=== PATIENT | female | born 1945 | race Caucasian/White ===

== ENCOUNTER → 2017-11-15 | Outpatient (CLI) | payer MEDICARE, SELFPAY | PROVIDERS: Family Provider Internal Medicine Adolescent Medicine; Visit Provider Internal Medicine | DX: R06.00 Dyspnea, unspecified (principal); I25.10 Atherosclerotic heart disease of native coronary artery without angina pectoris | CPT/HCPCS: 94060; 94640; 94726; 94729 ==

== ENCOUNTER → 2018-03-18 10:40 | Outpatient (POV) | payer MEDICARE, SELFPAY | PROVIDERS: Visit Provider Internal Medicine | DX: Z00.00 Encounter for general adult medical examination without abnormal findings (principal) ==

== ENCOUNTER → 2018-03-28 11:43 | Outpatient (CLI) | payer MEDICARE, SELFPAY | PROVIDERS: Visit Provider Internal Medicine Cardiovascular Disease | DX: R06.00 Dyspnea, unspecified (principal) | CPT/HCPCS: 36415; 83880 ==

== ENCOUNTER → 2018-04-28 09:32 | Outpatient (CLI) | payer MEDICARE, SELFPAY ==
[2018-04-28 13:01] VITALS: BP 135/82; BP 138/90; PULSE 81; PULSE 90; RESP 18; RESP 24; O2SAT 94; O2SAT 95
[2018-04-28 13:07] VITALS: PULSE 81; PULSE 84
== END ==
PROVIDERS: Family Provider Internal Medicine Adolescent Medicine; PCP Internal Medicine Adolescent Medicine; Visit Provider Internal Medicine
DX: R06.02 Shortness of breath (principal)
CPT/HCPCS: 94060; 94618; 94640; 94726; 94729

== ENCOUNTER → 2018-05-13 10:09 | Outpatient (POV) | payer MEDICARE, SELFPAY | PROVIDERS: Family Provider Internal Medicine Adolescent Medicine; PCP Internal Medicine Adolescent Medicine; Visit Provider Internal Medicine | DX: Z00.00 Encounter for general adult medical examination without abnormal findings (principal) ==

== ENCOUNTER → 2018-09-24 10:19 | Outpatient (CLI) | payer MEDICARE, SELFPAY ==
[2018-09-24 13:28] LABS: Alanine Aminotransferase 22 U/L (12-78); Albumin Level 3.8 gm/dL (3.4-5.0); Alkaline Phosphatase 115 U/L (46-116); Anion Gap 17.8 mEq/L (5-15); Aspartate Amino Transferase 19 U/L (15-37); Bilirubin,Direct 0.1 mg/dL (0.0-0.2); Bilirubin,Indirect 0.6 mg/dL (0.0-0.9); Bilirubin,Total 0.7 mg/dL (0.2-1.0); Blood Urea Nitrogen 25 mg/dL (7-18); Calcium 9.7 mg/dL (8.5-10.1); Carbon Dioxide 24 mmol/L (21.0-32.0); Chloride 103 mmol/L (98-107); Cholesterol 205 mg/dL (140-200); Creatinine,Serum 1.57 mg/dL (0.55-1.02); Estimated Glomerular Filt Rate 32 ml/min (>60); GFR (African American) 39 ML/MIN (>60); Glucose 144 mg/dL (74-106); HDL Cholesterol 51 mg/dL (29-89); LDL Cholesterol 86 mg/dL (0-130); Potassium 4.8 mmoL/L (3.5-5.1); Sodium 140 mmol/L (136-145); Total Protein,Serum 7.3 gm/dL (6.4-8.2); Triglycerides 341 mg/dL (30-200); VLDL Cholesterol 68 mg/dL (0-40)
== END ==
PROVIDERS: Visit Provider Physician Assistant
DX: G47.33 Obstructive sleep apnea (adult) (pediatric) (principal); I10 Essential (primary) hypertension; I11.9 Hypertensive heart disease without heart failure; I20.9 Angina pectoris, unspecified; I25.118 Atherosclerotic heart disease of native coronary artery with other forms of angina pectoris; R06.09 Other forms of dyspnea; R53.83 Other fatigue
CPT/HCPCS: 36415; 80048; 80061; 80076; 83880

== ENCOUNTER → 2018-09-30 07:49 | Outpatient (CLI) | payer MEDICARE, SELFPAY ==
--- NOTE | 2018-09-30 07:51 | CA_ITS ---
PROCEDURE: 2-D M-mode and color Doppler study INDICATIONS FOR THE TEST: Chest pain + COPD Heart Murmur Tobacco Smoking Palpitations Fatigue+ Syncope Edema+ Hypertension+Diabetes Mellitus Rheumatic Fever SOB+SHIRLEY+Obesity Hyperlipidemia Family History HD Additional History cad PATIENT INFORMATION HEIGHT: 61 WEIGHT:160 GENDER: Female B/P:119/85 2-D/M-MODE INTERPRETATION: 2-D MEASUREMENTS OBSERVED VALUES IN CMS Right Ventricular Dimension (RVDd) 1.3 Interventricular Septum (Thickness)(IVsd) 0.7 Left Ventricular Internal Dimensions(LVIDd) 6.3 Left Ventricular Posterior Wall (Thickness)(LVPWd) 0.8 Aortic Root 2.0 Aortic Cusp Separation 1.3 Left Atrial Dimensions (LAD) 3.8 2D 1. Left atrium is moderately enlarged, left ventricle is moderately dilated, severely reduced left ventricular systolic function, visually estimated ejection fraction approximately 20%, left ventricle is globally hypokinetic. 2. The right atrium and right ventricle are normal size and contractility. 3. The aortic valve is minimally thickened and fibrosed. 4. The mitral and tricuspid valve leaflets are minimally thickened. 5. The pulmonic valve is poorly visualized. 6. No significant pericardial effusion noted. DOPPLER INTERROGATION: Doppler interrogation of the aortic, mitral and tricuspid valvular presence of mild mitral and tricuspid regurgitation, tricuspid regurgitation jet velocity is inadequate for calculation of the right ventricular systolic pressure, Doppler evidence of low cardiac output state seen. Tissue Doppler is inconclusive CONCLUSION: 1. Moderately enlarged left atrium, moderately dilated left ventricle, severely reduced left ventricular systolic function, visually estimated ejection fraction of 20%, left ventricle is globally hypokinetic, Doppler evidence of low cardiac output state seen. 2. Mild mitral and tricuspid regurgitation 3. No significant pericardial effusion noted.
== END ==
PROVIDERS: PCP Internal Medicine Adolescent Medicine; Visit Provider Internal Medicine
DX: G47.33 Obstructive sleep apnea (adult) (pediatric) (principal); I10 Essential (primary) hypertension; I11.9 Hypertensive heart disease without heart failure; I20.9 Angina pectoris, unspecified; I25.118 Atherosclerotic heart disease of native coronary artery with other forms of angina pectoris; R06.09 Other forms of dyspnea; R53.83 Other fatigue
CPT/HCPCS: 93306

== ENCOUNTER → 2018-10-10 09:07 | Outpatient (CLI) | payer MEDICARE, SELFPAY ==
[2018-10-10 11:13] LABS: Anion Gap 16.1 mEq/L (5-15); Blood Urea Nitrogen 28 mg/dL (7-18); Calcium 9.4 mg/dL (8.5-10.1); Carbon Dioxide 29 mmol/L (21.0-32.0); Chloride 101 mmol/L (98-107); Creatinine,Serum 1.26 mg/dL (0.55-1.02); Estimated Glomerular Filt Rate 42 ml/min (>60); GFR (African American) 50 ML/MIN (>60); Glucose 118 mg/dL (74-106); Sodium 142 mmol/L (136-145)
[2018-10-10 11:16] LABS: Potassium 4.1 mmoL/L (3.5-5.1)
== END ==
PROVIDERS: Internal Medicine Cardiovascular Disease; PCP Internal Medicine Adolescent Medicine; Visit Provider Internal Medicine
DX: I20.9 Angina pectoris, unspecified; R06.09 Other forms of dyspnea; I11.9 Hypertensive heart disease without heart failure; R60.9 Edema, unspecified; G47.33 Obstructive sleep apnea (adult) (pediatric); R53.83 Other fatigue
CPT/HCPCS: 36415; 80048

== ENCOUNTER → 2018-10-20 09:16 | Outpatient (CLI) | payer MEDICARE, SELFPAY ==
[2018-10-20 14:34] LABS: Anion Gap 14.9 mEq/L (5-15); Blood Urea Nitrogen 19 mg/dL (7-18); Carbon Dioxide 26 mmol/L (21.0-32.0); Chloride 105 mmol/L (98-107); Creatinine,Serum 1.19 mg/dL (0.55-1.02); Estimated Glomerular Filt Rate 44 ml/min (>60); GFR (African American) 54 ML/MIN (>60); Glucose 124 mg/dL (74-106); Potassium 3.9 mmoL/L (3.5-5.1); Sodium 142 mmol/L (136-145)
== END ==
PROVIDERS: PCP Internal Medicine Adolescent Medicine; Visit Provider Internal Medicine Cardiovascular Disease
DX: I25.10 Atherosclerotic heart disease of native coronary artery without angina pectoris; I11.9 Hypertensive heart disease without heart failure; R06.00 Dyspnea, unspecified; R53.83 Other fatigue; R60.9 Edema, unspecified; G47.33 Obstructive sleep apnea (adult) (pediatric)
CPT/HCPCS: 36415; 80048

== ENCOUNTER → 2018-11-13 09:49 | Outpatient (CLI) | payer MEDICARE, SELFPAY ==
[2018-11-13 13:27] LABS: Basophils # 0.1 K/mm3 (0-0.2); Basophils % 0.7 % (0.1-2.0); Eosinophils # 0.2 K/mm3 (0.0-0.4); Eosinophils % 2.4 % (0.1-12.0); Hematocrit 36.5 % (37.0-47.0); Hemoglobin 11.5 g/dL (12.2-16.2); Lymphocytes # 2.3 K/mm3 (0.7-4.5); Lymphocytes % 33.7 % (10-50); Mean Corpuscular HGB Conc 31.6 g/dL (31.8-35.4); Mean Corpuscular Hemoglobin 26.7 pg (27.0-31.2); Mean Corpuscular Volume 84.4 fl (81-99); Mean Platelet Volume 8.6 fl (7.4-10.4); Monocytes # 0.3 K/mm3 (0.1-1.0); Monocytes % 4.4 % (1.7-9.3); Neutrophils % 58.8 % (37.0-80.0); Platelet Count 224 K/mm3 (142-424); Red Blood Count 4.32 M/mm3 (4.20-5.40); Red Cell Distribution Width 14.9 % (11.5-17.5); White Blood Count 6.7 K/mm3 (4.8-10.8)
[2018-11-13 14:14] LABS: Anion Gap 15.3 mEq/L (5-15); Blood Urea Nitrogen 18 mg/dL (7-18); Carbon Dioxide 25 mmol/L (21.0-32.0); Chloride 104 mmol/L (98-107); Creatinine,Serum 1.22 mg/dL (0.55-1.02); Estimated Glomerular Filt Rate 43 ml/min (>60); Free Thyroxine Index 2.8 ug/dL (5.93-13.13); GFR (African American) 52 ML/MIN (>60); Glucose 120 mg/dL (74-106); Potassium 4.3 mmoL/L (3.5-5.1); Sodium 140 mmol/L (136-145); T4 (Thyroxine) 8.3 ug/dl (4.7-13.3); Thyroid Stimulating Hormone 2.93 uIU/ml (0.358-3.740); Triiodothryronine (T3) Uptake 34 % (31-39)
== END ==
PROVIDERS: PCP Internal Medicine Adolescent Medicine; Visit Provider Internal Medicine Cardiovascular Disease
DX: I25.118 Atherosclerotic heart disease of native coronary artery with other forms of angina pectoris; I42.0 Dilated cardiomyopathy; R06.09 Other forms of dyspnea
CPT/HCPCS: 36415; 80048; 84436; 84443; 84479; 85025

== ENCOUNTER → 2018-12-15 20:06 | Outpatient (CLI) | payer MEDICARE, SELFPAY | PROVIDERS: PCP Internal Medicine Adolescent Medicine; Visit Provider Internal Medicine Cardiovascular Disease | DX: G47.33 Obstructive sleep apnea (adult) (pediatric) (principal) | CPT/HCPCS: 95810 ==

== ENCOUNTER 2018-12-25 14:01 | Inpatient (IN) ==
[2018-12-25 14:34] LABS: White Blood Count 8.7 K/mm3 (4.8-10.8)
[2018-12-25 14:35] LABS: Basophils % 0.2 % (0.1-2.0); Eosinophils # 0.1 K/mm3 (0.0-0.4); Eosinophils % 1.1 % (0.1-12.0); Hematocrit 42.6 % (37.0-47.0); Hemoglobin 13.4 g/dL (12.2-16.2); Lymphocytes # 1.5 K/mm3 (0.7-4.5); Lymphocytes % 17.5 % (10-50); Mean Corpuscular HGB Conc 31.4 g/dL (31.8-35.4); Mean Corpuscular Hemoglobin 26.7 pg (27.0-31.2); Mean Corpuscular Volume 85.1 fl (81-99); Mean Platelet Volume 8.3 fl (7.4-10.4); Monocytes # 0.5 K/mm3 (0.1-1.0); Monocytes % 5.5 % (1.7-9.3); Neutrophils # 6.6 K/mm3 (1.8-7.8); Neutrophils % 75.7 % (37.0-80.0); Platelet Count 282 K/mm3 (142-424); Red Blood Count 5.01 M/mm3 (4.20-5.40); Red Cell Distribution Width 14.8 % (11.5-17.5)
[2018-12-25 14:54] LABS: Albumin Level 3.8 gm/dL (3.4-5.0); Anion Gap 16.5 mEq/L (5-15); Bilirubin,Total 1.4 mg/dL (0.2-1.0); Calcium 9.4 mg/dL (8.5-10.1); Digoxin 2.92 ng/mL (1.15-2.56); Globulin 3.8 gm/dl (1.3-3.2); Potassium 3.5 mmoL/L (3.5-5.1); Total Protein,Serum 7.6 gm/dL (6.4-8.2)
--- NOTE | 2018-12-25 14:57 | Emergency Department Note ---
ED Disposition Clinical Impression: Gastroenteritis, Dehydration, Nausea Nausea with vomiting Qualifiers: Vomiting type: unspecified Vomiting Intractability: unspecified Qualified Code(s): R11.2 - Nausea with vomiting, unspecified Disposition: Admitted as Observation Condition on Discharge: Fair Instructions: DI for Diarrhea and Traveler's Diarrhea -- Adult, DI for Diarrhea and Traveler's Diarrhea -- Child, DI for Nausea -- Adult, DI for Nausea -- Child Referrals: David Lewis MD [Primary Care Provider] - - Critical Care Critical Care Time: No Attestation: On 12/25/18, the high probability of a clinically significant, sudden or life threatening deterioration of the following system(s) required my full and direct attention, intervention and personal management. The time I documented below is in addition to time spent performing reported procedures but includes the following listed in this critical care notation. Medical Decision Making - Medical Records Medical records reviewed: Yes: I reviewed the patient's medical records. - Augustine Inquiry Pt receiving controlled substance: No Augustine was queried for this patient: No Vital Signs: 12/25/18 14:02 12/25/18 15:20 Temperature 98.5 F Temperature Source Oral Pulse Rate [Right Radial] 89 69 Respiratory Rate 20 18 Blood Pressure [Right Arm] 105/58 L 112/51 L Blood Pressure Mean [Right Arm] 73 71 Blood Pressure Source [Right Arm] Automatic Cuff Blood Pressure Position [Right Arm] Sitting 02 Sat by Pulse Oximetry 99 96 Oxygen Delivery Method Room Air Room Air - Lab Data Lab results reviewed: Yes: I reviewed the patient's lab results. Lab Results 12/25/18 14:25: WBC 8.7, RBC 5.01, Hgb 13.4, Hct 42.6, MCV 85.1, MCH 26.7 L, MCHC 31.4 L, RDW 14.8, Plt Count 282, MPV 8.3, Neut % (Auto) 75.7, Lymph % (Auto) 17.5, [place] % (Auto) 5.5, Eos % (Auto) 1.1, Baso % (Auto) 0.2, Neut # (Auto) 6.6, Lymph # (Auto) 1.5, [place] # (Auto) 0.5, Eos # (Auto) 0.1, Baso # (Auto) 0.0 12/25/18 14:25: Sodium 142, Potassium 3.5, Chloride 102, Carbon Dioxide 27, Anion Gap 16.5 H, BUN 17, Creatinine 1.84 H, Estimated Creat Clear 29, Estimated GFR 27 L, Est GFR ( Amer) 33 L, Glucose 164 H, Calcium 9.4, Total Bilirubin 1.4 H, AST 32, ALT 29, Alkaline Phosphatase 110, Troponin I 0.04, Total Protein 7.6, Albumin 3.8, Globulin 3.8 H, Albumin/Globulin Ratio 1.0 L, Digoxin 2.92 H* Result diagrams: 12/25/18 14:25 12/25/18 14:25 Orders (Tests/Meds): ED MEDICATIONS Generic Name Dose Route Start Last Admin Trade Name Freq PRN Reason Stop Dose Admin Lactated Ringer's 1,000 mls @ 999 mls/hr 12/25/18 14:30 12/25/18 14:27 Lactated Ringer's 1000 Ml Bag IV 12/25/18 15:30 999 mls/hr .[id number] [place] Administration Discontinued Medications Generic Name Dose Route Start Last Admin Trade Name Freq PRN Reason Stop Dose Admin Ondansetron HCl 4 mg 12/25/18 14:23 12/25/18 14:27 Zofran 4mg/2ml Vial IV 12/25/18 14:24 4 mg ONCE ONE Administration Medical Decision Narrative: Dehydration gastroenteritis possible hypokalemia, possible digitalis reaction, patient will be hydrated but because of her age and recent catheterization most probably will be admitted for 24 hours Patient's laboratories reviewed borderline digitoxicity consistent with dehydration patient will be admitted for hydration and observation next 24 hours General Adult HPI - General Chief complaint: Nausea/Vomiting/Diarrhea Stated complaint: nausea/vomiting/diarrhea Time Seen by Provider: 12/25/18 14:20 Mode of Arrival: Family Vehicle Source of Information: Patient, Relative Limitations: No Limitations Description of Symptoms (Recalled from ER Triage Doc. by RN): pt c/o nausea,vomiting,diarrhea. states diarrhea started on the 11/27/18 after she started her digoxin and the nausea and vomiting started on 12/19/18 after her heart cath. pt sent from 's office. 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 she was recently started on dig patient denies fever or chills is here with her family - Related Data Home Medications Medication Instructions Recorded Confirmed aspirin 81 mg tablet,delayed 81 mg PO QDAY 12/03/17 12/25/18 release fluticasone 50 mcg/actuation nasal 1 spray INTRANASAL DAILY 09/24/18 12/25/18 spray,suspension levothyroxine 50 mcg capsule 50 mcg PO QDAY cap 11/06/18 12/25/18 Albuterol Sulfate [Proventil-HFA 1 - 2 puffs IH Q6HP PRN 12/01/18 12/25/18 90mcg/puff Inh] Atorvastatin Calcium [Lipitor 40mg 40 mg PO QDAY 12/01/18 12/25/18 Tablet] Carvedilol [Carvedilol 12.5mg Tab] 12.5 mg PO BID 12/01/18 12/25/18 Digoxin 0.125 mg PO DAILY 12/01/18 12/25/18 Fluoxetine HCl [Prozac] 20 mg PO QDAY 12/01/18 12/25/18 Furosemide [Furosemide 20mg Tab] 40 mg PO QDAY 12/01/18 12/25/18 Losartan Potassium 100 mg PO DAILY 12/01/18 12/25/18 Omeprazole [Omeprazole 20mg 20 mg PO BID 12/01/18 12/25/18 Capsule] Ropinirole HCl [Requip] 1 mg PO QDAY 12/01/18 12/25/18 Allergies Allergy/AdvReac Type Severity Reaction Status Date / Time Penicillins [PENICILLINS] Allergy Unknown I-HIVES Verified 12/25/18 14:22 [facility] History - Hepatitis A Screen Drug use history?: No High risk sexual behaviors?: No History of sexually transmitted infection?: No Currently employed?: No Childcare worker?: No Do you have indoor plumbing?: Yes Do you have electricity?: Yes Attestation statement:: This patient has been screened for Hepatitis A risk factors. I have reviewed the patient's past medical history: Yes Medical History: Reports:: Atherosclerotic Heart Disease, Coronary Artery Disease, Hypertension Denies:: Cancer, Diabetes Mellitus Type 1, Diabetes Mellitus Type 2, MRSA Comment: NADIA Other Surgeries: Yes: No Previous Surgery, Cardiac Catheterization, Coronary Stent Amputation: No Fractures: No - Social History Smoking Status: Former smoker Alcohol Intake: never Alcohol Intake Frequency:: other Substance Use Type: denies use Occupational Status: retired - Psychiatric History Expresses thoughts of harming self/others: None Suicide Plan Description: No Plan Family Hx:: No significant family history ROS Obtained: Yes All systems reviewed & no additional complaints - Constitutional Constitutional: Reports as per HPI Physical Exam - General General appearance: alert, in no apparent distress (Not in any distress now but does have nausea oral mucosa dry) - Head Head exam: atraumatic, normocephalic, normal inspection - Eye Eye exam: Present: normal appearance, PERRL, EOMI - ENT ENT exam: Present: normal exam, normal oropharynx, mucous membranes dry, TM's normal bilaterally, normal external ear exam - Neck Neck exam: Present: normal inspection, full ROM, trachea midline. Absent: meningismus, lymphadenopathy - Chest Chest inspection: Present: normal inspection, symmetric chest wall rise. Absent: tenderness - Respiratory Respiratory exam: Present: normal lung sounds bilaterally. Absent: respiratory distress - Cardiovascular Cardiovascular exam: Present: regular rate, normal rhythm. Absent: JVD - Abdominal Exam Abdominal exam: Present: soft, normal bowel sounds. Absent: distention, tenderness, guarding - Extremities Exam Extremities exam: Present: normal inspection, full ROM, normal capillary refill. Absent: calf tenderness - Back Exam Back exam: Present: normal inspection. Absent: tenderness - Neurological Exam Neurological exam: Present: alert, oriented X3 - Psychiatric Psychiatric exam: Present: normal affect, normal mood - Skin Skin exam: Present: warm, dry, intact, normal color - Lymphatic Lymphatic Findings: no adenopathy
--- NOTE | 2018-12-25 21:55 | History & Physical Report ---
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 She underwent LHC last week with stenting of her LAD and was also started on daily digoxin. Since that time she describes progressive nausea, vomiting, multiple diarrhea stools, weakness, abnormal vision and also fever over 100. ED evaluation revealed elevated digoxin level, creatinine above baseline constituting ARIES and she was admitted for cardiac monitoring and IV hydration. [facility] History I have reviewed the patient's past medical history: Yes Medical History: Reports:: Atherosclerotic Heart Disease, Cardiomyopathy, Congestive Heart Failure, Chronic Obstructive Pulmonary Disease (COPD), Coronary Artery Disease, Hyperlipidemia, Hypertension, Renal Insufficiency, Urinary Tract Infection Denies:: Cancer, Diabetes Mellitus Type 1, Diabetes Mellitus Type 2, MRSA Have you ever received a pneumonia vaccine?: Yes Have you received a flu vaccine this season?: Yes Other Medical History: Reports: Arthritis, Thyroid Disease Laterality Cases: Left: Other (foot) Other Surgeries: Yes: Appendectomy, Cardiac Catheterization, Cholecystectomy, Coronary Stent, , Other (back surgery) Amputation: No Fractures: No - *Social History Educational Level: Attended College Smoking Status: Never smoker Alcohol Intake: never Alcohol Intake Frequency:: other Substance Use Type: denies use Occupational Status: retired Housing: house Household Members: spouse Travel in the last 8 weeks: None - Psychiatric History Expresses thoughts of harming self/others: None Suicide Plan Description: No Plan Pschychiatric History:: Reports:: Anxiety (on fluoxetine) *Family Hx:: No significant family history Review of Systems - Review of Systems Review of systems:: pertinent systems reviewed and negative unless documented below - Constitutional Reports anorexia, Reports fatigue, Reports weakness - Eyes Reports blurry vision - ENT Reports dry mouth, Denies abnormal hearing - *Cardiovascular Reports shortness of breath with activity, Reports lightheadedness, Denies chest pain, Denies fast heart rate, Denies fainting - *Respiratory Denies cough - *Gastrointestinal Reports change in bowel habits, Reports loose stools, Reports nausea, Reports vomiting, Denies abdominal pain - *Musculoskeletal Reports back pain - *Neurologic Reports weakness Meds Home Medications Medication Instructions Recorded Confirmed Type aspirin 81 mg tablet,delayed 81 mg PO QDAY 12/03/17 12/25/18 History release fluticasone 50 mcg/actuation nasal 1 spray INTRANASAL DAILY 09/24/18 12/25/18 History spray,suspension levothyroxine 50 mcg capsule 50 mcg PO QDAY cap 11/06/18 12/25/18 History Albuterol Sulfate [Proventil-HFA 1 - 2 puffs IH Q6HP PRN 12/01/18 12/25/18 History 90mcg/puff Inh] Atorvastatin Calcium [Lipitor 40mg 40 mg PO QDAY 12/01/18 12/25/18 History Tablet] Carvedilol [Carvedilol 12.5mg Tab] 12.5 mg PO BID 12/01/18 12/25/18 History Digoxin 0.125 mg PO DAILY 12/01/18 12/25/18 History Fluoxetine HCl [Prozac] 20 mg PO QDAY 12/01/18 12/25/18 History Furosemide [Furosemide 20mg Tab] 40 mg PO QDAY 12/01/18 12/25/18 History Losartan Potassium 100 mg PO DAILY 12/01/18 12/25/18 History Omeprazole [Omeprazole 20mg 20 mg PO BID 12/01/18 12/25/18 History Capsule] Ropinirole HCl [Requip] 1 mg PO QDAY 12/01/18 12/25/18 History Allergies Allergy/AdvReac Type Severity Reaction Status Date / Time Penicillins [PENICILLINS] Allergy Unknown I-HIVES Verified 12/25/18 14:22 Exam Vital signs and Labs for Last 24 Hours: Temp Pulse Resp BP Pulse Ox 98.8 F 85 17 112/63 95 12/25/18 19:48 12/25/18 19:48 12/25/18 19:48 12/25/18 19:48 12/25/18 19:48 Laboratory Results - last 24 hr 12/25/18 14:25: WBC 8.7, RBC 5.01, Hgb 13.4, Hct 42.6, MCV 85.1, MCH 26.7 L, MCHC 31.4 L, RDW 14.8, Plt Count 282, MPV 8.3, Neut % (Auto) 75.7, Lymph % (Auto) 17.5, [place] % (Auto) 5.5, Eos % (Auto) 1.1, Baso % (Auto) 0.2, Neut # (Auto) 6.6, Lymph # (Auto) 1.5, [place] # (Auto) 0.5, Eos # (Auto) 0.1, Baso # (Auto) 0.0 12/25/18 14:25: Sodium 142, Potassium 3.5, Chloride 102, Carbon Dioxide 27, Anion Gap 16.5 H, BUN 17, Creatinine 1.84 H, Estimated Creat Clear 29, Estimated GFR 27 L, Est GFR ( Amer) 33 L, Glucose 164 H, Calcium 9.4, Total Bilirubin 1.4 H, AST 32, ALT 29, Alkaline Phosphatase 110, Troponin I 0.04, Total Protein 7.6, Albumin 3.8, Globulin 3.8 H, Albumin/Globulin Ratio 1.0 L, Digoxin 2.92 H* I & O for Last 24 hours: Intake & Output 12/23/18 12/24/18 12/25/18 12/26/18 11:59 11:59 11:59 11:59 Intake Total 1660 / 1660 Balance 1660 / 1660 Weight 151 lb 7 oz - Constitutional no acute distress, cooperative - *Routine HEENT Exam Head: Present: normocephalic Eye: Present: conjunctivae pink ENT: Present: mucous membranes moist - *Routine Neck Exam Present: supple. Absent: lymphadenopathy - *Routine Respiratory Exam Present: CTA bilaterally - *Routine Cardiovascular Exam Present: RRR, murmur - *Routine Abdominal Exam Present: soft, tenderness. Absent: distended, rebound (hyperactive BS throughout) - *Routine Extremities Exam Present: pulses intact. Absent: clubbing, edema - *Routine Skin Exam Present: intact, warm. Absent: rash - *Routine Neurological Exam Present: oriented X3 Assessment and Plan (1) ARIES (acute kidney injury) Current visit: Yes Status: Acute Category: Medical Code(s): N17.9 - Acute kidney failure, unspecified (2) Digoxin toxicity Current visit: Yes Status: Acute Qualifiers: Injury intent: accidental or unintentional Category: Medical Code(s): T46.0X1A - Poisoning by cardiac-stimulant glycosides and drugs of similar action, accidental (unintentional), initial encounter (3) Cardiomyopathy Current visit: Yes Status: Acute Category: Medical Code(s): I42.9 - Cardiomyopathy, unspecified (4) Dehydration Current visit: Yes Status: Acute Category: Medical Code(s): E86.0 - Dehydration (5) Nausea with vomiting Current visit: Yes Status: Acute Qualifiers: Vomiting type: unspecified Vomiting Intractability: unspecified Qualified Code(s): R11.2 - Nausea with vomiting, unspecified Category: Medical Code(s): R11.2 - Nausea with vomiting, unspecified (6) Diarrhea Current visit: No Status: Acute Qualifiers: Diarrhea type: unspecified type Qualified Code(s): R19.7 - Diarrhea, unspecified Category: Medical Code(s): R19.7 - Diarrhea, unspecified - Assessment and plan all Dx Assessment and Plan for all problems:: Hold digoxin and rehydrate. Will trend dig level and creatinine, monitor telemetry and follow with cardiology. Clear liquid diet as tolerated Stool PCR ordered to assess her reported history of fever but has been afebrile since admission today
[2018-12-26 07:05] LABS: Basophils % 0.3 % (0.1-2.0); Eosinophils # 0.1 K/mm3 (0.0-0.4); Eosinophils % 1.6 % (0.1-12.0); Hematocrit 33.3 % (37.0-47.0); Lymphocytes # 1.7 K/mm3 (0.7-4.5); Lymphocytes % 25.8 % (10-50); Mean Corpuscular HGB Conc 31.9 g/dL (31.8-35.4); Mean Corpuscular Hemoglobin 26.9 pg (27.0-31.2); Mean Corpuscular Volume 84.4 fl (81-99); Mean Platelet Volume 8.3 fl (7.4-10.4); Monocytes # 0.5 K/mm3 (0.1-1.0); Monocytes % 8.1 % (1.7-9.3); Neutrophils # 4.2 K/mm3 (1.8-7.8); Neutrophils % 64.2 % (37.0-80.0); Platelet Count 187 K/mm3 (142-424); Red Blood Count 3.94 M/mm3 (4.20-5.40); Red Cell Distribution Width 14.8 % (11.5-17.5); White Blood Count 6.5 K/mm3 (4.8-10.8)
--- NOTE | 2018-12-26 07:20 | Pharmacy Consult Notes ---
[facility] Pharmacy VTE Monitoring - Patient Demographics Admission date: 12/25/18 Report Date: 12/26/18 Time: 07:19 Allergies/Adverse Reactions: Patient Allergies Penicillins [PENICILLINS] Allergy (Unknown, Verified 12/25/18 14:22) I-HIVES Height: 1.55 m Weight: 70.392 kg Patient Problems: Current Active Problems Nausea (Acute) Gastroenteritis (Acute) Dehydration (Acute) ARIES (acute kidney injury) (Acute) Digoxin toxicity (Acute) Cardiomyopathy (Acute) Nausea with vomiting (Acute) - VTE Risk Labs: VTE Related Lab Results Hgb 13.4 g/dL (12.2-16.2) 12/25/18 14:25 Hct 33.3 % (37.0-47.0) L 12/26/18 06:42 Plt Count 187 K/mm3 (142-424) D 12/26/18 06:42 BUN 17 mg/dL (7-18) 12/25/18 14:25 Creatinine 1.84 mg/dL (0.55-1.02) H 12/25/18 14:25 Estimated Creat Clear 29 mL/min (50-200) 12/25/18 14:25 Was VTE Risk Assessment Performed: Yes VTE Score: 6 VTE Risk Level: Moderate Risk Clinical Trial Participant: No - Prophylaxis VTE Prophylaxis Ordered?: Yes Types of VTE Prophylaxis: TEDS Knee High
[2018-12-26 07:27] LABS: Hemoglobin 10.7 g/dL (12.2-16.2)
[2018-12-26 07:37] LABS: Anion Gap 13.2 mEq/L (5-15); Digoxin 2.67 ng/mL (1.15-2.56); Potassium 3.2 mmoL/L (3.5-5.1)
[2018-12-26 07:43] LABS: Calcium 8.2 mg/dL (8.5-10.1)
--- NOTE | 2018-12-26 08:03 | Progress Note ---
Internal Medicine - PN: Subj *Date: 12/26/18 *Time: 08:00 Interval history: Patient somewhat better, however continues to have some abdominal cramping and feels very weak. Exam Vital signs and Labs for Last 24 Hours: Temp Pulse Resp BP Pulse Ox 98.6 F 83 18 123/60 95 12/26/18 04:00 12/26/18 04:00 12/26/18 04:00 12/26/18 04:00 12/26/18 04:00 Laboratory Results - last 24 hr 12/25/18 14:25: WBC 8.7, RBC 5.01, Hgb 13.4, Hct 42.6, MCV 85.1, MCH 26.7 L, MCHC 31.4 L, RDW 14.8, Plt Count 282, MPV 8.3, Neut % (Auto) 75.7, Lymph % (Auto) 17.5, [place] % (Auto) 5.5, Eos % (Auto) 1.1, Baso % (Auto) 0.2, Neut # (Auto) 6.6, Lymph # (Auto) 1.5, [place] # (Auto) 0.5, Eos # (Auto) 0.1, Baso # (Auto) 0.0 12/25/18 14:25: Sodium 142, Potassium 3.5, Chloride 102, Carbon Dioxide 27, Anion Gap 16.5 H, BUN 17, Creatinine 1.84 H, Estimated Creat Clear 29, Estimated GFR 27 L, Est GFR ( Amer) 33 L, Glucose 164 H, Calcium 9.4, Total Bilirubin 1.4 H, AST 32, ALT 29, Alkaline Phosphatase 110, Troponin I 0.04, Total Protein 7.6, Albumin 3.8, Globulin 3.8 H, Albumin/Globulin Ratio 1.0 L, Digoxin 2.92 H* 12/26/18 05:52: POC Glucose 127 H 12/26/18 06:42: WBC 6.5 D, RBC 3.94 L, Hgb 10.7 L D, Hct 33.3 L, MCV 84.4, MCH 26.9 L, MCHC 31.9, RDW 14.8, Plt Count 187 D, MPV 8.3, Neut % (Auto) 64.2, Lymph % (Auto) 25.8, [place] % (Auto) 8.1, Eos % (Auto) 1.6, Baso % (Auto) 0.3, Neut # (Auto) 4.2, Lymph # (Auto) 1.7, [place] # (Auto) 0.5, Eos # (Auto) 0.1, Baso # (Auto) 0.0 12/26/18 06:42: Sodium 142, Potassium 3.2 L, Chloride 106, Carbon Dioxide 26, Anion Gap 13.2, BUN 16, Creatinine 1.87 H, Estimated Creat Clear 30, Estimated GFR 26 L, Est GFR ( Amer) 32 L, Glucose 117 H D, Calcium 8.2 L D, Digoxin 2.67 H* I & O for Last 24 hours: Intake & Output 12/23/18 12/24/18 12/25/18 12/26/18 11:59 11:59 11:59 11:59 Intake Total 2882 / 2882 Balance 2882 / 2882 Weight 155 lb 3 oz Narrative: No jaundice or scleral icterus. Patient is pleasant, awake and alert. Oropharynx clear. No JVD. Lungs and the angles are clear. Heart rate regular. Abdomen is soft but diffusely tender with no rebound or guarding. No distal edema or clubbing. Neurologically intact Assessment and Plan (1) ARIES (acute kidney injury) Current visit: Yes Status: Acute Category: Medical Code(s): N17.9 - Acute kidney failure, unspecified Creatinine is unchanged overnight essentially. Continue low-dose intravenous fluids. Hold digoxin. Follow-up labs tomorrow. Acute kidney injury secondary to a combination of dehydration and digitoxin toxicity. (2) Digoxin toxicity Current visit: Yes Status: Acute Qualifiers: Injury intent: accidental or unintentional Category: Medical Code(s): T46.0X1A - Poisoning by cardiac-stimulant glycosides and drugs of similar action, accidental (unintentional), initial encounter Continue to hold digitalis. Follow-up labs tomorrow. (3) Cardiomyopathy Current visit: Yes Status: Acute Category: Medical Code(s): I42.9 - Cardiomyopathy, unspecified (4) Dehydration Current visit: Yes Status: Acute Category: Medical Code(s): E86.0 - Dehydration (5) Nausea with vomiting Current visit: Yes Status: Acute Qualifiers: Vomiting type: unspecified Vomiting Intractability: unspecified Qualified Code(s): R11.2 - Nausea with vomiting, unspecified Category: Medical Code(s): R11.2 - Nausea with vomiting, unspecified Multifactorial etiology. Phenergan for symptom medic relief. Continue IV fluids (6) Diarrhea Current visit: No Status: Acute Qualifiers: Diarrhea type: unspecified type Qualified Code(s): R19.7 - Diarrhea, unspecified Category: Medical Code(s): R19.7 - Diarrhea, unspecified (7) Chronic systolic heart failure Current visit: Yes Status: Acute Category: Medical Code(s): I50.22 - Chronic systolic (congestive) heart failure (8) Ischemic cardiomyopathy Current visit: Yes Status: Acute Category: Medical Code(s): I25.5 - Ischemic cardiomyopathy Cautious IV fluids given propensity for fluid overload.
[2018-12-27 07:32] LABS: Basophils % 0.2 % (0.1-2.0); Eosinophils # 0.1 K/mm3 (0.0-0.4); Hematocrit 32.4 % (37.0-47.0); Hemoglobin 10.4 g/dL (12.2-16.2); Lymphocytes # 1.6 K/mm3 (0.7-4.5); Lymphocytes % 24.5 % (10-50); Mean Corpuscular HGB Conc 32.1 g/dL (31.8-35.4); Mean Corpuscular Hemoglobin 26.9 pg (27.0-31.2); Mean Corpuscular Volume 83.6 fl (81-99); Monocytes # 0.4 K/mm3 (0.1-1.0); Monocytes % 6.8 % (1.7-9.3); Neutrophils # 4.3 K/mm3 (1.8-7.8); Neutrophils % 66.5 % (37.0-80.0); Platelet Count 207 K/mm3 (142-424); Red Blood Count 3.88 M/mm3 (4.20-5.40); Red Cell Distribution Width 15.1 % (11.5-17.5); White Blood Count 6.4 K/mm3 (4.8-10.8)
[2018-12-27 07:42] LABS: Anion Gap 15.1 mEq/L (5-15); Calcium 8.3 mg/dL (8.5-10.1); Potassium 3.1 mmoL/L (3.5-5.1)
--- NOTE | 2018-12-27 09:01 | Progress Note ---
Internal Medicine - PN: Subj *Date: 12/27/18 *Time: 09:00 Interval history: Patient is sleeping comfortably. When awakened she is alert. Pleasant. States that she feels somewhat better and that her stomach feels better. Tolerating oral antibiotics well. Exam Vital signs and Labs for Last 24 Hours: Temp Pulse Resp BP Pulse Ox 99.0 F 81 18 128/72 97 12/27/18 08:00 12/27/18 08:00 12/27/18 08:00 12/27/18 08:00 12/27/18 08:00 Laboratory Results - last 24 hr 12/25/18 13:00: Stl Aeromonas (PCR) Not detected, Stl C. cayetanensis PCR Not detected, Stool Rotavirus (PCR) Not detected, Stl Adenov F 40/41 PCR Not detected, Stool Astrovirus (PCR) Not detected, Stool Campylobacter PCR Not detected, Stl C.difficile Tox PCR Detected A, Stool Cryptosporidium PCR Not detected, Stl E.coli Shiga Tox PCR Not detected, Stool E coli O157 PCR Not detected, Stl Enterotoxigenic E PCR Not detected, Stool EPEC (PCR) Not detected, Stool EAEC (PCR) Not detected, Stl E. histolytica PCR Not detected, Stool Giardia Lamblia PCR Not detected, Stool Salmonella PCR Not detected, Stool Sapovirus (PCR) Not detected, Stl P. shigelloides PCR Not detected, Stl Shigella/EIEC PCR Not detected, St Y.enterocolitica PCR Not detected, Stool Vibrio (PCR) Not detected, Stl Vibrio cholerae PCR Not detected, Stl Norovirus GI/GII PCR Not detected 12/26/18 10:38: POC Glucose 123 H 12/27/18 06:55: WBC 6.4, RBC 3.88 L, Hgb 10.4 L, Hct 32.4 L, MCV 83.6, MCH 26.9 L, MCHC 32.1, RDW 15.1, Plt Count 207, MPV 8.0, Neut % (Auto) 66.5, Lymph % (Auto) 24.5, [place] % (Auto) 6.8, Eos % (Auto) 2.0, Baso % (Auto) 0.2, Neut # (Auto) 4.3, Lymph # (Auto) 1.6, [place] # (Auto) 0.4, Eos # (Auto) 0.1, Baso # (Auto) 0.0 12/27/18 06:55: Sodium 143, Potassium 3.1 L, Chloride 106, Carbon Dioxide 25, Anion Gap 15.1 H, BUN 13, Creatinine 1.93 H, Estimated Creat Clear 29, Estimated GFR 25 L, Est GFR ( Amer) 31 L, Glucose 120 H, Calcium 8.3 L I & O for Last 24 hours: Intake & Output 12/24/18 12/25/18 12/26/18 12/27/18 11:59 11:59 11:59 11:59 Intake Total 3122 / 3122 3602 / 3602 Balance 3122 / 3122 3602 / 3602 Weight 155 lb 3 oz 155 lb 3.005 oz Narrative: Patient is pleasant. No scleral icterus or jaundice. Lung clear in the anterior zamora. Heart rate regular with occasional ectopic beats. Good distal perfusion. Abdomen is soft, nontender. Slight distention but no rebound or guarding. Normal bowel sounds. Neurologically intact. Oropharynx clear. No JVD. Assessment and Plan (1) ARIES (acute kidney injury) Current visit: Yes Status: Acute Category: Medical Code(s): N17.9 - Acute kidney failure, unspecified (2) Digoxin toxicity Current visit: Yes Status: Acute Qualifiers: Injury intent: accidental or unintentional Category: Medical Code(s): T46.0X1A - Poisoning by cardiac-stimulant glycosides and drugs of similar action, accidental (unintentional), initial encounter (3) Cardiomyopathy Current visit: Yes Status: Acute Category: Medical Code(s): I42.9 - C ardiomyopathy, unspecified (4) Dehydration Current visit: Yes Status: Acute Category: Medical Code(s): E86.0 - Dehydration (5) Nausea with vomiting Current visit: Yes Status: Acute Qualifiers: Vomiting type: unspecified Vomiting Intractability: unspecified Qualified Code(s): R11.2 - Nausea with vomiting, unspecified Category: Medical Code(s): R11.2 - Nausea with vomiting, unspecified (6) Diarrhea Current visit: No Status: Acute Qualifiers: Diarrhea type: unspecified type Qualified Code(s): R19.7 - Diarrhea, unspecified Category: Medical Code(s): R19.7 - Diarrhea, unspecified (7) Chronic systolic heart failure Current visit: Yes Status: Acute Category: Medical Code(s): I50.22 - Chronic systolic (congestive) heart failure (8) Ischemic cardiomyopathy Current visit: Yes Status: Acute Category: Medical Code(s): I25.5 - Ischemic cardiomyopathy (9) C. difficile colitis Current visit: Yes Status: Acute Category: Medical Code(s): A04.72 - Enterocolitis due to Clostridium difficile, not specified as recurrent We started 2 different oral antibiotics yesterday. This infection is not hospital acquired. Continue rehydration. Change IV fluids for hypokalemia noted this morning. Check electrolytes tomorrow. If improving would consider discharge home on adjusted medications for issues with digitalis toxicity and dehydration as noted above.
[2018-12-28 06:51] LABS: Basophils % 0.2 % (0.1-2.0); Eosinophils # 0.2 K/mm3 (0.0-0.4); Eosinophils % 2.9 % (0.1-12.0); Hematocrit 31.4 % (37.0-47.0); Hemoglobin 10.1 g/dL (12.2-16.2); Lymphocytes # 1.6 K/mm3 (0.7-4.5); Lymphocytes % 28.7 % (10-50); Mean Corpuscular Hemoglobin 27.2 pg (27.0-31.2); Mean Corpuscular Volume 84.8 fl (81-99); Mean Platelet Volume 8.4 fl (7.4-10.4); Monocytes # 0.4 K/mm3 (0.1-1.0); Monocytes % 7.8 % (1.7-9.3); Neutrophils # 3.4 K/mm3 (1.8-7.8); Neutrophils % 60.4 % (37.0-80.0); Platelet Count 195 K/mm3 (142-424); Red Blood Count 3.71 M/mm3 (4.20-5.40); Red Cell Distribution Width 15.3 % (11.5-17.5); White Blood Count 5.7 K/mm3 (4.8-10.8)
[2018-12-28 07:03] LABS: Albumin Level 2.7 gm/dL (3.4-5.0); Albumin/Globulin Ratio 0.9 (1.1-1.8); Anion Gap 14.6 mEq/L (5-15); Bilirubin,Total 0.4 mg/dL (0.2-1.0); Globulin 2.9 gm/dl (1.3-3.2); Potassium 4.6 mmoL/L (3.5-5.1); Total Protein,Serum 5.6 gm/dL (6.4-8.2)
--- NOTE | 2018-12-28 07:41 | Discharge Summary ---
General - General Admission date:: 12/26/18 Discharge date: 12/28/18 HPI HPI: 73 yr old female with history of CAD and more recently systolic heart failure presented to the ED after discussion with her sole blacker. She underwent LHC last week with stenting of her LAD and was also started on daily digoxin. Since that time she describes progressive nausea, vomiting, multiple diarrhea stools, weakness, abnormal vision and also fever over 100. ED evaluation revealed elevated digoxin level, creatinine above baseline constituting ARIES and she was admitted for cardiac monitoring and IV hydration. Hospital Course Hospital Course: Patient was admitted. Digitoxin was held, fluids were given. She had diarrhea and so standard PCR testing was done which revealed the presence of C. difficile, [id number]. She was begun on p.o. Flagyl and vancomycin. Over the next couple days she improved. Kidney function improved and creatinine this morning is down to 1.7 which is improved over baseline and certainly on the right track. She felt stronger. Was able to get up and do things by herself. She will be discharged home with instructions to hold her digoxin. She will be placed on Flagyl and vancomycin for C. difficile and I will see her in the office in a couple of days to reevaluate medications and ongoing cardiac follow- up. Objective Vital signs: Temp Pulse Resp BP Pulse Ox 97.8 F 93 H 16 134/73 97 12/28/18 04:00 12/28/18 04:00 12/28/18 04:00 12/28/18 04:00 12/28/18 04:00 Narrative: Pleasant, alert, talkative, eating breakfast well. No scleral icterus. No jaundice. Lungs clear. Heart rate regular. Abdomen soft and nontender. No edema or clubbing. Neurologically intact, moving all extremities well. Results Labs on day of discharge: Labs from last 24 hours 12/28/18 12/28/18 12/27/18 06:40 06:40 06:55 WBC 5.7 RBC 3.71 L Hgb 10.1 L Hct 31.4 L MCV 84.8 MCH 27.2 MCHC 32.0 RDW 15.3 Plt Count 195 MPV 8.4 Neut % (Auto) 60.4 Lymph % (Auto) 28.7 [place] % (Auto) 7.8 Eos % (Auto) 2.9 Baso % (Auto) 0.2 Neut # (Auto) 3.4 Lymph # (Auto) 1.6 [place] # (Auto) 0.4 Eos # (Auto) 0.2 Baso # (Auto) 0.0 Sodium 146 H 143 Potassium 4.6 D 3.1 L Chloride 112 H 106 Carbon Dioxide 24 25 Anion Gap 14.6 15.1 H BUN 11 13 Creatinine 1.70 H 1.93 H Estimated Creat Clear 33 29 Estimated GFR 29 L 25 L Est GFR ( Amer) 36 L 31 L Glucose 129 H 120 H Calcium 8.0 L 8.3 L Total Bilirubin 0.4 AST 16 D ALT 18 D Alkaline Phosphatase 83 Total Protein 5.6 L D Albumin 2.7 L Globulin 2.9 Albumin/Globulin Ratio 0.9 L DS: Diagnosis - Discharge Diagnosis (1) ARIES (acute kidney injury) Status: Resolved (2) Digoxin toxicity Status: Resolved (3) Cardiomyopathy Status: Chronic (4) Dehydration Status: Resolved (5) Nausea with vomiting Status: Resolved (6) Diarrhea Status: Resolved (7) Chronic systolic heart failure Status: Chronic (8) Ischemic cardiomyopathy Status: Chronic (9) C. difficile colitis Status: Acute Discharge Plan - Patient Discharge Instructions ACTIVITY: Continue current activity DIET: low fat, low cholesterol Patient Instructions: DI for Dehydration -- Adult, DI for Antibiotic -- associated Colitis -- C difficile, DI for Viral Gastroenteritis -- Adult, DI for Nausea -- Adult, DI for Vomiting -- Adult - Follow up Plan Follow up with: David Lewis MD [Primary Care Provider] - 12/30/18 9:00 am Disposition: Home, [facility] Medications: Home Medications Medication Instructions Recorded Confirmed Type aspirin 81 mg tablet,delayed 81 mg PO HS 12/03/17 12/26/18 History release fluticasone 50 mcg/actuation nasal 1 spray INTRANASAL DAILY 09/24/18 12/25/18 History spray,suspension levothyroxine 50 mcg capsule 50 mcg PO DAILY cap 11/06/18 12/26/18 History Albuterol Sulfate [Proventil-HFA 1 - 2 puffs IH Q6HP PRN 12/01/18 12/25/18 History 90mcg/puff Inh] Atorvastatin Calcium [Lipitor 40mg 40 mg PO DAILY 12/01/18 12/26/18 History Tablet] Carvedilol [Carvedilol 12.5mg Tab] 12.5 mg PO BID 12/01/18 12/25/18 History Digoxin 0.125 mg PO DAILY 12/01/18 12/25/18 History Fluoxetine HCl [Prozac] 20 mg PO DAILY 12/01/18 12/26/18 History Furosemide [Furosemide 20mg Tab] 40 mg PO BID 12/01/18 12/26/18 History Losartan Potassium 100 mg PO DAILY 12/01/18 12/25/18 History Omeprazole [Omeprazole 20mg 20 mg PO BID 12/01/18 12/25/18 History Capsule] Ropinirole HCl [Requip] 1 mg PO HS 12/01/18 12/26/18 History Spironolactone 25 mg PO BID 12/26/18 12/26/18 History Ticagrelor [Brilinta 90mg Tablet] 90 mg PO BID 12/26/18 12/26/18 History Vancomycin HCl 250 mg PO TID #21 capsule 12/28/18 Rx metroNIDAZOLE [Flagyl 250mg 250 mg PO TID #21 tab 12/28/18 Rx Tablet] Prescriptions/Medication Reconciliation: New Vancomycin HCl 250 mg PO TID #21 capsule metroNIDAZOLE [Flagyl 250mg Tablet] 250 mg PO TID #21 tab Continue aspirin 81 mg tablet,delayed release 81 mg PO HS levothyroxine 50 mcg capsule 50 mcg PO DAILY cap fluticasone 50 mcg/actuation nasal spray,suspension 1 spray INTRANASAL DAILY Albuterol Sulfate [Proventil-HFA 90mcg/puff Inh] 1 - 2 puffs IH Q6HP PRN PRN Reason: SOA Ropinirole HCl [Requip] 1 mg PO HS Losartan Potassium 100 mg PO DAILY Fluoxetine HCl [Prozac] 20 mg PO DAILY Carvedilol [Carvedilol 12.5mg Tab] 12.5 mg PO BID Atorvastatin Calcium [Lipitor 40mg Tablet] 40 mg PO DAILY Ticagrelor [Brilinta 90mg Tablet] 90 mg PO BID Omeprazole [Omeprazole 20mg Capsule] 20 mg PO BID Discontinued Digoxin 0.125 mg PO DAILY Furosemide [Furosemide 20mg Tab] 40 mg PO BID Spironolactone 25 mg PO BID
== END 2018-12-28 09:25 | disposition home or self-care (01) | DRG 372 ==
LOC: ER 14:01 → 2ND 14:01
PROVIDERS: ADMIT Internal Medicine Adolescent Medicine; ATTEND Internal Medicine Adolescent Medicine
CPT/HCPCS: 36415; 80048; 80053; 80162; 82962; 84484; 85025; 87507; 96365; 96366; 96375; 96376; 99284; G0378; J2405; J3370

== ENCOUNTER 2019-01-01 16:41 | Inpatient (IN) ==
[2019-01-01 17:18] LABS: Basophils % 0.4 % (0.1-2.0); Eosinophils # 0.2 K/mm3 (0.0-0.4); Eosinophils % 1.8 % (0.1-12.0); Hematocrit 33.7 % (37.0-47.0); Lymphocytes # 1.1 K/mm3 (0.7-4.5); Lymphocytes % 10.3 % (10-50); Mean Corpuscular HGB Conc 32.6 g/dL (31.8-35.4); Mean Corpuscular Hemoglobin 27.4 pg (27.0-31.2); Mean Corpuscular Volume 83.9 fl (81-99); Mean Platelet Volume 8.1 fl (7.4-10.4); Monocytes # 0.4 K/mm3 (0.1-1.0); Monocytes % 4.3 % (1.7-9.3); Neutrophils # 8.5 K/mm3 (1.8-7.8); Neutrophils % 83.2 % (37.0-80.0); Platelet Count 267 K/mm3 (142-424); Red Blood Count 4.01 M/mm3 (4.20-5.40); Red Cell Distribution Width 15.6 % (11.5-17.5); White Blood Count 10.3 K/mm3 (4.8-10.8)
[2019-01-01 17:30] LABS: Albumin Level 3.1 gm/dL (3.4-5.0); Albumin/Globulin Ratio 0.9 (1.1-1.8); Anion Gap 17.7 mEq/L (5-15); Bilirubin,Total 0.6 mg/dL (0.2-1.0); Calcium 8.1 mg/dL (8.5-10.1); Globulin 3.6 gm/dl (1.3-3.2); Potassium 4.7 mmoL/L (3.5-5.1); Total Protein,Serum 6.7 gm/dL (6.4-8.2)
--- NOTE | 2019-01-01 17:36 | Emergency Department Note ---
ED Disposition Clinical Impression: Influenza A, Nausea, Fatigue, Acute renal failure Disposition: Admitted As Inpatient Condition on Discharge: Good Referrals: David Lewis MD [Primary Care Provider] - Time of Disposition: 17:50 - Critical Care Critical Care Time: No Attestation: On 01/01/19, the high probability of a clinically significant, sudden or life threatening deterioration of the following system(s) required my full and direct attention, intervention and personal management. The time I documented below is in addition to time spent performing reported procedures but includes the following listed in this critical care notation. Medical Decision Making - Medical Records Medical records reviewed: Yes: I reviewed the patient's medical records. - [place] Inquiry Pt receiving controlled substance: No [place] was queried for this patient: No Vital Signs: 01/01/19 16:42 01/01/19 17:18 Temperature 98.4 F Temperature Source Oral Pulse Rate [Right Radial] 107 H 96 H Respiratory Rate 22 Blood Pressure [Right Arm] 143/82 H 123/79 Blood Pressure Mean [Right Arm] 102 93 Blood Pressure Source [Right Arm] Automatic Cuff Automatic Cuff Blood Pressure Position [Right Arm] Sitting Sitting 02 Sat by Pulse Oximetry 99 97 Oxygen Delivery Method Nasal Cannula Oxygen Flow Rate (LPM) 2 - Lab Data Lab Results 01/01/19 16:45: WBC 10.3, RBC 4.01 L, Hgb 11.0 L, Hct 33.7 L, MCV 83.9, MCH 27.4, MCHC 32.6, RDW 15.6, Plt Count 267, MPV 8.1, Neut % (Auto) 83.2 H, Lymph % (Auto) 10.3, [place] % (Auto) 4.3, Eos % (Auto) 1.8, Baso % (Auto) 0.4, Neut # (Auto) 8.5 H, Lymph # (Auto) 1.1, [place] # (Auto) 0.4, Eos # (Auto) 0.2, Baso # (Auto) 0.0 Result diagrams: 01/01/19 16:45 Orders (Tests/Meds): ED MEDICATIONS Generic Name Dose Route Start Last Admin Trade Name Freq PRN Reason Stop Dose Admin Sodium Chloride 10 ml 01/01/19 16:53 Saline Flush 10ml Syringe IV 01/31/19 16:52 NEEDED PRN Maintain IV Site ORDERS Category Date Time Status XR chest portable Stat Exams 01/01/19 16:51 Taken Comprehensive Metabolic Panel Stat Lab 01/01/19 16:45 Received Lactic Acid Stat Lab 01/01/19 16:45 Received Rapid Influenza A&B Antigens Stat Lab 01/01/19 16:45 Received Blood Culture Stat Micro 01/01/19 17:18 Ordered Resp/SOB HPI - General Chief Complaint: Shortness of Breath/Dyspnea Stated Complaint: shortness of breath Time Seen by Provider: 01/01/19 16:50 Mode of Arrival: EMS Limitations: No Limitations Description of Symptoms (Recalled from ER Triage Doc. by RN): pt c/o shortness of breath,coughing, and chest pain. pt had stents placed 12/19/18. - History of Present Illness MD Complaint: shortness of breath, cough Onset (ago): day(s) Context: other (flu symptoms) Consistency/Duration: constant Relieving factors: nothing Exacerbating factors: exertion, movement Treatment prior to arrival: oxygen, bronchodilator - Related Data Home oxygen amount: none Home Medications Medication Instructions Recorded Confirmed aspirin 81 mg tablet,delayed 81 mg PO HS 12/03/17 01/01/19 release fluticasone 50 mcg/actuation nasal 1 spray INTRANASAL DAILY 09/24/18 01/01/19 spray,suspension levothyroxine 50 mcg capsule 50 mcg PO DAILY cap 11/06/18 01/01/19 Albuterol Sulfate [Proventil-HFA 1 - 2 puffs IH Q6HP PRN 12/01/18 01/01/19 90mcg/puff Inh] Atorvastatin Calcium [Lipitor 40mg 40 mg PO DAILY 12/01/18 01/01/19 Tablet] Carvedilol [Carvedilol 12.5mg Tab] 12.5 mg PO BID 12/01/18 01/01/19 Fluoxetine HCl [Prozac] 20 mg PO DAILY 12/01/18 01/01/19 Losartan Potassium 100 mg PO DAILY 12/01/18 01/01/19 Ropinirole HCl [Requip] 1 mg PO HS 12/01/18 01/01/19 Ticagrelor [Brilinta 90mg Tablet] 90 mg PO BID 12/26/18 01/01/19 Vancomycin HCl 250 mg PO TID 02/07/19 02/07/19 metroNIDAZOLE [Flagyl 250mg 250 mg PO TID 01/01/19 01/01/19 Tablet] Previous Rx's Medication Instructions Recorded omeprazole 20 mg capsule,delayed 20 mg PO BID #60 cap 12/31/18 release Allergies Allergy/AdvReac Type Severity Reaction Status Date / Time Penicillins [PENICILLINS] Allergy Unknown I-HIVES Verified 01/01/19 17:04 [facility] History - Hepatitis A Screen Drug use history?: No High risk sexual behaviors?: No History of sexually transmitted infection?: No Currently employed?: No Childcare worker?: No Do you have indoor plumbing?: Yes Do you have electricity?: Yes Attestation statement:: This patient has been screened for Hepatitis A risk factors. Medical History: Reports:: Anxiety (on fluoxetine), Atherosclerotic Heart Disease, Cardiomyopathy, Congestive Heart Failure, Chronic Obstructive Pulmonary Disease (COPD), Coronary Artery Disease, Hyperlipidemia, Hypertension, Renal Insufficiency, Urinary Tract Infection Denies:: Cancer, Diabetes Mellitus Type 1, Diabetes Mellitus Type 2, MRSA Other Medical History: Reports: Arthritis, Thyroid Disease Comment: NADIA Laterality Cases: Left: Other Other Surgeries: Yes: No Previous Surgery, Appendectomy, Cardiac Catheterization, Cholecystectomy, Coronary Stent, , Other (back surgery) Amputation: No Fractures: No - Social History Smoking Status: Never smoker Alcohol Intake: never Alcohol Intake Frequency:: other Substance Use Type: denies use Occupational Status: retired Housing: house Household Members: spouse - Psychiatric History Expresses thoughts of harming self/others: None Suicide Plan Description: No Plan Pschychiatric History:: Reports:: Anxiety (on fluoxetine) Family Hx:: No significant family history ROS Obtained: Yes All systems reviewed & no additional complaints - Constitutional Constitutional: Reports system reviewed and no additional complaints, except as docu, Denies chills, Reports lethargy, Reports weakness - Eyes Eyes: Reports system reviewed and no additional complaints, except as docu, Denies change in vision - ENT Ears, Nose, Mouth, and Throat: Reports system reviewed and no additional complaints, except as docu, Denies sore throat, Denies throat swelling - Cardiovascular Cardiovascular: Reports system reviewed and no additional complaints, except as docu, Denies rapid heart rate, Denies slow heart rate - Respiratory Respiratory: Yes system reviewed and no additional complaints, except as docu, No chest congestion, No cough, No non-productive cough, Yes dyspnea, Yes dyspnea on exertion, Yes excessive phlegm production, No coughing up blood, No pain on inspiration, Yes pain with cough, Yes wheezing - Gastrointestinal Gastrointestingal: Reports: system reviewed and no additional complaints, except as docu, nausea, vomiting, other (states she's vomiting phlegm.). Denies: abdominal pain, diarrhea - Musculoskeletal Musculoskeletal: Reports system reviewed and no additional complaints, except as docu, Reports joint pain, Reports joint stiffness, Reports joint swelling, Reports limited range of motion, Denies muscle weakness, Reports stiffness, Reports tingling - Integumentary/Breasts Skin/Breast: Reports system reviewed and no additional complaints, except as docu, Reports rash, Reports skin pain Physical Exam - General General appearance: alert, in no apparent distress - Head Head exam: atraumatic, normocephalic, normal inspection - Eye Eye exam: Present: normal appearance - ENT ENT exam: Present: normal exam - Neck Neck exam: Present: normal inspection, full ROM, trachea midline. Absent: meningismus, lymphadenopathy - Chest Chest inspection: Present: normal inspection, symmetric chest wall rise. Absent: tenderness - Respiratory Respiratory exam: Present: normal lung sounds bilaterally. Absent: respiratory distress - Cardiovascular Cardiovascular exam: Present: regular rate, normal rhythm. Absent: JVD - Abdominal Exam Abdominal exam: Present: soft. Absent: distention, tenderness, guarding, rebound, rigidity - Expanded Lower Extremity Exam Right Foot/toe exam: Present: tenderness, swelling, erythema, tenderness at base of 5th metatarsal, other (consistent with gout). Absent: normal inspection, full ROM - Back Exam Back exam: Present: normal inspection - Neurological Exam Neurological exam: Present: alert, oriented X3, CN II-XII intact
[2019-01-02 06:06] LABS: Basophils % 0.1 % (0.1-2.0); Eosinophils % 0.3 % (0.1-12.0); Hematocrit 29.7 % (37.0-47.0); Lymphocytes # 0.3 K/mm3 (0.7-4.5); Lymphocytes % 6.2 % (10-50); Mean Corpuscular HGB Conc 31.9 g/dL (31.8-35.4); Mean Corpuscular Hemoglobin 27.1 pg (27.0-31.2); Mean Corpuscular Volume 85.1 fl (81-99); Mean Platelet Volume 8.1 fl (7.4-10.4); Monocytes # 0.2 K/mm3 (0.1-1.0); Monocytes % 2.9 % (1.7-9.3); Neutrophils # 4.8 K/mm3 (1.8-7.8); Neutrophils % 90.5 % (37.0-80.0); Platelet Count 208 K/mm3 (142-424); Red Blood Count 3.49 M/mm3 (4.20-5.40); Red Cell Distribution Width 15.7 % (11.5-17.5); White Blood Count 5.3 K/mm3 (4.8-10.8)
[2019-01-02 06:10] LABS: Anion Gap 14.7 mEq/L (5-15); Potassium 4.7 mmoL/L (3.5-5.1)
[2019-01-02 07:19] LABS: Lymphocytes % 5 % (10-50); Monocytes % 3 % (2-9); Neutrophils % 92 % (42-76); Total Cells Counted 100
[2019-01-02 07:20] LABS: RBC Morphology Normal
[2019-01-02 07:42] LABS: Hemoglobin 9.6 g/dL (12.2-16.2)
--- NOTE | 2019-01-02 08:48 | History & Physical Report ---
*Admission Date: 01/01/19 *Chief complaint: SOA, Fatigue *History of present illness: Ms. Arevalo is a pleasant 73-year-old female with an extensive past medical history over the last month. History of coronary artery disease, systolic heart failure, status post stent placement at the end of November, currently being treated for C. difficile colitis, chronic kidney disease and hypertension at baseline. She presented to the emergency room with progressive weakness, fatigue, shortness of breath. On admission was noted to have acute renal failure and flu. Additionally she is continued to have daily diarrhea with watery stools during treatment for her C. difficile colitis. Patient was admitted to medicine for treatment of her flu/respiratory failure, fluid resuscitation. Currently stable on 2 L nasal cannula, does not wear oxygen at baseline. Tolerating oral medication and regular diet. Is dyspneic on interview this morning. Appears very ill and weak. Repeat stool culture obtained. Fever, shortness of breath, nausea, diarrhea. Denies chest pain, syncope, confusion [facility] History I have reviewed the patient's past medical history: Yes Medical History: Reports:: Anxiety (on fluoxetine), Atherosclerotic Heart Disease, Cardiomyopathy, Congestive Heart Failure, Chronic Obstructive Pulmonary Disease (COPD), Coronary Artery Disease, Hyperlipidemia, Hypertension, Renal Insufficiency, Urinary Tract Infection Denies:: Cancer, Diabetes Mellitus Type 1, Diabetes Mellitus Type 2, MRSA Have you ever received a pneumonia vaccine?: Yes Have you received a flu vaccine this season?: Yes Other Medical History: Reports: Arthritis, Thyroid Disease Laterality Cases: Left: Other Other Surgeries: Yes: No Previous Surgery, Appendectomy, Cardiac Catheterization, Cholecystectomy, Coronary Stent, , Other (back surgery) Amputation: No Fractures: No - *Social History Educational Level: Attended High School Smoking Status: Never smoker Alcohol Intake: never Alcohol Intake Frequency:: other Substance Use Type: denies use Occupational Status: retired Housing: house Household Members: spouse Travel in the last 8 weeks: None - Psychiatric History Expresses thoughts of harming self/others: None Suicide Plan Description: No Plan Pschychiatric History:: Reports:: Anxiety (on fluoxetine) Family Hx:: No significant family history Review of Systems - Review of Systems Review of systems:: pertinent systems reviewed and negative unless documented below - *Neurologic Reports tingling, Reports weakness Meds Home Medications Medication Instructions Recorded Confirmed Type aspirin 81 mg tablet,delayed 81 mg PO HS 12/03/17 01/01/19 History release fluticasone 50 mcg/actuation nasal 1 spray INTRANASAL DAILY 09/24/18 01/01/19 History spray,suspension levothyroxine 50 mcg capsule 50 mcg PO DAILY cap 11/06/18 01/01/19 History Albuterol Sulfate [Proventil-HFA 1 - 2 puffs IH Q6HP PRN 12/01/18 01/01/19 History 90mcg/puff Inh] Atorvastatin Calcium [Lipitor 40mg 40 mg PO DAILY 12/01/18 01/01/19 History Tablet] Carvedilol [Carvedilol 12.5mg Tab] 12.5 mg PO BID 12/01/18 01/01/19 History Fluoxetine HCl [Prozac] 20 mg PO DAILY 12/01/18 01/01/19 History Losartan Potassium 100 mg PO DAILY 12/01/18 01/01/19 History Ropinirole HCl [Requip] 1 mg PO HS 12/01/18 01/01/19 History Ticagrelor [Brilinta 90mg Tablet] 90 mg PO BID 12/26/18 01/01/19 History omeprazole 20 mg capsule,delayed 20 mg PO BID #60 cap 12/31/18 01/01/19 Rx release Vancomycin HCl 250 mg PO TID 01/01/19 01/01/19 History metroNIDAZOLE [Flagyl 250mg 250 mg PO TID 01/01/19 01/01/19 History Tablet] Allergies Allergy/AdvReac Type Severity Reaction Status Date / Time Penicillins [PENICILLINS] Allergy Unknown I-HIVES Verified 01/01/19 17:04 promethazine [From Phenergan] AdvReac Intermediate Shakiness Verified 01/01/19 22:39 Exam Vital signs and Labs for Last 24 Hours: Temp Pulse Resp BP Pulse Ox 97.6 F 93 H 22 136/79 99 01/02/19 08:00 01/02/19 08:00 01/02/19 08:00 01/02/19 08:00 01/02/19 08:00 Laboratory Results - last 24 hr 01/01/19 16:45: WBC 10.3, RBC 4.01 L, Hgb 11.0 L, Hct 33.7 L, MCV 83.9, MCH 27.4, MCHC 32.6, RDW 15.6, Plt Count 267, MPV 8.1, Neut % (Auto) 83.2 H, Lymph % (Auto) 10.3, [place] % (Auto) 4.3, Eos % (Auto) 1.8, Baso % (Auto) 0.4, Neut # (Auto) 8.5 H, Lymph # (Auto) 1.1, [place] # (Auto) 0.4, Eos # (Auto) 0.2, Baso # (Auto) 0.0 01/01/19 16:45: Sodium 139, Potassium 4.7, Chloride 103, Carbon Dioxide 23, Anion Gap 17.7 H, BUN 27 H, Creatinine 4.31 H, Estimated Creat Clear 13, Estimated GFR 10 L*, Est GFR ( Amer) 12 L*, Glucose 147 H, Calcium 8.1 L, Total Bilirubin 0.6, AST 14 L, ALT 18, Alkaline Phosphatase 104, Total Protein 6.7, Albumin 3.1 L, Globulin 3.6 H, Albumin/Globulin Ratio 0.9 L 01/01/19 16:45: Lactate 0.9 01/01/19 16:45: Influenza Type A Ag Positive A, Influenza Type B Ag Negative 01/01/19 18:14: Digoxin 1.00 01/02/19 05:51: WBC 5.3 D, RBC 3.49 L, Hgb 9.6 L D, Hct 29.7 L, MCV 85.1, MCH 27.1, MCHC 31.9, RDW 15.7, Plt Count 208, MPV 8.1, Neut % (Auto) 90.5 H, Lymph % (Auto) 6.2 L, [place] % (Auto) 2.9, Eos % (Auto) 0.3, Baso % (Auto) 0.1, Neut # (Auto) 4.8, Lymph # (Auto) 0.3 L, [place] # (Auto) 0.2, Eos # (Auto) 0.0, Baso # (Auto) 0.0, Total Counted 100, Neutrophils % (Manual) 92 H, Lymphocytes % (Manual) 5 L, Monocytes % (Manual) 3, Platelet Estimate Normal, RBC Morphology Normal 01/02/19 05:51: Sodium 139, Potassium 4.7, Chloride 108 H, Carbon Dioxide 21, Anion Gap 14.7, BUN 29 H, Creatinine 4.15 H, Estimated Creat Clear 14, Estimated GFR 11 L*, Est GFR ( Amer) 13 L*, Glucose 168 H, Calcium 7.0 L D I & O for Last 24 hours: Intake & Output 12/30/18 12/31/18 01/01/19 01/02/19 23:59 23:59 23:59 23:59 Intake Total 400 / 400 480 / 480 Balance 400 / 400 480 / 480 Weight 74.191 kg - Constitutional mild distress, obese, chronically ill appearing - *Routine HEENT Exam Head: Present: normocephalic, atraumatic Eye: Present: EOMI, PERRL ENT: Present: mucous membranes moist - *Routine Neck Exam Present: supple, full ROM. Absent: JVD - *Routine Respiratory Exam Present: accessory muscle use, prolonged expiratory phase, wheezes. Absent: rales, crackles - *Routine Cardiovascular Exam Present: RRR, Normal S1. Absent: murmur - *Routine Abdominal Exam Present: soft, normoactive bowel sounds, tenderness (Left lower quadrant) - *Routine Rectal Exam Patient deferred: visual exam - *Routine Exam Patient deferred: external exam - *Routine Extremities Exam Present: edema (Trace). Absent: cyanosis, clubbing - *Routine Skin Exam Present: intact. Absent: cyanosis, erythema - *Routine Neurological Exam Present: alert, oriented X3. Absent: altered mental status Assessment and Plan (1) Acute renal failure Current visit: Yes Status: Acute Category: Medical Code(s): N17.9 - Acute kidney failure, unspecified Baseline creatinine around 1.4-1.8. Significantly elevated on presentation, liver BUN/creatinine ratio suggests intrinsic component. Responding to fluids with mild decrease noted on labs this morning (2) Influenza A Current visit: Yes Status: Acute Category: Medical Code(s): J10.1 - Influenza due to other identified influenza virus with other respiratory manifestations Initiate Tamiflu, renally dosed. Continue for a full 5-day course. (3) Nausea Current visit: Yes Status: Acute Category: Medical Code(s): R11.0 - Nausea (4) C. difficile colitis Current visit: No Status: Acute Category: Medical Code(s): A04.72 - Enterocolitis due to Clostridium difficile, not specified as recurrent Continue vancomycin and Flagyl. Review duration of therapy pending improvement during hospitalization. Repeat stool culture ordered to assess presence on admission (5) CAD (coronary artery disease) Current visit: No Status: Chronic Qualifiers: Coronary Disease-Associated Artery/Lesion type: [place] artery [place] vs. transplanted heart: [place] heart Associated angina: with stable angina Qualified Code(s): I25.118 - Atherosclerotic heart disease of [place] coronary artery with other forms of angina pectoris Category: Medical Code(s): I25.10 - Atherosclerotic heart disease of [place] coronary artery without angina pectoris (6) Chronic systolic heart failure Current visit: No Status: Chronic Category: Medical Code(s): I50.22 - Chronic systolic (congestive) heart failure Continue home medications, hold losartan in the setting of acute renal failure. Monitor blood pressure. (7) Dehydration Current visit: No Status: Acute Category: Medical Code(s): E86.0 - Dehydration IV fluids as ordered. Strict I's and O's (8) Acute hypoxemic respiratory failure Current visit: Yes Status: Acute Category: Medical Code(s): J96.01 - Acute respiratory failure with hypoxia Secondary to the flu. No concern for pneumonia at this time. Holding on antibiotics. Continue breathing treatments and antiviral medications. Supplemental oxygen as needed with goal greater than 92 while awake, greater than 88 while asleep.
--- NOTE | 2019-01-02 10:04 | Pharmacy Consult Notes ---
[facility] Pharmacy VTE Monitoring - Patient Demographics Admission date: 01/01/19 Report Date: 01/02/19 Time: 10:04 Allergies/Adverse Reactions: Patient Allergies Penicillins [PENICILLINS] Allergy (Unknown, Verified 01/01/19 17:04) I-HIVES promethazine [From Phenergan] Adverse Reaction (Intermediate, Verified 01/01/19 22:39) Shakiness Height: 1.55 m Weight: 74.191 kg Patient Problems: Current Active Problems Nausea (Acute) Influenza A (Acute) Acute renal failure (Acute) Fatigue (Acute) - VTE Risk Labs: VTE Related Lab Results Hgb 9.6 g/dL (12.2-16.2) L D 01/02/19 05:51 Hct 29.7 % (37.0-47.0) L 01/02/19 05:51 Plt Count 208 K/mm3 (142-424) 01/02/19 05:51 BUN 29 mg/dL (7-18) H 01/02/19 05:51 Creatinine 4.15 mg/dL (0.55-1.02) H 01/02/19 05:51 Estimated Creat Clear 14 mL/min (50-200) 01/02/19 05:51 Was VTE Risk Assessment Performed: Yes VTE Score: 3 VTE Risk Level: Low Risk - Prophylaxis VTE Prophylaxis Ordered?: Yes Types of VTE Prophylaxis: TEDS Knee High Location of Applied Device: Bilateral Lower Extremeties
[2019-01-02 18:14] LABS: Anion Gap 16.7 mEq/L (5-15); Calcium 7.1 mg/dL (8.5-10.1); Potassium 4.7 mmoL/L (3.5-5.1)
[2019-01-03 05:24] LABS: Basophils % 0.1 % (0.1-2.0); Eosinophils # 0.1 K/mm3 (0.0-0.4); Eosinophils % 0.8 % (0.1-12.0); Hemoglobin 9.6 g/dL (12.2-16.2); Lymphocytes # 0.4 K/mm3 (0.7-4.5); Lymphocytes % 4.7 % (10-50); Mean Corpuscular HGB Conc 32.6 g/dL (31.8-35.4); Mean Corpuscular Hemoglobin 27.5 pg (27.0-31.2); Mean Corpuscular Volume 84.2 fl (81-99); Mean Platelet Volume 8.4 fl (7.4-10.4); Monocytes # 0.3 K/mm3 (0.1-1.0); Neutrophils # 7.6 K/mm3 (1.8-7.8); Neutrophils % 91.4 % (37.0-80.0); Platelet Count 247 K/mm3 (142-424); Red Blood Count 3.49 M/mm3 (4.20-5.40); Red Cell Distribution Width 15.7 % (11.5-17.5); White Blood Count 8.3 K/mm3 (4.8-10.8)
[2019-01-03 05:27] LABS: Hematocrit 29.4 % (37.0-47.0)
[2019-01-03 05:36] LABS: Albumin Level 2.5 gm/dL (3.4-5.0); Albumin/Globulin Ratio 0.8 (1.1-1.8); Anion Gap 17.9 mEq/L (5-15); Bilirubin,Total 0.2 mg/dL (0.2-1.0); Globulin 3.2 gm/dl (1.3-3.2); Potassium 4.9 mmoL/L (3.5-5.1); Total Protein,Serum 5.7 gm/dL (6.4-8.2)
[2019-01-03 05:40] LABS: Calcium 6.9 mg/dL (8.5-10.1)
[2019-01-03 06:32] LABS: Lymphocytes % 5 % (10-50); Neutrophils % 89 % (42-76); RBC Morphology Normal; Rouleaux 1+; Total Cells Counted 100
--- NOTE | 2019-01-03 15:48 | Progress Note ---
Internal Medicine - PN: Subj *Date: 01/03/19 *Time: 08:30 Interval history: Ms. Sol states feeling better after day recess night. Tolerating good p.o. intake, well. Still feels a little wheezy but denies. Afebrile. Denies any nausea, vomiting, chest pain. Said she felt better with her urine output and felt hopeful however no improved kidney function on labs this morning. Exam Vital signs and Labs for Last 24 Hours: Temp Pulse Resp BP Pulse Ox 98.1 F 56 L 24 138/68 95 01/03/19 08:23 01/03/19 08:23 01/03/19 08:23 01/03/19 08:23 01/03/19 08:23 Laboratory Results - last 24 hr 01/02/19 18:00: Sodium 139, Potassium 4.7, Chloride 107, Carbon Dioxide 20 L, Anion Gap 16.7 H, BUN 36 H, Creatinine 4.34 H, Estimated Creat Clear 14, Estimated GFR 10 L*, Est GFR ( Amer) 12 L*, Glucose 206 H D, Calcium 7.1 L 01/03/19 05:00: WBC 8.3 D, RBC 3.49 L, Hgb 9.6 L, Hct 29.4 L, MCV 84.2, MCH 27.5, MCHC 32.6, RDW 15.7, Plt Count 247, MPV 8.4, Neut % (Auto) 91.4 H, Lymph % (Auto) 4.7 L, [place] % (Auto) 3.0, Eos % (Auto) 0.8, Baso % (Auto) 0.1, Neut # (Auto) 7.6, Lymph # (Auto) 0.4 L, [place] # (Auto) 0.3, Eos # (Auto) 0.1, Baso # (Auto) 0.0, Total Counted 100, Neutrophils % (Manual) 89 H, Band Neutrophils % 6.0, Lymphocytes % (Manual) 5 L, Platelet Estimate Normal, RBC Morphology Normal, [place] 1+ 01/03/19 05:00: Sodium 139, Potassium 4.9, Chloride 107, Carbon Dioxide 19 L, Anion Gap 17.9 H, BUN 40 H, Creatinine 4.36 H, Estimated Creat Clear 13, Estimat ed GFR 10 L*, Est GFR ( Amer) 12 L*, Glucose 223 H, Calcium 6.9 L, Total Bilirubin 0.2, AST 13 L, ALT 17, Alkaline Phosphatase 86, Total Protein 5.7 L, Albumin 2.5 L, Globulin 3.2, Albumin/Globulin Ratio 0.8 L 01/03/19 05:00: Phosphorus 4.1 I & O for Last 24 hours: Intake & Output 12/31/18 01/01/19 01/02/19 01/03/19 23:59 23:59 23:59 23:59 Intake Total 400 / 400 1200 / 1200 600 / 600 Output Total 200 / 200 1300 / 1300 Balance 400 / 400 1000 / 1000 -700 / -700 Weight 74.191 kg 74.191 kg Microbiology Reports for the Last 24 Hours: Microbiology 01/02/19 08:30 Sputum - Expectorated Sputum Gram Stain - Final 01/02/19 08:30 Sputum - Expectorated Sputum Sputum Culture - Preliminary Narrative: - Constitutional Minimal distress, obese, chronically ill appearing - *Routine HEENT Exam Head: Present: normocephalic, atraumatic Eye: Present: EOMI, PERRL ENT: Present: mucous membranes moist - *Routine Neck Exam Present: supple, full ROM. JVD to angle of mandible - *Routine Respiratory Exam Present: Interval improvement in respiration, persistent wheezing. Absent: rale s, crackles - *Routine Cardiovascular Exam Present: RRR, Normal S1. Absent: murmur - *Routine Abdominal Exam Present: soft, normoactive bowel sounds, tenderness (Left lower quadrant) - *Routine Rectal Exam Patient deferred: visual exam - *Routine Exam Patient deferred: external exam - *Routine Extremities Exam Present: edema (Trace). Absent: cyanosis, clubbing - *Routine Skin Exam Present: intact. Absent: cyanosis, erythema - *Routine Neurological Exam Present: alert, oriented X3. Absent: altered mental status Assessment and Plan (1) Acute renal failure Current visit: Yes Status: Acute Category: Medical Code(s): N17.9 - Acute kidney failure, unspecified (2) Influenza A Current visit: Yes Status: Acute Category: Medical Code(s): J10.1 - Influenza due to other identified influenza virus with other respiratory manifestations (3) Nausea Current visit: Yes Status: Acute Category: Medical Code(s): R11.0 - Nausea (4) C. difficile colitis Current visit: No Status: Acute Category: Medical Code(s): A04.72 - Enterocolitis due to Clostridium difficile, not specified as recurrent (5) CAD (coronary artery disease) Current visit: No Status: Chronic Qualifiers: Coronary Disease-Associated Artery/Lesion type: [place] artery [place] vs. transplanted heart: [place] heart Associated angina: with stable angina Qual ified Code(s): I25.118 - Atherosclerotic heart disease of [place] coronary artery with other forms of angina pectoris Category: Medical Code(s): I25.10 - Atherosclerotic heart disease of [place] coronary artery without angina pectoris (6) Chronic systolic heart failure Current visit: No Status: Chronic Category: Medical Code(s): I50.22 - Chronic systolic (congestive) heart failure (7) Dehydration Current visit: No Status: Acute Category: Medical Code(s): E86.0 - Dehydration (8) Acute hypoxemic respiratory failure Current visit: Yes Status: Acute Category: Medical Code(s): J96.01 - Acute respiratory failure with hypoxia - Assessment and plan all Dx Assessment and Plan for all problems:: Patient having interval improvement in symptoms. Feeling better. Continue treatment for flu and pneumonia. Change in course with discontinuation of IV fluids. Re-diurese again today given presence of JVD.. Repeat labs this evening and in the morning. Electrolytes otherwise remained stable. Still having unclear etiology at this time for her kidney failure however given stable creatinine, suspecting she may have a component of ATN. Unable to assess more specifically given limitation of lab and lack of ability to do urine studies. Continue to avoid nephrotoxins in the current setting. Gnosis remains guarded. Continues to require inpatient
[2019-01-03 18:44] LABS: Anion Gap 18.5 mEq/L (5-15); Calcium 7.2 mg/dL (8.5-10.1); Potassium 4.5 mmoL/L (3.5-5.1)
[2019-01-04 06:01] LABS: Eosinophils % 0.2 % (0.1-12.0); Hemoglobin 9.8 g/dL (12.2-16.2); Lymphocytes # 0.4 K/mm3 (0.7-4.5); Lymphocytes % 3.9 % (10-50); Mean Corpuscular HGB Conc 32.9 g/dL (31.8-35.4); Mean Corpuscular Hemoglobin 27.7 pg (27.0-31.2); Mean Platelet Volume 7.7 fl (7.4-10.4); Monocytes # 0.2 K/mm3 (0.1-1.0); Monocytes % 2.7 % (1.7-9.3); Neutrophils # 8.6 K/mm3 (1.8-7.8); Neutrophils % 93.2 % (37.0-80.0); Platelet Count 305 K/mm3 (142-424); Red Blood Count 3.53 M/mm3 (4.20-5.40); Red Cell Distribution Width 15.8 % (11.5-17.5); White Blood Count 9.2 K/mm3 (4.8-10.8)
[2019-01-04 06:02] LABS: Hematocrit 29.7 % (37.0-47.0)
[2019-01-04 06:22] LABS: Lymphocytes % 6 % (10-50); Monocytes % 1 % (2-9); Neutrophils % 86 % (42-76); RBC Morphology Normal; Total Cells Counted 100
[2019-01-04 06:24] LABS: Albumin Level 2.6 gm/dL (3.4-5.0); Albumin/Globulin Ratio 0.9 (1.1-1.8); Anion Gap 18.7 mEq/L (5-15); Bilirubin,Total 0.2 mg/dL (0.2-1.0); Calcium 7.2 mg/dL (8.5-10.1); Potassium 4.7 mmoL/L (3.5-5.1); Total Protein,Serum 5.6 gm/dL (6.4-8.2)
--- NOTE | 2019-01-04 11:55 | Progress Note ---
Internal Medicine - PN: Subj *Date: 01/04/19 *Time: 11:20 Interval history: No acute events overnight. She reports this morning that she feels relatively well, less cough and less shortness of breath. She reports good urine output and soft semi-formed bowel movements without gross blood. Denies pain. Appetite has been good. Exam Vital signs and Labs for Last 24 Hours: Temp Pulse Resp BP Pulse Ox 98.0 F 83 20 154/80 H 98 01/04/19 08:00 01/04/19 10:09 01/04/19 08:00 01/04/19 08:00 01/04/19 10:09 Laboratory Results - last 24 hr 01/03/19 18:20: Sodium 139, Potassium 4.5, Chloride 105, Carbon Dioxide 20 L, Anion Gap 18.5 H, BUN 43 H, Creatinine 4.46 H, Estimated Creat Clear 13, Estim ated GFR 10 L*, Est GFR ( Amer) 12 L*, Glucose 220 H, Calcium 7.2 L 01/04/19 05:30: WBC 9.2, RBC 3.53 L, Hgb 9.8 L, Hct 29.7 L, MCV 84.0, MCH 27.7, MCHC 32.9, RDW 15.8, Plt Count 305, MPV 7.7, Neut % (Auto) 93.2 H, Lymph % (Auto) 3.9 L, [place] % (Auto) 2.7, Eos % (Auto) 0.2, Baso % (Auto) 0.0 L, Neut # (Auto) 8.6 H, Lymph # (Auto) 0.4 L, [place] # (Auto) 0.2, Eos # (Auto) 0.0, Baso # (Auto) 0.0, Total Counted 100, Neutrophils % (Manual) 86 H, Band Neutrophils % 7.0, Lymphocytes % (Manual) 6 L, Monocytes % (Manual) 1 L, Platelet Estimate Normal, RBC Morphology Normal 01/04/19 05:30: Sodium 142, Potassium 4.7, Chloride 107, Carbon Dioxide 21, Anion Gap 18.7 H, BUN 47 H, Creatinine 4.20 H, Estimated Creat Clear 14, E stimated GFR 10 L*, Est GFR ( Amer) 13 L*, Glucose 196 H, Calcium 7.2 L, Total Bilirubin 0.2, AST 10 L, ALT 18, Alkaline Phosphatase 91, Total Protein 5.6 L, Albumin 2.6 L, Globulin 3.0, Albumin/Globulin Ratio 0.9 L I & O for Last 24 hours: Intake & Output 01/01/19 01/02/19 01/03/19 01/04/19 11:59 11:59 11:59 11:59 Intake Total 880 / 880 1200 / 1200 360 / 360 Output Total 1200 / 1200 1900 / 1900 Balance 880 / 880 0 / 0 -1540 / -1540 Weight 163 lb 9 oz Microbiology Reports for the Last 24 Hours: Microbiology 01/02/19 08:30 Sputum - Expectorated Sputum Gram Stain - Final 01/02/19 08:30 Sputum - Expectorated Sputum Sputum Culture - Preliminary 01/01/19 17:34 Blood Blood Culture - Preliminary NO GROWTH AFTER 48 HOURS 01/01/19 16:45 Blood Blood Culture - Preliminary NO GROWTH AFTER 48 HOURS Narrative: Pleasant female, alert and oriented x 3 with normal speech. Mucous membranes are moist and neck supple. Heart with RRR, systolic murmur, 2+ peripheral pulses. Lungs with expiratory wheezes bilaterally but no increased work of breathing. Abdomen is soft, NT/ND, BS present and normoactive. No peripheral edema. Moves all extremities. Assessment and Plan (1) Acute renal failure Current visit: Yes Status: Acute Category: Medical Code(s): N17.9 - Acute kidney failure, unspecified (2) Influenza A Current visit: Yes Status: Acute Category: Medical Code(s): J10.1 - Influenza due to other identified influenza virus with other respiratory manifestations (3) Nausea Current visit: Yes Status: Acute Category: Medical Code(s): R11.0 - Nausea (4) C. difficile colitis Current visit: No Status: Acute Category: Medical Code(s): A04.72 - Enterocolitis due to Clostridium difficile, not specified as recurrent (5) CAD (coronary artery disease) Current visit: No Status: Chronic Qualifiers: Coronary Disease-Associated Artery/Lesion type: [place] artery [place] vs. transplanted heart: [place] heart Associated angina: with stable angina Qualified Code(s): I25.118 - Atherosclerotic heart disease of [place] coronary artery with other forms of angina pectoris Category: Medical Code(s): I25.10 - Atherosclerotic heart disease of [place] coronary artery without angina pectoris (6) Chronic systolic heart failure Current visit: No Status: Chronic Category: Medical Code(s): I50.22 - Chronic systolic (congestive) heart failure (7) Dehydration Current visit: No Status: Acute Category: Medical Code(s): E86.0 - Dehydration (8) Acute hypoxemic respiratory failure Current visit: Yes Status: Acute Category: Medical Code(s): J96.01 - Acute respiratory failure with hypoxia - Assessment and plan all Dx Assessment and Plan for all problems:: No changes to current therapy today. Labs are stable to just slightly improved with creatinine trending down from 4.46 on 01/03/19 to 4.20 this morning. Good urine output and stable electrolytes. Repeat AM labs tomorrow and will also consult PT. She has had 2 recent acute care admissions and has related deconditioning. May need placement for rehabilitation and she is agreeable to this at [facility] if indicated and if they have a bed available later this week.
[2019-01-05 06:26] LABS: Basophils % 0.1 % (0.1-2.0); Eosinophils % 0.4 % (0.1-12.0); Hemoglobin 9.7 g/dL (12.2-16.2); Lymphocytes # 0.4 K/mm3 (0.7-4.5); Lymphocytes % 3.8 % (10-50); Mean Corpuscular HGB Conc 32.6 g/dL (31.8-35.4); Mean Corpuscular Volume 82.9 fl (81-99); Mean Platelet Volume 7.9 fl (7.4-10.4); Monocytes # 0.3 K/mm3 (0.1-1.0); Monocytes % 2.7 % (1.7-9.3); Neutrophils # 8.9 K/mm3 (1.8-7.8); Platelet Count 312 K/mm3 (142-424); Red Blood Count 3.61 M/mm3 (4.20-5.40); Red Cell Distribution Width 15.5 % (11.5-17.5); White Blood Count 9.6 K/mm3 (4.8-10.8)
[2019-01-05 06:33] LABS: Anion Gap 19.4 mEq/L (5-15); Potassium 4.4 mmoL/L (3.5-5.1)
[2019-01-05 06:46] LABS: Calcium 6.7 mg/dL (8.5-10.1)
--- NOTE | 2019-01-05 08:09 | Progress Note ---
Internal Medicine - PN: Subj *Date: 01/05/19 *Time: 08:08 Interval history: Patient feels much better. On the side of the bed. Alert, oriented x3. Exam Vital signs and Labs for Last 24 Hours: Temp Pulse Resp BP Pulse Ox 98.3 F 78 24 127/67 94 L 01/05/19 04:00 01/05/19 05:55 01/05/19 04:00 01/05/19 04:00 01/05/19 05:55 Laboratory Results - last 24 hr 01/05/19 05:32: WBC 9.6, RBC 3.61 L, Hgb 9.7 L, Hct 30.0 L, MCV 82.9, MCH 27.0, MCHC 32.6, RDW 15.5, Plt Count 312, MPV 7.9, Neut % (Auto) 93.0 H, Lymph % (Auto) 3.8 L, [place] % (Auto) 2.7, Eos % (Auto) 0.4, Baso % (Auto) 0.1, Neut # (Auto) 8.9 H, Lymph # (Auto) 0.4 L, [place] # (Auto) 0.3, Eos # (Auto) 0.0, Baso # (Auto) 0.0 01/05/19 05:32: Sodium 142, Potassium 4.4, Chloride 106, Carbon Dioxide 21, Anion Gap 19.4 H, BUN 56 H, Creatinine 3.77 H, Estimated Creat Clear 16, Estimated GFR 12 L*, Est GFR ( Amer) 14 L*, Glucose 181 H, Calcium 6.7 L I & O for Last 24 hours: Intake & Output 01/02/19 01/03/19 01/04/19 01/05/19 11:59 11:59 11:59 11:59 Intake Total 880 / 880 1200 / 1200 360 / 360 4103 / 4103 Output Total 1200 / 1200 1900 / 1900 1450 / 1450 Balance 880 / 880 0 / 0 -1540 / -1540 2653 / 2653 Weight 163 lb 9 oz 170 lb 6 oz Microbiology Reports for the Last 24 Hours: Microbiology 01/02/19 08:30 Sputum - Expectorated Sputum - Final Not Reportable 01/02/19 08:30 Sputum - Expectorated Sputum - Final Not Reportable 01/02/19 08:30 Sputum - Expectorated Sputum - Final Not Reportable 01/02/19 08:30 Sputum - Expectorated Sputum - Final Not Reportable 01/02/19 08:30 Sputum - Expectorated Sputum - Final Not Reportable 01/02/19 08:30 Sputum - Expectorated Sputum Gram Stain - Final 01/02/19 08:30 Sputum - Expectorated Sputum Sputum Culture - Final Gram Positive Bacilli Narrative: Lungs have scattered rhonchi but otherwise good air movement. Much brighter than admission. Oropharynx clear. No JVD. No edema. Heart rate regular. Assessment and Plan (1) Acute renal failure Current visit: Yes Status: Acute Category: Medical Code(s): N17.9 - Acute kidney failure, unspecified (2) Influenza A Current visit: Yes Status: Acute Category: Medical Code(s): J10.1 - Influenza due to other identified influenza virus with other respiratory [place] (3) Nausea Current visit: Yes Status: Acute Category: Medical Code(s): R11.0 - Nausea (4) C. difficile colitis Current visit: No Status: Acute Category: Medical Code(s): A04.72 - Enterocolitis due to Clostridium difficile, not specified as recurrent (5) CAD (coronary artery disease) Current visit: No Status: Chronic Qualifiers: Coronary Disease-Associated Artery/Lesion type: [place] artery [place] vs. transplanted heart: [place] heart Associated angina: with stable angina Qualified Code(s): I25.118 - Atherosclerotic heart disease of [place] coronary artery with other forms of angina pectoris Category: Medical Code(s): I25.10 - Atherosclerotic heart disease of [place] coronary artery without angina pectoris (6) Chronic systolic heart failure Current visit: No Status: Chronic Category: Medical Code(s): I50.22 - Chronic systolic (congestive) heart failure (7) Dehydration Current visit: No Status: Acute Category: Medical Code(s): E86.0 - Dehydration (8) Acute hypoxemic respiratory failure Current visit: Yes Status: Acute Category: Medical Code(s): J96.01 - Acute respiratory failure with hypoxia - Assessment and plan all Dx Assessment and Plan for all problems:: Conditions are improving. Creatinine is improved this morning by a full point. Down to 3.2. Lungs have improved as well. Plan to assess functional status with PT/OT evaluation. Possible discharge with home health versus short-term skilled care.
[2019-01-05 08:23] LABS: Lymphocytes % 1 % (10-50); Monocytes % 2 % (2-9); Neutrophils % 96 % (42-76); RBC Morphology Normal; Total Cells Counted 100
--- NOTE | 2019-01-05 09:59 | Progress Note ---
Internal Medicine - PN: Subj *Date: 01/05/19 *Time: 09:59 Exam Vital signs and Labs for Last 24 Hours: Temp Pulse Resp BP Pulse Ox 97.8 F 91 H 20 130/70 96 01/05/19 08:00 01/05/19 09:53 01/05/19 08:00 01/05/19 08:00 01/05/19 08:00 Laboratory Results - last 24 hr 01/05/19 05:32: WBC 9.6, RBC 3.61 L, Hgb 9.7 L, Hct 30.0 L, MCV 82.9, MCH 27.0, MCHC 32.6, RDW 15.5, Plt Count 312, MPV 7.9, Neut % (Auto) 93.0 H, Lymph % (Auto) 3.8 L, [place] % (Auto) 2.7, Eos % (Auto) 0.4, Baso % (Auto) 0.1, Neut # (Auto) 8.9 H, Lymph # (Auto) 0.4 L, [place] # (Auto) 0.3, Eos # (Auto) 0.0, Baso # (Auto) 0.0, Total Counted 100, Neutrophils % (Manual) 96 H, Lymphocytes % (Manual) 1 L, Atypical Lymphs % 1.0, Monocytes % (Manual) 2, Platelet Estimate Normal, RBC Morphology Normal 01/05/19 05:32: Sodium 142, Potassium 4.4, Chloride 106, Carbon Dioxide 21, Anion Gap 19.4 H, BUN 56 H, Creatinine 3.77 H, Estimated Creat Clear 16, Estimated GFR 12 L*, Est GFR ( Amer) 14 L*, Glucose 181 H, Calcium 6.7 L I & O for Last 24 hours: Intake & Output 01/02/19 01/03/19 01/04/19 01/05/19 23:59 23:59 23:59 23:59 Intake Total 1200 / 1200 720 / 720 4223 / 4223 360 / 360 Output Total 200 / 200 1700 / 1700 1350 / 1350 1800 / 1800 Balance 1000 / 1000 -980 / -980 2873 / 2873 -1440 / -1440 Weight 74.191 kg 77.281 kg Microbiology Reports for the Last 24 Hours: Microbiology 01/02/19 08:30 Sputum - Expectorated Sputum - Final Not Reportable 01/02/19 08:30 Sputum - Expectorated Sputum - Final Not Reportable 01/02/19 08:30 Sputum - Expectorated Sputum - Final Not Reportable 01/02/19 08:30 Sputum - Expectorated Sputum - Final Not Reportable 01/02/19 08:30 Sputum - Expectorated Sputum - Final Not Reportable 01/02/19 08:30 Sputum - Expectorated Sputum Gram Stain - Final 01/02/19 08:30 Sputum - Expectorated Sputum Sputum Culture - Final Gram Positive Bacilli Assessment and Plan (1) Acute renal failure Current visit: Yes Status: Acute Category: Medical Code(s): N17.9 - Acute kidney failure, unspecified (2) Influenza A Current visit: Yes Status: Acute Category: Medical Code(s): J10.1 - Influenza due to other identified influenza virus with other respiratory manifestations (3) Nausea Current visit: Yes Status: Acute Category: Medical Code(s): R11.0 - Nausea (4) C. difficile colitis Current visit: No Status: Acute Category: Medical Code(s): A04.72 - Enterocolitis due to Clostridium difficile, not specified as recurrent (5) CAD (coronary artery disease) Current visit: No Status: Chronic Qualifiers: Coronary Disease-Associated Artery/Lesion type: nikolai artery [place] vs. transplanted heart: nikolai heart Associated angina: with stable angina Qualified Code(s): I25.118 - Atherosclerotic heart disease of nikolai coronary artery with other forms of angina pectoris Category: Medical Code(s): I25.10 - Atherosclerotic heart disease of nikolai coronary artery without angina pectoris (6) Chronic systolic heart failure Current visit: No Status: Chronic Category: Medical Code(s): I50.22 - Chronic systolic (congestive) heart failure (7) Dehydration Current visit: No Status: Acute Category: Medical Code(s): E86.0 - Dehydration (8) Acute hypoxemic respiratory failure Current visit: Yes Status: Acute Category: Medical Code(s): J96.01 - Acute respiratory failure with hypoxia The patient's infection will respond to the chosen ABx?: Yes Is the patient receiving the right drug, dose, and route?: Yes Could a more targeted ABx be ordered?: No (CULTURE SENSITIVIES NOT BACK YET.)
--- NOTE | 2019-01-05 10:21 | Discharge Summary ---
General - General Admission date:: 01/01/19 Discharge date: 01/05/19 [facility] HPI: Ms. Arevalo is a pleasant 73-year-old female with an extensive past medical history over the last month. History of coronary artery disease, systolic heart failure, status post stent placement at the end of November, currently being treated for C. difficile colitis, chronic kidney disease and hypertension at baseline. She presented to the emergency room with progressive weakness, fatigue, shortness of breath. On admission was noted to have acute renal failure and flu. Additionally she is continued to have daily diarrhea with watery stools during treatment for her C. difficile colitis. Patient was admitted to medicine for treatment of her flu/respiratory failure, fluid resuscitation. Currently stable on 2 L nasal cannula, does not wear oxygen at baseline. Tolerating oral medication and regular diet. Is dyspneic on interview this morning. Appears very ill and weak. Repeat stool culture obtained. Fever, shortness of breath, nausea, diarrhea. Denies chest pain, syncope, confusion Hospital Course Hospital Course: Patient was admitted to hospital as noted in HPI. Sputum and blood cultures were done. Blood cultures show no growth, sputum is growing a gram-positive organism, identification pending. Patient also had a positive test for influenza A rapid serology, and was started on renal dose Tamiflu. Noted to have significantly elevated creatinine indicative of renal insufficiency and initially was treated with IV fluids but developed fluid overload and also had no improvement in the creatinine. At that point it was felt that she had ATN from multiple causes, infectious versus hemodynamic versus ongoing recovery from her digitoxin toxicity. At that point diuresis was done which resolved her respiratory issues and in fact improved her creatinine this morning down to 3.3. Patient felt much better, passed PT evaluation with flying colors and was able to do all of her self-care activities off oxygen which was a vast improvement. Plan will be to send her home, finishing her Tamiflu-renally dosed-also doing Omnicef 300 daily for the next 5 days to cover bacterial infections while we salvador it sensitivities from the sputum culture. She will have labs done on the morning of 01/07/19 to evaluate ongoing kidney function issues and he we will see her in the office on 01/08/19. Objective Vital signs: Temp Pulse Resp BP Pulse Ox 97.8 F 91 H 20 130/70 96 01/05/19 08:00 01/05/19 09:53 01/05/19 08:00 01/05/19 08:00 01/05/19 08:00 Narrative: Patient is alert, oriented x3. Up in a chair, on room air with good oxygen saturations. Lungs have much better air entry. No crackles. Minimal rhonchi but these clear with a deep breath. Oropharynx is moist. No JVD. Otherwise ENT exam clear Heart rate regular with no tachycardia. Abdomen is soft and nontender. No edema or clubbing in her extremities. She is weak but vastly improved over admission. She is without neurologic deficit in her cranial or peripheral nervous systems. Results Labs on day of discharge: Labs from last 24 hours 01/05/19 01/05/19 05:32 05:32 WBC 9.6 RBC 3.61 L Hgb 9.7 L Hct 30.0 L MCV 82.9 MCH 27.0 MCHC 32.6 RDW 15.5 Plt Count 312 MPV 7.9 Neut % (Auto) 93.0 H Lymph % (Auto) 3.8 L [place] % (Auto) 2.7 Eos % (Auto) 0.4 Baso % (Auto) 0.1 Neut # (Auto) 8.9 H Lymph # (Auto) 0.4 L [place] # (Auto) 0.3 Eos # (Auto) 0.0 Baso # (Auto) 0.0 Total Counted 100 Neutrophils % (Manual) 96 H Lymphocytes % (Manual) 1 L Atypical Lymphs % 1.0 Monocytes % (Manual) 2 Platelet Estimate Normal RBC Morphology Normal Sodium 142 Potassium 4.4 Chloride 106 Carbon Dioxide 21 Anion Gap 19.4 H BUN 56 H Creatinine 3.77 H Estimated Creat Clear 16 Estimated GFR 12 L* Est GFR ( Amer) 14 L* Glucose 181 H Calcium 6.7 L Preliminary micro results at discharge 01/01/19 17:34 Blood Culture - Preliminary Blood NO GROWTH AFTER 48 HOURS 01/01/19 16:45 Blood Culture - Preliminary Blood NO GROWTH AFTER 48 HOURS DS: Diagnosis - Discharge Diagnosis (1) Acute renal failure Status: Acute (2) Influenza A Status: Acute (3) Nausea Status: Resolved (4) C. difficile colitis Status: Resolved (5) CAD (coronary artery disease) Status: Chronic (6) Chronic systolic heart failure Status: Chronic (7) Dehydration Status: Resolved (8) Acute hypoxemic respiratory failure Status: Resolved Discharge Plan - Patient Discharge Instructions ACTIVITY: Continue current activity DIET: continue same diet Patient Instructions: Influenza, Acute Renal Failure - Follow up Plan Follow up with: Jose Patton MD [Staff Physician] - 01/08/19 Disposition: Home, Self-[facility] Medications: Home Medications Medication Instructions Recorded Confirmed Type aspirin 81 mg tablet,delayed 81 mg PO HS 12/03/17 01/01/19 History release fluticasone 50 mcg/actuation nasal 1 spray INTRANASAL DAILY 09/24/18 01/01/19 History spray,suspension levothyroxine 50 mcg capsule 50 mcg PO DAILY cap 11/06/18 01/01/19 History Albuterol Sulfate [Proventil-HFA 1 - 2 puffs IH Q6HP PRN 12/01/18 01/01/19 History 90mcg/puff Inh] Atorvastatin Calcium [Lipitor 40mg 40 mg PO DAILY 12/01/18 01/01/19 History Tablet] Carvedilol [Carvedilol 12.5mg Tab] 12.5 mg PO BID 12/01/18 01/01/19 History Fluoxetine HCl [Prozac] 20 mg PO DAILY 12/01/18 01/01/19 History Losartan Potassium 100 mg PO DAILY 12/01/18 01/01/19 History Ropinirole HCl [Requip] 1 mg PO HS 12/01/18 01/01/19 History Ticagrelor [Brilinta 90mg Tablet] 90 mg PO BID 12/26/18 01/01/19 History omeprazole 20 mg capsule,delayed 20 mg PO BID #60 cap 12/31/18 01/01/19 Rx release Vancomycin HCl 250 mg PO TID 01/01/19 01/01/19 History metroNIDAZOLE [Flagyl 250mg 250 mg PO TID 01/01/19 01/01/19 History Tablet] Cefdinir [Omnicef 300mg Capsule] 300 mg PO DAILY #5 cap 01/05/19 Rx Prescriptions/Medication Reconciliation: New Oseltamivir Phosphate [Tamiflu 6mg/mL oral susp 60mL bottle] 30 mg PO 0900 bottle Cefdinir [Omnicef 300mg Capsule] 300 mg PO DAILY #5 cap Continue aspirin 81 mg tablet,delayed release 81 mg PO HS levothyroxine 50 mcg capsule 50 mcg PO DAILY cap fluticasone 50 mcg/actuation nasal spray,suspension 1 spray INTRANASAL DAILY omeprazole 20 mg capsule,delayed release 20 mg PO BID #60 cap Albuterol Sulfate [Proventil-HFA 90mcg/puff Inh] 1 - 2 puffs IH Q6HP PRN PRN Reason: SOA Fluoxetine HCl [Prozac] 20 mg PO DAILY Carvedilol [Carvedilol 12.5mg Tab] 12.5 mg PO BID Atorvastatin Calcium [Lipitor 40mg Tablet] 40 mg PO DAILY Ticagrelor [Brilinta 90mg Tablet] 90 mg PO BID metroNIDAZOLE [Flagyl 250mg Tablet] 250 mg PO TID Vancomycin HCl 250 mg PO TID Discontinued Ropinirole HCl [Requip] 1 mg PO HS Losartan Potassium 100 mg PO DAILY Other Amb Orders: Basic Metabolic Panel Time Frame: 01/07/19, Facility: [facility], Location: Lab [facility] Complete Blood Count Auto Diff Time Frame: 01/07/19, Facility: [facility], Location: Lab [place] Location
== END 2019-01-05 11:36 | disposition home or self-care (01) | DRG 193 ==
LOC: ER 16:41 → 2ND 16:41 → OBSVTOIN 18:45 → 2ND 18:46
PROVIDERS: ADMIT Family Medicine; ATTEND Internal Medicine Adolescent Medicine
DX: I50.22 Chronic systolic (congestive) heart failure; Z79.899 Other long term (current) drug therapy; J44.9 Chronic obstructive pulmonary disease, unspecified; Z95.5 Presence of coronary angioplasty implant and graft; I25.10 Atherosclerotic heart disease of native coronary artery without angina pectoris; I13.0 Hypertensive heart and chronic kidney disease with heart failure and stage 1 through stage 4 chronic kidney disease, or unspecified chronic kidney disease; Z88.8 Allergy status to other drugs, medicaments and biological substances; I42.9 Cardiomyopathy, unspecified; J96.01 Acute respiratory failure with hypoxia; E86.0 Dehydration; J10.1 Influenza due to other identified influenza virus with other respiratory manifestations; Z88.0 Allergy status to penicillin; N18.9 Chronic kidney disease, unspecified
CPT/HCPCS: 36415; 71010; 71045; 80048; 80053; 80162; 83605; 84100; 85007; 85025; 87040; 87045; 87070; 87077; 87205; 87275; 87276; 93005; 94640; 94761; 96365; 96375; 97162; 99284; J2405

== ENCOUNTER → 2019-01-08 07:46 | Outpatient (CLI) | payer MEDICARE, SELFPAY ==
[2019-01-08 09:23] LABS: Basophils % 0.2 % (0.1-2.0); Eosinophils # 0.1 K/mm3 (0.0-0.4); Eosinophils % 0.5 % (0.1-12.0); Hematocrit 30.6 % (37.0-47.0); Lymphocytes # 0.7 K/mm3 (0.7-4.5); Lymphocytes % 6.8 % (10-50); Mean Corpuscular HGB Conc 32.8 g/dL (31.8-35.4); Mean Corpuscular Hemoglobin 26.9 pg (27.0-31.2); Monocytes # 0.3 K/mm3 (0.1-1.0); Monocytes % 3.4 % (1.7-9.3); Neutrophils # 8.5 K/mm3 (1.8-7.8); Platelet Count 255 K/mm3 (142-424); Red Blood Count 3.73 M/mm3 (4.20-5.40); Red Cell Distribution Width 15.8 % (11.5-17.5); White Blood Count 9.5 K/mm3 (4.8-10.8)
[2019-01-08 09:25] LABS: MANUAL DIFFERENTIAL MANUAL DIFFERENTIAL (MANUAL DIFF)
[2019-01-08 11:10] LABS: Lymphocytes % 7 % (10-50); Monocytes % 3 % (2-9); Neutrophils % 90 % (42-76); Platelet Estimate Normal; RBC Morphology Normal; Total Cells Counted 100
[2019-01-08 11:11] LABS: Anion Gap 15.5 mEq/L (5-15); Blood Urea Nitrogen 35 mg/dL (7-18); Carbon Dioxide 24 mmol/L (21.0-32.0); Chloride 110 mmol/L (98-107); Creatinine,Serum 2.01 mg/dL (0.55-1.02); Estimated Glomerular Filt Rate 24 ml/min (>60); GFR (African American) 29 ML/MIN (>60); Glucose 131 mg/dL (74-106); Potassium 3.5 mmoL/L (3.5-5.1); Sodium 146 mmol/L (136-145)
[2019-01-08 11:18] LABS: Calcium 6.3 mg/dL (8.5-10.1)
== END ==
LOC: LAB.CARL 07:48 → LAB 07:51
PROVIDERS: PCP Internal Medicine Adolescent Medicine; Visit Provider Internal Medicine Adolescent Medicine
DX: N17.9 Acute kidney failure, unspecified (principal); J10.1 Influenza due to other identified influenza virus with other respiratory manifestations
CPT/HCPCS: 36415; 80048; 85007; 85025

== ENCOUNTER 2019-01-11 16:28 | Observation (INO) ==
--- NOTE | 2019-01-11 16:32 | Emergency Department Note ---
ED Disposition Clinical Impression: Periscapular pain, Elevated d-dimer Dyspnea Qualifiers: Dyspnea type: shortness of breath Qualified Code(s): R06.02 - Shortness of b reath Disposition: Admitted as Observation Condition on Discharge: Fair - Critical Care Critical Care Time: No Attestation: On , the high probability of a clinically significant, sudden or life threatening deterioration of the following system(s) required my full and direct attention, intervention and personal management. The time I documented below is in addition to time spent performing reported procedures but includes the following listed in this critical care notation. Medical Decision Making - Augustine Inquiry Pt receiving controlled substance: Yes [place] was queried for this patient: No Reason not queried -: Emergent pt cond-no time Risks and benefits of using a controlled substance: were not discussed with pt by me Vital Signs: 01/11/19 16:29 01/11/19 17:30 01/11/19 18:02 Temperature 98.7 F Temperature Source Oral Pulse Rate [Left Radial] 101 H 102 H 87 Respiratory Rate 28 H 24 24 Blood Pressure [Right Arm] 118/80 123/78 133/86 Blood Pressure Mean [Right Arm] 92 93 101 Blood Pressure Source [Right Arm] Automatic Cuff Automatic Cuff Automatic Cuff Blood Pressure Position [Right Arm] Sitting Sitting Sitting 02 Sat by Pulse Oximetry 97 97 97 Oxygen Delivery Method Room Air Room Air Nasal Cannula Oxygen Flow Rate (LPM) 2 - Lab Data Lab Results 01/11/19 16:42: WBC 14.2 H, RBC 3.84 L, Hgb 10.2 L, Hct 32.0 L, MCV 83.3, MCH 26.6 L, MCHC 31.9, RDW 15.7, Plt Count 244, MPV 9.1, Neut % (Auto) 89.2 H, Lymph % (Auto) 5.6 L, [place] % (Auto) 4.6, Eos % (Auto) 0.5, Baso % (Auto) 0.1, Neut # (Auto) 12.7 H, Lymph # (Auto) 0.8, [place] # (Auto) 0.7, Eos # (Auto) 0.1, Baso # (Auto) 0.0, Total Counted 100, Neutrophils % (Manual) 88 H, Lymphocytes % (Manual) 4 L, Monocytes % (Manual) 8, Platelet Estimate Normal, RBC Morphology Normal 01/11/19 16:42: Sodium 143, Potassium 3.7, Chloride 107, Carbon Dioxide 25, Anion Gap 14.7, BUN 16, Creatinine 1.55 H, Estimated Creat Clear 34, Estimated GFR 33 L, Est GFR ( Amer) 40 L, Glucose 156 H, Calcium 6.9 L, Troponin I 0.03 01/11/19 16:42: Lactate 1.1 01/11/19 16:42: D-Dimer 1660 H* Result diagrams: 01/11/19 16:42 01/11/19 16:42 Orders (Tests/Meds): ED MEDICATIONS Generic Name Dose Route Start Last Admin Trade Name Freq PRN Reason Stop Dose Admin Enoxaparin Sodium 70 mg 01/11/19 21:00 Lovenox 80mg/0.8ml Syringe SQ 02/10/19 20:59 BID [place] Discontinued Medications Generic Name Dose Route Start Last Admin Trade Name Freq PRN Reason Stop Dose Admin Methylprednisolone Sodium Succinate 125 mg 01/11/19 17:18 01/11/19 17:25 Solu-Medrol 125mg/2ml Vial IV 01/11/19 17:19 125 mg ONCE ONE Administration Morphine Sulfate 4 mg 01/11/19 17:18 01/11/19 17:25 Morphine 4mg/Ml Syringe IV 01/11/19 17:19 4 mg ONCE ONE Administration Morphine Sulfate 4 mg 01/11/19 18:26 01/11/19 18:27 Morphine 4mg/Ml Syringe IV 01/11/19 18:27 4 mg ONCE ONE Administration Ondansetron HCl 4 mg 01/11/19 17:18 01/11/19 17:25 Zofran 4mg/2ml Vial IV 01/11/19 17:19 4 mg ONCE ONE Administration ORDERS Category Date Time Status Chest XR -- portable [XR chest portable] Stat Exams 01/11/19 16:40 Taken XR thoracic spine 3V Stat Exams 01/11/19 17:25 Taken Blood Culture Stat Micro 01/11/19 16:42 Received ECG Request by /Juan Luis Stat Y 01/11/19 16:40 Ordered - Radiology Data #1 Image(s): Chest, T-Spine Image Reviewed: Yes I reviewed the patient's radiology image Chest x-ray interpreted by Eric Bass M.D. No infiltrate, pneumothorax, pleural effusion, or wide mediastinum. Thoracic spine x-ray interpreted by Eric Bass MD. Negative for fracture, dislocation, or subluxation. Degenerative changes present. - ECG Data Tracing #1 EKG interpreted by Eric Bass MD: Rhythm: sinus Rate: 97 [place]: normal Ectopy: none Conduction: Left bundle branch block ST Segment Changes: none T Wave Changes: none Q Waves: none Poor R wave progression No evidence of acute ischemia or injury Prior electrocardiagrams reviewed. No change from prior tracings. - Physician Consults Physician Consulted: Ameya Lewis Time: 18:07 Reason -: Admission Comment/Response: Agrees to admit the patient to the hospital. We discussed the patient's clinical information, including history, exam, laboratory and r adiology results and ED course. Per hospital procedure, I will write temporary bridge inpatient orders on the patient. Specific orders requested by the admitting physician: Pain medication, serial cardiac enzymes, Lovenox, gentle hydration, recheck chemistry profile in the morning and Dr. Lewis will decide on CT angiogram versus VQ scan. Medical Decision Narrative: Will defer CT angiogram at this time due to renal function. General Adult HPI - General Chief complaint: Shortness of Breath/Dyspnea Stated complaint: sob Time Seen by Provider: 01/11/19 17:05 - History of Present Illness HPI narrative: Patient arrives by ambulance from home. States that this afternoon she developed severe pain in her left shoulder blade area going down her left arm. Pain increases with movement. No injury. Says she was just reading a book when it started. She also says she is short of breath that began this afternoon. Slight cough, no hemoptysis. No leg pain. Has had some swelling related to recent steroid administration, but no new swelling. No prior history of similar type pain. Recently hospitalized 01/01/19-01/05/19 for influenza, Clostridium difficile, acute renal failure, respiratory failure. Had a left heart cath and cardiac stent on 12/19/18. - Related Data Home Medications Medication Instructions Recorded Confirmed aspirin 81 mg tablet,delayed 81 mg PO HS 12/03/17 01/11/19 release levothyroxine 50 mcg capsule 50 mcg PO DAILY cap 11/06/18 01/11/19 Atorvastatin Calcium [Lipitor 40mg 40 mg PO DAILY 12/01/18 01/11/19 Tablet] Carvedilol [Carvedilol 12.5mg Tab] 12.5 mg PO BID 12/01/18 01/11/19 Fluoxetine HCl [Prozac] 20 mg PO DAILY 12/01/18 01/11/19 Ticagrelor [Brilinta 90mg Tablet] 90 mg PO BID 12/26/18 01/11/19 Previous Rx's Medication Instructions Recorded omeprazole 20 mg capsule,delayed 20 mg PO BID #60 cap 12/31/18 release Allergies Allergy/AdvReac Type Severity Reaction Status Date / Time Penicillins [PENICILLINS] Allergy Unknown I-HIVES Verified 01/01/19 17:04 promethazine [From Phenergan] AdvReac Intermediate Shakiness Verified 01/01/19 22:39 [facility] History - Hepatitis A Screen Attestation statement:: This patient has been screened for Hepatitis A risk factors. I have reviewed the patient's past medical history: Yes Medical History: Reports:: Anxiety (on fluoxetine), Atherosclerotic Heart Disease, Cardiomyopathy, Congestive Heart Failure, Chronic Obstructive Pulmonary Disease (COPD), Coronary Artery Disease, Hyperlipidemia, Hypertension, Renal Insufficiency, Urinary Tract Infection Denies:: Cancer, Diabetes Mellitus Type 1, Diabetes Mellitus Type 2, MRSA Other Medical History: Reports: Arthritis, Thyroid Disease Comment: NADIA Laterality Cases: Left: Other Other Surgeries: Yes: No Previous Surgery, Appendectomy, Cardiac Catheterization, Cholecystectomy, Coronary Stent, , Other (back surgery) Amputation: No Fractures: No - Social History Smoking Status: Never smoker Alcohol Intake: never Alcohol Intake Frequency:: other Substance Use Type: denies use Occupational Status: retired Housing: house Household Members: spouse - Psychiatric History Pschychiatric History:: Reports:: Anxiety (on fluoxetine) Family Hx:: No significant family history ROS Obtained: Yes All systems reviewed & no additional complaints - Constitutional Constitutional: Denies fever(s) - Cardiovascular Cardiovascular: Reports chest pain (No anterior chest pain, just left periscapular pain) - Respiratory Respiratory: Yes cough (Slight), Yes dyspnea, No excessive phlegm production, No coughing up blood - Gastrointestinal Gastrointestingal: Reports: diarrhea (1 diarrhea stool today). Denies: abdominal pain, vomiting - Musculoskeletal Musculoskeletal: Reports back pain Physical Exam - General General appearance: alert, other (Moaning in pain, worsening with movement) - Head Head exam: atraumatic, normocephalic - Eye Eye exam: Present: normal appearance, PERRL - Neck Neck exam: Present: trachea midline - Chest Chest inspection: Present: normal inspection, symmetric chest wall rise - Respiratory Respiratory exam: Present: normal lung sounds bilaterally. Absent: respiratory distress - Cardiovascular Cardiovascular exam: Present: regular rate, normal rhythm, normal heart sounds - Abdominal Exam Abdominal exam: Present: soft. Absent: distention, tenderness - Extremities Exam Extremities exam: Present: normal inspection, full ROM. Absent: tenderness, pedal edema, calf tenderness - Back Exam Back exam: Present: normal inspection, tenderness (Left periscapular), other (No rash). Absent: vertebral tenderness - Neurological Exam Neurological exam: Present: alert, oriented X3 - Psychiatric Psychiatric exam: Present: anxious - Skin Skin exam: Present: warm, dry
[2019-01-11 17:05] LABS: Basophils % 0.1 % (0.1-2.0); Eosinophils # 0.1 K/mm3 (0.0-0.4); Eosinophils % 0.5 % (0.1-12.0); Hemoglobin 10.2 g/dL (12.2-16.2); Lymphocytes # 0.8 K/mm3 (0.7-4.5); Lymphocytes % 5.6 % (10-50); Mean Corpuscular HGB Conc 31.9 g/dL (31.8-35.4); Mean Corpuscular Hemoglobin 26.6 pg (27.0-31.2); Mean Corpuscular Volume 83.3 fl (81-99); Mean Platelet Volume 9.1 fl (7.4-10.4); Monocytes # 0.7 K/mm3 (0.1-1.0); Monocytes % 4.6 % (1.7-9.3); Neutrophils # 12.7 K/mm3 (1.8-7.8); Neutrophils % 89.2 % (37.0-80.0); Platelet Count 244 K/mm3 (142-424); Red Blood Count 3.84 M/mm3 (4.20-5.40); Red Cell Distribution Width 15.7 % (11.5-17.5); White Blood Count 14.2 K/mm3 (4.8-10.8)
[2019-01-11 17:18] LABS: Anion Gap 14.7 mEq/L (5-15); Potassium 3.7 mmoL/L (3.5-5.1)
[2019-01-11 17:20] LABS: Calcium 6.9 mg/dL (8.5-10.1)
[2019-01-11 17:21] LABS: Lymphocytes % 4 % (10-50); Monocytes % 8 % (2-9); Neutrophils % 88 % (42-76); RBC Morphology Normal; Total Cells Counted 100
[2019-01-12 06:50] LABS: Calcium 6.7 mg/dL (8.5-10.1)
--- NOTE | 2019-01-12 07:23 | Pharmacy Consult Notes ---
[facility] Pharmacy VTE Monitoring - Patient Demographics Admission date: 01/11/19 Report Date: 01/12/19 Time: 07:22 Allergies/Adverse Reactions: Patient Allergies Penicillins [PENICILLINS] Allergy (Unknown, Verified 01/01/19 17:04) I-HIVES promethazine [From Phenergan] Adverse Reaction (Intermediate, Verified 01/01/19 22:39) Shakiness Height: 1.55 m Weight: 71.724 kg Patient Problems: Current Active Problems Periscapular pain (Acute) Elevated d-dimer (Acute) Dyspnea (Chronic) - VTE Risk Labs: VTE Related Lab Results Hgb 10.2 g/dL (12.2-16.2) L 01/11/19 16:42 Hct 32.0 % (37.0-47.0) L 01/11/19 16:42 Plt Count 244 K/mm3 (142-424) 01/11/19 16:42 BUN 18 mg/dL (7-18) 01/12/19 06:00 Creatinine 1.52 mg/dL (0.55-1.02) H 01/12/19 06:00 Estimated Creat Clear 37 mL/min (50-200) 01/12/19 06:00 Was VTE Risk Assessment Performed: Yes VTE Score: 8 VTE Risk Level: Moderate Risk - Prophylaxis VTE Prophylaxis Ordered?: Yes Types of VTE Prophylaxis: Pharmacological Pharmacologic Type: Other (BRILINTA) - VTE Diagnosis Confirmed Treatment or plan recommended: Continue Current Treatment
--- NOTE | 2019-01-12 08:13 | History & Physical Report ---
*Admission Date: 01/11/19 *Chief complaint: Chest pain/dyspnea *History of present illness: 73-year-old white female with multiple medical problems since November of this year, including coronary disease with stent placement at the beginning of November, C. difficile colitis, and influenza A requiring a couple hospitalizations in November and the first part of December. She was discharged home after doing better, and I followed her in the office, where she was noted to have improving acute knee injury, and continued hypocalcemia. We were treating her as an outpatient she came to the emergency department yesterday evening with sharp left-sided chest pain. EKG unchanged, troponins were unremarkable, she was hypocalcemic but slightly over outpatient labs, and was found to have markedly elevated d-dimer testing. Given her renal insufficiency issue CT scan and was unable performed. She was placed on Lovenox and admit hospital for further testing. This morning she feels better, and has ongoing improvement in dyspnea and no current pain either in the anterior posterior part of her left scapular area is what she complained of on presentation to the ER. [facility] History I have reviewed the patient's past medical history: Yes Medical History: Reports:: Anxiety (on fluoxetine), Atherosclerotic Heart Disease, Cardiomyopathy, Congestive Heart Failure, Chronic Obstructive Pulmonary Disease (COPD), Coronary Artery Disease, Hyperlipidemia, Hypertension, Renal Insufficiency, Urinary Tract Infection Denies:: Cancer, Diabetes Mellitus Type 1, Diabetes Mellitus Type 2, MRSA *Have you ever received a pneumonia vaccine?: Yes *Have you received a flu vaccine this season?: Yes Other Medical History: Reports: Arthritis, Thyroid Disease Laterality Cases: Left: Other Other Surgeries: Yes: No Previous Surgery, Appendectomy, Cardiac Catheterization, Cholecystectomy, Coronary Stent, , Other (back surgery) Amputation: No Fractures: No - *Social History Smoking Status: Never smoker Alcohol Intake: never Alcohol Intake Frequency:: other Substance Use Type: denies use *Occupational Status:: retired Housing: house Household Members: spouse *Travel in the last 8 weeks: None - Psychiatric History Expresses thoughts of harming self/others: None Suicide Plan Description: No Plan Pschychiatric History:: Reports:: Anxiety (on fluoxetine) Family Hx:: No significant family history Review of Systems - Review of Systems Review of systems:: pertinent systems reviewed and negative unless documented below - Constitutional Reports fatigue, Denies anorexia, Denies increased appetite - Eyes Denies blind spots, Denies blurry vision - ENT Denies abnormal hearing, Denies dizziness, Denies dry mouth - *Cardiovascular Reports chest pain, Reports shortness of breath, Denies shortness of breath with activity, Denies irregular heart rhythm, Denies leg swelling - *Respiratory Denies change in phlegm color, Denies chest congestion, Denies excessive phlegm production - *Gastrointestinal Denies abdominal pain, Denies belching - *Musculoskeletal Denies abnormal walking - Integumentary/Breasts Denies acne, Denies hair loss - *Neurologic Denies abnormal walking Meds Home Medications Medication Instructions Recorded Confirmed Type aspirin 81 mg tablet,delayed 81 mg PO HS 12/03/17 01/11/19 History release levothyroxine 50 mcg capsule 50 mcg PO DAILY cap 11/06/18 01/11/19 History Atorvastatin Calcium [Lipitor 40mg 40 mg PO DAILY 12/01/18 01/11/19 History Tablet] Carvedilol [Carvedilol 12.5mg Tab] 12.5 mg PO BID 12/01/18 01/11/19 History Fluoxetine HCl [Prozac] 20 mg PO DAILY 12/01/18 01/11/19 History Ticagrelor [Brilinta 90mg Tablet] 90 mg PO BID 12/26/18 01/11/19 History omeprazole 20 mg capsule,delayed 20 mg PO BID #60 cap 12/31/18 01/11/19 Rx release Allergies Allergy/AdvReac Type Severity Reaction Status Date / Time Penicillins [PENICILLINS] Allergy Unknown I-HIVES Verified 01/01/19 17:04 promethazine [From Phenergan] AdvReac Intermediate Shakiness Verified 01/01/19 22:39 Exam Vital signs and Labs for Last 24 Hours: Temp Pulse Resp BP Pulse Ox 97.9 F 80 18 134/72 97 01/12/19 07:08 01/12/19 07:08 01/12/19 07:08 01/12/19 07:08 01/12/19 07:08 Laboratory Results - last 24 hr 01/11/19 16:42: WBC 14.2 H, RBC 3.84 L, Hgb 10.2 L, Hct 32.0 L, MCV 83.3, MCH 26.6 L, MCHC 31.9, RDW 15.7, Plt Count 244, MPV 9.1, Neut % (Auto) 89.2 H, Lymph % (Auto) 5.6 L, [place] % (Auto) 4.6, Eos % (Auto) 0.5, Baso % (Auto) 0.1, Neut # (Auto) 12.7 H, Lymph # (Auto) 0.8, [place] # (Auto) 0.7, Eos # (Auto) 0.1, Baso # (Auto) 0.0, Total Counted 100, Neutrophils % (Manual) 88 H, Lymphocytes % (Manual) 4 L, Monocytes % (Manual) 8, Platelet Estimate Normal, RBC Morphology Normal 01/11/19 16:42: Sodium 143, Potassium 3.7, Chloride 107, Carbon Dioxide 25, Anion Gap 14.7, BUN 16, Creatinine 1.55 H, Estimated Creat Clear 34, Estimated GFR 33 L, Est GFR ( Amer) 40 L, Glucose 156 H, Calcium 6.9 L, Troponin I 0.03 01/11/19 16:42: Lactate 1.1 01/11/19 16:42: D-Dimer 1660 H* 01/11/19 21:52: Troponin I 0.03 01/12/19 00:25: Troponin I 0.04 01/12/19 06:00: Sodium 145, Potassium 4.0, Chloride 109 H, Carbon Dioxide 23, Anion Gap 17.0 H, BUN 18, Creatinine 1.52 H, Estimated Creat Clear 37, Estimated GFR 34 L, Est GFR ( Amer) 41 L, Glucose 160 H, Calcium 6.7 L I & O for Last 24 hours: Intake & Output 01/09/19 01/10/19 01/11/19 01/12/19 11:59 11:59 11:59 11:59 Intake Total 240 / 240 Balance 240 / 240 Weight 158 lb 2 oz Narrative: Patient is pleasant to talk, oriented x3. In no respiratory distress Lungs have good air bilaterally in the anterior and posterior zamora. Heart rate regular without murmur. Abdomen soft and nontender. Extremities are without edema, she has no clubbing and her perfusion is good in the lower excuse. No cranial nerve deficits. She can move all of her arms and legs. Shoulder rotation bilaterally is without pain. She has no skin rash. Oropharynx is clear, no JVD. Assessment and Plan (1) Hypocalcemia Current visit: Yes Status: Acute Category: Medical Code(s): E83.51 - Hypocalcemia Will replace intravenous today. (2) Elevated d-dimer Current visit: Yes Status: Acute Category: Medical Code(s): R79.89 - Other specified abnormal findings of blood chemistry VQ scan and Doppler ultrasound of legs. If these are negative it is reasonable that her elevated dimer is from her recent inflammatory processes. (3) Periscapular pain Current visit: Yes Status: Acute Category: Medical Code(s): M89.8X1 - Other specified disorders of bone, shoulder Improving. Await VQ scan. (4) Dyspnea Current visit: Yes Status: Chronic Qualifiers: Dyspnea type: shortness of breath Qualified Code(s): R06.02 - Shortness of breath; R06.00 - Dyspnea, unspecified; R06.01 - Orthopnea Category: Medical Code(s): R06.00 - Dyspnea, unspecified Improving. (5) Acute renal failure Current visit: No Status: Acute Category: Medical Code(s): N17.9 - Acute kidney failure, unspecified Improved since admission previously. Watch labs tomorrow.
--- NOTE | 2019-01-12 09:05 | Non-Invasive Vascular Report ---
"Venous Exam IMPRESSIONS 1. There is no evidence of significant Reflux. 2. No evidence of deep or superficial vein thrombosis involving the right lower extremity and left lower extremity History: Bilateral lower extremity pain. Swelling of both lower extremities. Risk factors: Obese. Medications: Brilinta daily. Complete lower extremity venous duplex evaluation. Doppler flow study including spectral analysis, color and case scale imaging. Location: Bedside. Patient status: Inpatient. Tables: Venous flow and imaging: + +-------+ + |Location |Overall|Flow properties | + +-------+ + |Right common femoral |Patent |Normal phasicity; spontaneous; | | | |normal augmentation; compressible| + +-------+ + |Right saphenofemoral junction|Patent |Compressible | + +-------+ + |Right profunda femoral |Patent |Compressible | + +-------+ + |Right femoral |Patent |Normal phasicity; spontaneous; | | | |normal augmentation; | | | |compressible; no reflux | + +-------+ + |Right greater saphenous |Patent |Normal phasicity; spontaneous; | | | |normal augmentation; compressible| + +-------+ + |Right popliteal |Patent |Normal phasicity; spontaneous; | | | |normal augmentation; compressible| + +-------+ + |Right posterior tibial |Patent |Compressible | + +-------+ + |Right peroneal |Patent |Compressible | + +-------+ + |Right gastrocnemius |Patent |Compressible | + +-------+ + |Right soleal |Patent |Compressible | + +-------+ + |Left common femoral |Patent |Normal phasicity; spontaneous; | | | |normal augmentation; compressible| + +-------+ + |Left saphenofemoral junction |Patent |Compressible | + +-------+ + |Left profunda femoral |Patent |Compressible | + +-------+ + |Left femoral |Patent |Normal phasicity; spontaneous; | | | |normal augmentation; compressible| + +-------+ + |Left greater saphenous |Patent |Normal phasicity; spontaneous; | | | |normal augmentation; compressible| + +-------+ + |Left popliteal |Patent |Normal phasicity; spontaneous; | | | |normal augmentation; compressible| + +-------+ + |Left posterior tibial |Patent |Compressible | + +-------+ + |Left peroneal |Patent |Compressible | + +-------+ + |Left gastrocnemius |Patent |Compressible | + +-------+ + |Left soleal |Patent |Compressible | + +-------+ + (Report amended ) Electronically signed by: Marquise Fountain [id number]"
[2019-01-13 06:48] LABS: Eosinophils % 0.1 % (0.1-12.0); Hematocrit 28.9 % (37.0-47.0); Hemoglobin 9.2 g/dL (12.2-16.2); Lymphocytes # 0.3 K/mm3 (0.7-4.5); Lymphocytes % 3.3 % (10-50); Mean Corpuscular HGB Conc 31.9 g/dL (31.8-35.4); Mean Corpuscular Hemoglobin 27.2 pg (27.0-31.2); Mean Corpuscular Volume 85.1 fl (81-99); Mean Platelet Volume 9.4 fl (7.4-10.4); Monocytes # 0.3 K/mm3 (0.1-1.0); Monocytes % 2.9 % (1.7-9.3); Neutrophils # 9.2 K/mm3 (1.8-7.8); Neutrophils % 93.7 % (37.0-80.0); Platelet Count 210 K/mm3 (142-424); Red Blood Count 3.39 M/mm3 (4.20-5.40); Red Cell Distribution Width 15.9 % (11.5-17.5); White Blood Count 9.8 K/mm3 (4.8-10.8)
[2019-01-13 06:58] LABS: Albumin Level 2.2 gm/dL (3.4-5.0); Albumin/Globulin Ratio 0.6 (1.1-1.8); Anion Gap 16.5 mEq/L (5-15); Bilirubin,Total 0.4 mg/dL (0.2-1.0); Globulin 3.5 gm/dl (1.3-3.2); Potassium 4.5 mmoL/L (3.5-5.1); Total Protein,Serum 5.7 gm/dL (6.4-8.2)
[2019-01-13 07:06] LABS: Calcium 6.9 mg/dL (8.5-10.1)
[2019-01-13 08:48] LABS: Lymphocytes % 2 % (10-50); Monocytes % 1 % (2-9); Neutrophils % 97 % (42-76); Total Cells Counted 100
--- NOTE | 2019-01-13 13:06 | Progress Note ---
Internal Medicine - PN: Subj *Date: 01/13/19 *Time: 08:20 Interval history: No acute events overnight. Patient continues to remain weak. Afebrile, denies nausea or vomiting. Remained pain-free with resolution of pain in left upper chest/back that was presentation. Currently with mental oxygen, will assess for oxygen need by measuring room O2 sats. Reports still slight cough after her recent for flu. Denies confusion or altered normal status Exam Vital signs and Labs for Last 24 Hours: Temp Pulse Resp BP Pulse Ox 97.4 F L 76 17 113/62 97 01/13/19 11:36 01/13/19 11:36 01/13/19 11:36 01/13/19 11:36 01/13/19 11:36 Laboratory Results - last 24 hr 01/13/19 05:58: WBC 9.8 D, RBC 3.39 L, Hgb 9.2 L, Hct 28.9 L, MCV 85.1, MCH 27.2, MCHC 31.9, RDW 15.9, Plt Count 210, MPV 9.4, Neut % (Auto) 93.7 H, Lymph % (Auto) 3.3 L, [place] % (Auto) 2.9, Eos % (Auto) 0.1, Baso % (Auto) 0.0 L, Neut # (Auto) 9.2 H, Lymph # (Auto) 0.3 L, [place] # (Auto) 0.3, Eos # (Auto) 0.0, Baso # (Auto) 0.0, Total Counted 100, Neutrophils % (Manual) 97 H, Lymphocytes % (Manual) 2 L, Monocytes % (Manual) 1 L, Platelet Estimate Normal, Tom Cells 1+ 01/13/19 05:58: Sodium 142, Potassium 4.5, Chloride 107, Carbon Dioxide 23, Anion Gap 16.5 H, BUN 27 H D, Creatinine 1.65 H, Estimated Creat Clear 34, Estimated GFR 30 L, Est GFR ( Amer) 37 L, Glucose 210 H D, Calcium 6.9 L, Total Bilirubin 0.4, AST 10 L, ALT 19, Alkaline Phosphatase 76, Total Protein 5.7 L, Albumin 2.2 L, Globulin 3.5 H, Albumin/Globulin Ratio 0.6 L I & O for Last 24 hours: Intake & Output 01/10/19 01/11/19 01/12/19 01/13/19 23:59 23:59 23:59 23:59 Intake Total 960 / 960 2662 / 266 Output Total 200 / 200 Balance 760 / 760 2662 / 266 Weight 71.356 kg 71.668 kg Narrative: Patient is pleasant to talk, oriented x3. In no respiratory distress, on 2 L oxygen Lungs have good air movement bilaterally in the anterior and posterior zamora, intermittent rhonchi that clear with cough. Heart rate regular without murmur. Abdomen soft and nontender. Extremities are without edema, she has no clubbing and her perfusion is good in the lower extremities. No cranial nerve deficits. She can move all 4 extremities strength 4/5 Shoulder rotation bilaterally is without pain. She has no skin rash. Oropharynx is clear, no JVD. Assessment and Plan (1) Hypocalcemia Current visit: Yes Status: Acute Category: Medical Code(s): E83.51 - Hypocalcemia Continue place, status post 2 g IV. Additional 2 g ordered at this time. Repeat lab work this evening (2) Elevated d-dimer Current visit: Yes Status: Acute Category: Medical Code(s): R79.89 - Other specified abnormal findings of blood chemistry Negative for PE. Suspect due to recent illness and inflammation. Venous Dopplers negative (3) Periscapular pain Current visit: Yes Status: Acute Category: Medical Code(s): M89.8X1 - Other specified disorders of bone, shoulder PRN pain management as ordered (4) Dyspnea Current visit: Yes Status: Chronic Qualifiers: Dyspnea type: shortness of breath Qualified Code(s): R06.02 - Shortness of breath; R06.00 - Dyspnea, unspecified; R06.01 - Orthopnea Category: Medical Code(s): R06.00 - Dyspnea, unspecified (5) Acute renal failure Current visit: No Status: Acute Category: Medical Code(s): N17.9 - Acute kidney failure, unspecified Improving from a week ago. Is back to baseline status. Caution with renal toxins. Monitor with daily. - Assessment and plan all Dx Assessment and Plan for all problems:: Patient has significant debility. Given recurrent admissions over the past month and significant illnesses, suspect overall weakness and debility related to illness. Physical therapy assessment be performed today as patient would likely benefit from short-term hospitalization with rehab. Despite pending PT Recs.
--- NOTE | 2019-01-14 08:28 | Progress Note ---
Internal Medicine - PN: Subj *Date: 01/14/19 *Time: 08:27 Interval history: Patient feels better today. Has been up in a chair yesterday. Continues to be very weak. Physical therapy notes reviewed. Exam Vital signs and Labs for Last 24 Hours: Temp Pulse Resp BP Pulse Ox 97.9 F 87 17 130/63 97 01/14/19 08:00 01/14/19 08:00 01/14/19 08:00 01/14/19 08:00 01/14/19 08:00 Laboratory Results - last 24 hr 01/13/19 05:58: Total Counted 100, Neutrophils % (Manual) 97 H, Lymphocytes % (Manual) 2 L, Monocytes % (Manual) 1 L, Platelet Estimate Normal, Tom Cells 1+ I & O for Last 24 hours: Intake & Output 01/11/19 01/12/19 01/13/19 01/14/19 11:59 11:59 11:59 11:59 Intake Total 240 / 240 3383 / 3383 3104 / 3104 Output Total 200 / 200 800 / 800 Balance 240 / 240 3183 / 3183 2304 / 2304 Weight 158 lb 169 lb 9 oz Microbiology Reports for the Last 24 Hours: Microbiology 01/11/19 16:42 Blood Blood Culture - Preliminary NO GROWTH AFTER 48 HOURS 01/11/19 16:42 Blood Blood Culture - Preliminary NO GROWTH AFTER 48 HOURS Narrative: Patient has scattered rhonchi, good air movement, lungs are clear otherwise. No edema noted in hands. Trace ankle edema. Patient is not wearing compression stockings. Alert, no neurologic deficits appreciated. Oropharynx clear, no JVD. Assessment and Plan (1) Hypocalcemia Current visit: Yes Status: Acute Category: Medical Code(s): E83.51 - Hypocalcemia (2) Elevated d-dimer Current visit: Yes Status: Acute Category: Medical Code(s): R79.89 - Other specified abnormal findings of blood chemistry (3) Periscapular pain Current visit: Yes Status: Acute Category: Medical Code(s): M89.8X1 - Other specified disorders of bone, shoulder (4) Dyspnea Current visit: Yes Status: Chronic Qualifiers: Dyspnea type: shortness of breath Qualified Code(s): R06.02 - Shortness of breath; R06.00 - Dyspnea, unspecified; R06.01 - Orthopnea Category: Medical Code(s): R06.00 - Dyspnea, unspecified (5) Acute renal failure Current visit: No Status: Acute Category: Medical Code(s): N17.9 - Acute kidney failure, unspecified - Assessment and plan all Dx Assessment and Plan for all problems:: Metabolic situation improving. Renal dysfunction has stabilized. Continue physical therapy. Patient will need long-term care for acute rehab for deconditioning issues. Insurance precertification pending.
[2019-01-15 08:22] LABS: Eosinophils % 0.1 % (0.1-12.0); Lymphocytes # 0.3 K/mm3 (0.7-4.5); Mean Corpuscular HGB Conc 31.4 g/dL (31.8-35.4); Mean Corpuscular Hemoglobin 26.9 pg (27.0-31.2); Mean Corpuscular Volume 85.9 fl (81-99); Mean Platelet Volume 10.1 fl (7.4-10.4); Monocytes # 0.3 K/mm3 (0.1-1.0); Monocytes % 3.1 % (1.7-9.3); Neutrophils % 93.8 % (37.0-80.0); Platelet Count 238 K/mm3 (142-424); Red Blood Count 3.72 M/mm3 (4.20-5.40); Red Cell Distribution Width 15.7 % (11.5-17.5); White Blood Count 10.6 K/mm3 (4.8-10.8)
[2019-01-15 08:27] LABS: Anion Gap 13.4 mEq/L (5-15); Calcium 7.2 mg/dL (8.5-10.1); Potassium 4.4 mmoL/L (3.5-5.1)
--- NOTE | 2019-01-15 08:40 | Progress Note ---
Internal Medicine - PN: Subj *Date: 01/15/19 *Time: 07:45 Interval history: Patient is sitting up in chair, states "I feel better. I think I could go home." Was able to ambulate in the [place] with PT yesterday Exam Vital signs and Labs for Last 24 Hours: Temp Pulse Resp BP Pulse Ox 97.9 F 90 18 139/84 99 01/15/19 07:37 01/15/19 07:37 01/15/19 07:37 01/15/19 07:37 01/15/19 07:37 Laboratory Results - last 24 hr 01/15/19 08:13: Sodium 140, Potassium 4.4, Chloride 107, Carbon Dioxide 24, Anion Gap 13.4, BUN 29 H, Creatinine 1.57 H, Estimated Creat Clear 38, Estimated GFR 32 L, Est GFR ( Amer) 39 L, Glucose 222 H, Calcium 7.2 L I & O for Last 24 hours: Intake & Output 01/12/19 01/13/19 01/14/19 01/15/19 11:59 11:59 11:59 11:59 Intake Total 240 / 240 3383 / 3383 3104 / 3104 3148 / 3148 Output Total 200 / 200 800 / 800 700 / 700 Balance 240 / 240 3183 / 3183 2304 / 2304 2448 / 2448 Weight 158 lb 169 lb 9 oz 167 lb 3 oz Narrative: Alert and oriented x 3. Rate and rhythm regular. 1+ BLE edema. Lung sounds with wheezes throughout. Abdomen soft and nontender. Skin, pale, warm and dry Assessment and Plan (1) Hypocalcemia Current visit: Yes Status: Acute Category: Medical Code(s): E83.51 - Hypocalcemia (2) Elevated d-dimer Current visit: Yes Status: Acute Category: Medical Code(s): R79.89 - Other specified abnormal findings of blood chemistry (3) Periscapular pain Current visit: Yes Status: Acute Category: Medical Code(s): M89.8X1 - Other specified disorders of bone, shoulder (4) Dyspnea Current visit: Yes Status: Chronic Qualifiers: Dyspnea type: shortness of breath Qualified Code(s): R06.02 - Shortness of breath; R06.00 - Dyspnea, unspecified; R06.01 - Orthopnea Category: Medical Code(s): R06.00 - Dyspnea, unspecified (5) Acute renal failure Current visit: No Status: Acute Category: Medical Code(s): N17.9 - Acute kidney failure, unspecified - Assessment and plan all Dx Assessment and Plan for all problems:: Labs are improving. Calcium remains low, will give one more dose of calcium gluconate IV. Saline lock IV. Continue neb treatments. Continue to work with PT/OT. Insurance approval for bed at [facility] is pending where she will go for short term rehab.
[2019-01-15 10:22] LABS: Lymphocytes % 4 % (10-50); Monocytes % 3 % (2-9); Neutrophils % 93 % (42-76); Total Cells Counted 100
[2019-01-15 10:24] LABS: Hypochromasia 1+
--- NOTE | 2019-01-15 14:36 | Discharge Summary ---
General - General Admission date:: 01/11/19 Discharge date: 01/15/19 HPI HPI: 73-year-old white female with multiple medical problems since November of this year, including coronary disease with stent placement at the beginning of November, C. difficile colitis, and influenza A requiring a couple hospitalizations in November and the first part of December. She was discharged home after doing better, and I followed her in the office, where she was noted to have improving acute knee injury, and continued hypocalcemia. We were treating her as an outpatient she came to the emergency department yesterday evening with sharp left-sided chest pain. EKG unchanged, troponins were unremarkable, she was hypocalcemic but slightly over outpatient labs, and was found to have markedly elevated d-dimer testing. Given her renal insufficiency issue CT scan and was unable performed. She was placed on Lovenox and admit hospital for further testing. This morning she feels better, and has ongoing improvement in dyspnea and no current pain either in the anterior posterior part of her left scapular area is what she complained of on presentation to the ER. Hospital Course Hospital Course: Patient was admitted, and w/u for VTE disease was done - negative venous dopplers and very low probability VQ scan were noted. Posterior chest pain resolved with treatment of hypocalcemia. ARIES continued to improve with hydration and observation. PT recommended ongoing PT.OT eval in a skilled care setting, and she will be transferred to [facility] today to continue the following plan: PT.OT eval. CBC/BMP at next lab draw. Ongoing meds as listed below. Objective Vital signs: Temp Pulse Resp BP Pulse Ox 97.9 F 90 18 139/84 99 01/15/19 07:37 01/15/19 07:37 01/15/19 07:37 01/15/19 07:37 01/15/19 08:00 no acute distress, obese - *Routine HEENT Exam Head: Present: normocephalic Eye: Present: EOMI. Absent: scleral injection - *Routine Neck Exam Present: supple, full ROM. Absent: JVD - *Routine Respiratory Exam Present: rhonchi Comments: in bases - at baseline - *Routine Cardiovascular Exam Present: RRR, Normal S1, murmur Comments: soft murmur as prior - *Routine Abdominal Exam Present: soft, normoactive bowel sounds - *Routine Extremities Exam Present: cyanosis, edema Comments: one plus in ankles - *Routine Skin Exam Present: intact. Absent: cyanosis, erythema - *Routine Neurological Exam Present: alert, oriented X3 globally weak - symmetric Results Labs on day of discharge: Labs from last 24 hours 01/15/19 01/15/19 08:13 08:13 WBC 10.6 RBC 3.72 L Hgb 10.0 L Hct 32.0 L MCV 85.9 MCH 26.9 L MCHC 31.4 L RDW 15.7 Plt Count 238 MPV 10.1 Neut % (Auto) 93.8 H Lymph % (Auto) 3.0 L [place] % (Auto) 3.1 Eos % (Auto) 0.1 Baso % (Auto) 0.0 L Neut # (Auto) 10.0 H Lymph # (Auto) 0.3 L [place] # (Auto) 0.3 Eos # (Auto) 0.0 Baso # (Auto) 0.0 Total Counted 100 Neutrophils % (Manual) 93 H Lymphocytes % (Manual) 4 L Monocytes % (Manual) 3 Platelet Estimate Normal Hypochromasia 1+ Tom Cells 1+ Sodium 140 Potassium 4.4 Chloride 107 Carbon Dioxide 24 Anion Gap 13.4 BUN 29 H Creatinine 1.57 H Estimated Creat Clear 38 Estimated GFR 32 L Est GFR ( Amer) 39 L Glucose 222 H Calcium 7.2 L Preliminary micro results at discharge 01/11/19 16:42 Blood Culture - Preliminary Blood NO GROWTH AFTER 48 HOURS 01/11/19 16:42 Blood Culture - Preliminary Blood NO GROWTH AFTER 48 HOURS DS: Diagnosis - Discharge Diagnosis (1) Hypocalcemia Status: Resolved (2) Elevated d-dimer Status: Resolved (3) Periscapular pain Status: Resolved (4) Dyspnea Status: Chronic (5) Acute renal failure Status: Chronic Discharge Plan - Patient Discharge Instructions ACTIVITY: Continue current activity, Ambulate as tolerated, Up with assistance DIET: continue same diet Patient Instructions: Kidney Failure, DI for Hypocalcemia, DI for Chest Pain - Follow up Plan Follow up with: Stephanie Oleary APRN [Nurse Practitioner] - 01/20/19 Disposition: Xfer [facility] Home Medications: Home Medications Medication Instructions Recorded Confirmed Type aspirin 81 mg tablet,delayed 81 mg PO HS 12/03/17 01/11/19 History release levothyroxine 50 mcg capsule 50 mcg PO DAILY cap 11/06/18 01/11/19 History Atorvastatin Calcium [Lipitor 40mg 40 mg PO DAILY 12/01/18 01/11/19 History Tablet] Carvedilol [Carvedilol 12.5mg Tab] 12.5 mg PO BID 12/01/18 01/11/19 History Fluoxetine HCl [Prozac] 20 mg PO DAILY 12/01/18 01/11/19 History Ticagrelor [Brilinta 90mg Tablet] 90 mg PO BID 12/26/18 01/11/19 History omeprazole 20 mg capsule,delayed 20 mg PO BID #60 cap 12/31/18 01/11/19 Rx release Prescriptions/Medication Reconciliation: Continue aspirin 81 mg tablet,delayed release 81 mg PO HS levothyroxine 50 mcg capsule 50 mcg PO DAILY cap omeprazole 20 mg capsule,delayed release 20 mg PO BID #60 cap Fluoxetine HCl [Prozac] 20 mg PO DAILY Carvedilol [Carvedilol 12.5mg Tab] 12.5 mg PO BID Atorvastatin Calcium [Lipitor 40mg Tablet] 40 mg PO DAILY Ticagrelor [Brilinta 90mg Tablet] 90 mg PO BID
== END 2019-01-15 15:00 ==
LOC: ER 16:28 → 2ND 16:28
PROVIDERS: ADMIT Emergency Medicine; ATTEND Internal Medicine Adolescent Medicine
DX: N17.9 Acute kidney failure, unspecified; R79.89 Other specified abnormal findings of blood chemistry; I25.10 Atherosclerotic heart disease of native coronary artery without angina pectoris; Z88.0 Allergy status to penicillin; Z95.5 Presence of coronary angioplasty implant and graft; E83.51 Hypocalcemia; M89.8X1 Other specified disorders of bone, shoulder; Z88.8 Allergy status to other drugs, medicaments and biological substances; Z79.899 Other long term (current) drug therapy; R06.02 Shortness of breath
CPT/HCPCS: 36415; 71010; 71020; 71045; 71046; 72072; 78582; 80048; 80053; 83605; 84484; 85007; 85025; 85378; 87040; 93005; 93970; 96372; 96374; 96375; 97110; 97116; 97162; 97530; 99284; A9540; A9567; G0378; J2405

== ENCOUNTER → 2019-02-06 11:22 | Outpatient (CLI) | payer MEDICARE, SELFPAY ==
[2019-02-06 14:06] LABS: Basophils % 0.3 % (0.1-2.0); Eosinophils # 0.1 K/mm3 (0.0-0.4); Eosinophils % 0.4 % (0.1-12.0); Hematocrit 37.8 % (37.0-47.0); Hemoglobin 12.2 g/dL (12.2-16.2); Lymphocytes # 2.6 K/mm3 (0.7-4.5); Lymphocytes % 21.1 % (10-50); Mean Corpuscular HGB Conc 32.1 g/dL (31.8-35.4); Mean Corpuscular Hemoglobin 26.8 pg (27.0-31.2); Mean Corpuscular Volume 83.6 fl (81-99); Mean Platelet Volume 8.6 fl (7.4-10.4); Monocytes # 0.9 K/mm3 (0.1-1.0); Monocytes % 7.1 % (1.7-9.3); Neutrophils # 8.9 K/mm3 (1.8-7.8); Neutrophils % 71.2 % (37.0-80.0); Platelet Count 339 K/mm3 (142-424); Red Blood Count 4.53 M/mm3 (4.20-5.40); Red Cell Distribution Width 15.7 % (11.5-17.5); White Blood Count 12.5 K/mm3 (4.8-10.8)
[2019-02-06 14:17] LABS: Alanine Aminotransferase 21 U/L (12-78); Albumin Level 3.4 gm/dL (3.4-5.0); Albumin/Globulin Ratio 0.9 (1.1-1.8); Alkaline Phosphatase 128 U/L (46-116); Anion Gap 17.8 mEq/L (5-15); Aspartate Amino Transferase 17 U/L (15-37); Bilirubin,Total 1.1 mg/dL (0.2-1.0); Blood Urea Nitrogen 33 mg/dL (7-18); Calcium 9.6 mg/dL (8.5-10.1); Carbon Dioxide 25 mmol/L (21.0-32.0); Chloride 100 mmol/L (98-107); Creatinine,Serum 1.95 mg/dL (0.55-1.02); Estimated Glomerular Filt Rate 25 ml/min (>60); GFR (African American) 30 ML/MIN (>60); Globulin 3.6 gm/dl (1.3-3.2); Glucose 145 mg/dL (74-106); Potassium 3.8 mmoL/L (3.5-5.1); Sodium 139 mmol/L (136-145)
== END ==
PROVIDERS: PCP Nurse Practitioner Family; Visit Provider Nurse Practitioner Family
DX: E53.8 Deficiency of other specified B group vitamins (principal); J44.1 Chronic obstructive pulmonary disease with (acute) exacerbation; I10 Essential (primary) hypertension
CPT/HCPCS: 36415; 80053; 85025

== ENCOUNTER → 2019-03-20 11:08 | Outpatient (CLI) | payer MEDICARE, SELFPAY ==
[2019-03-20 13:38] LABS: Basophils % 0.3 % (0.1-2.0); Eosinophils # 0.1 K/mm3 (0.0-0.4); Hematocrit 34.3 % (37.0-47.0); Hemoglobin 11.2 g/dL (12.2-16.2); Lymphocytes # 1.6 K/mm3 (0.7-4.5); Lymphocytes % 23.5 % (10-50); Mean Corpuscular HGB Conc 32.7 g/dL (31.8-35.4); Mean Corpuscular Hemoglobin 27.8 pg (27.0-31.2); Monocytes # 0.4 K/mm3 (0.1-1.0); Monocytes % 5.3 % (1.7-9.3); Neutrophils # 4.8 K/mm3 (1.8-7.8); Neutrophils % 69.8 % (37.0-80.0); Platelet Count 218 K/mm3 (142-424); Red Blood Count 4.04 M/mm3 (4.20-5.40); Red Cell Distribution Width 17.5 % (11.5-17.5); White Blood Count 6.9 K/mm3 (4.8-10.8)
[2019-03-20 13:39] LABS: Alanine Aminotransferase 28 U/L (12-78); Albumin Level 3.5 gm/dL (3.4-5.0); Albumin/Globulin Ratio 1.1 (1.1-1.8); Alkaline Phosphatase 92 U/L (46-116); Anion Gap 15.1 mEq/L (5-15); Aspartate Amino Transferase 10 U/L (15-37); Bilirubin,Total 0.9 mg/dL (0.2-1.0); Blood Urea Nitrogen 24 mg/dL (7-18); Calcium 9.2 mg/dL (8.5-10.1); Carbon Dioxide 27 mmol/L (21.0-32.0); Chloride 106 mmol/L (98-107); Creatinine,Serum 1.54 mg/dL (0.55-1.02); Estimated Glomerular Filt Rate 33 ml/min (>60); GFR (African American) 40 ML/MIN (>60); Globulin 3.3 gm/dl (1.3-3.2); Glucose 114 mg/dL (74-106); Potassium 4.1 mmoL/L (3.5-5.1); Sodium 144 mmol/L (136-145); Thyroid Stimulating Hormone 1.37 uIU/ml (0.358-3.740); Total Protein,Serum 6.8 gm/dL (6.4-8.2)
[2019-03-20 15:10] LABS: Hemoglobin A1C 6.8 % (0.0-7.0)
[2019-03-21 12:41] LABS: Vitamin B12 405 pg/mL (232-1245)
== END ==
PROVIDERS: PCP Nurse Practitioner Family; Visit Provider Nurse Practitioner Family
DX: E53.8 Deficiency of other specified B group vitamins (principal); R73.09 Other abnormal glucose; E03.9 Hypothyroidism, unspecified; Z00.00 Encounter for general adult medical examination without abnormal findings; E78.5 Hyperlipidemia, unspecified; N18.3 Chronic kidney disease, stage 3 (moderate)
CPT/HCPCS: 36415; 80053; 82607; 83036; 84443; 85025

== ENCOUNTER → 2019-07-20 09:44 | Outpatient (CLI) | payer MEDICARE, SELFPAY ==
[2019-07-20 10:26] LABS: Basophils % 0.3 % (0.1-2.0); Eosinophils # 0.1 K/mm3 (0.0-0.4); Eosinophils % 1.6 % (0.1-12.0); Hematocrit 38.3 % (37.0-47.0); Hemoglobin 12.1 g/dL (12.2-16.2); Lymphocytes # 1.7 K/mm3 (0.7-4.5); Mean Corpuscular HGB Conc 31.6 g/dL (31.8-35.4); Mean Corpuscular Hemoglobin 26.3 pg (27.0-31.2); Mean Corpuscular Volume 83.5 fl (81-99); Mean Platelet Volume 8.2 fl (7.4-10.4); Monocytes # 0.4 K/mm3 (0.1-1.0); Monocytes % 5.7 % (1.7-9.3); Neutrophils # 4.6 K/mm3 (1.8-7.8); Neutrophils % 67.3 % (37.0-80.0); Platelet Count 263 K/mm3 (142-424); Red Blood Count 4.58 M/mm3 (4.20-5.40); Red Cell Distribution Width 15.6 % (11.5-17.5); White Blood Count 6.8 K/mm3 (4.8-10.8)
[2019-07-20 11:26] LABS: Alanine Aminotransferase 20 U/L (12-78); Albumin Level 3.6 gm/dL (3.4-5.0); Alkaline Phosphatase 96 U/L (46-116); Anion Gap 14.2 mEq/L (5-15); Aspartate Amino Transferase 12 U/L (15-37); Bilirubin,Direct 0.2 mg/dL (0.0-0.2); Bilirubin,Indirect 0.9 mg/dL (0.0-0.9); Bilirubin,Total 1.1 mg/dL (0.2-1.0); Blood Urea Nitrogen 19 mg/dL (7-18); Calcium 9.5 mg/dL (8.5-10.1); Carbon Dioxide 27 mmol/L (21.0-32.0); Chloride 104 mmol/L (98-107); Chol/HDL Ratio 3.4 (1-3.5); Cholesterol 169 mg/dL (140-200); Creatinine,Serum 1.38 mg/dL (0.55-1.02); Estimated Glomerular Filt Rate 37 ml/min (>60); GFR (African American) 45 ML/MIN (>60); Glucose 129 mg/dL (74-106); HDL Cholesterol 50 mg/dL (29-89); LDL Cholesterol 74 mg/dL (0-130); Potassium 4.2 mmoL/L (3.5-5.1); Sodium 141 mmol/L (136-145); Total Protein,Serum 6.7 gm/dL (6.4-8.2); Triglycerides 226 mg/dL (30-200); VLDL Cholesterol 45 mg/dL (0-40)
== END ==
PROVIDERS: Visit Provider Nurse Practitioner Family
DX: I25.118 Atherosclerotic heart disease of native coronary artery with other forms of angina pectoris (principal); I11.9 Hypertensive heart disease without heart failure; I42.9 Cardiomyopathy, unspecified; I50.22 Chronic systolic (congestive) heart failure; R06.02 Shortness of breath; R94.31 Abnormal electrocardiogram [ECG] [EKG]; G47.33 Obstructive sleep apnea (adult) (pediatric)
CPT/HCPCS: 36415; 80048; 80061; 80076; 85025

== ENCOUNTER → 2019-07-23 10:00 | Outpatient (CLI) | payer MEDICARE, SELFPAY | PROVIDERS: PCP Nurse Practitioner Family; Visit Provider Nurse Practitioner Family | DX: I25.118 Atherosclerotic heart disease of native coronary artery with other forms of angina pectoris; I42.9 Cardiomyopathy, unspecified; R06.02 Shortness of breath; I11.9 Hypertensive heart disease without heart failure; I50.22 Chronic systolic (congestive) heart failure; R94.31 Abnormal electrocardiogram [ECG] [EKG]; G47.33 Obstructive sleep apnea (adult) (pediatric) | CPT/HCPCS: 93306 ==

== ENCOUNTER → 2019-08-21 09:15 | Outpatient (CLI) | payer MEDICARE, SELFPAY ==
[2019-08-21 14:17] LABS: Anion Gap 15.8 mEq/L (5-15); Blood Urea Nitrogen 16 mg/dL (7-18); Calcium 9.5 mg/dL (8.5-10.1); Carbon Dioxide 24 mmol/L (21.0-32.0); Chloride 106 mmol/L (98-107); Creatinine,Serum 1.28 mg/dL (0.55-1.02); Estimated Glomerular Filt Rate 41 ml/min (>60); GFR (African American) 49 ML/MIN (>60); Glucose 116 mg/dL (74-106); Potassium 3.8 mmoL/L (3.5-5.1); Sodium 142 mmol/L (136-145)
[2019-08-21 14:50] LABS: Basophils % 0.2 % (0.1-2.0); Eosinophils # 0.1 K/mm3 (0.0-0.4); Eosinophils % 1.3 % (0.1-12.0); Hematocrit 34.2 % (37.0-47.0); Hemoglobin 10.4 g/dL (12.2-16.2); Lymphocytes # 1.4 K/mm3 (0.7-4.5); Lymphocytes % 18.9 % (10-50); Mean Corpuscular HGB Conc 30.6 g/dL (31.8-35.4); Mean Corpuscular Hemoglobin 25.2 pg (27.0-31.2); Mean Corpuscular Volume 82.5 fl (81-99); Mean Platelet Volume 9.7 fl (7.4-10.4); Monocytes # 0.5 K/mm3 (0.1-1.0); Neutrophils # 5.5 K/mm3 (1.8-7.8); Neutrophils % 73.6 % (37.0-80.0); Platelet Count 143 K/mm3 (142-424); Red Blood Count 4.14 M/mm3 (4.20-5.40); Red Cell Distribution Width 17.3 % (11.5-17.5); White Blood Count 7.4 K/mm3 (4.8-10.8)
== END ==
PROVIDERS: PCP Internal Medicine Adolescent Medicine; Visit Provider Internal Medicine
DX: Z95.0 Presence of cardiac pacemaker (principal); Z79.01 Long term (current) use of anticoagulants; Z51.81 Encounter for therapeutic drug level monitoring
CPT/HCPCS: 36415; 80048; 85025

== ENCOUNTER → 2019-09-03 09:45 | Outpatient (CLI) | payer MEDICARE, SELFPAY ==
[2019-09-03 11:11] LABS: Anion Gap 16.6 mEq/L (5-15); Blood Urea Nitrogen 20 mg/dL (7-18); Calcium 9.3 mg/dL (8.5-10.1); Carbon Dioxide 25 mmol/L (21.0-32.0); Chloride 105 mmol/L (98-107); Creatinine,Serum 1.41 mg/dL (0.55-1.02); Estimated Glomerular Filt Rate 36 ml/min (>60); GFR (African American) 44 ML/MIN (>60); Glucose 97 mg/dL (74-106); Potassium 4.6 mmoL/L (3.5-5.1); Sodium 142 mmol/L (136-145)
== END ==
PROVIDERS: Visit Provider Physician Assistant
DX: I42.9 Cardiomyopathy, unspecified (principal)
CPT/HCPCS: 36415; 80048

== ENCOUNTER → 2019-10-12 09:31 | Outpatient (CLI) | payer MEDICARE, SELFPAY ==
[2019-10-12 14:13] LABS: Anion Gap 14.1 mEq/L (5-15); Blood Urea Nitrogen 33 mg/dL (7-18); Calcium 9.2 mg/dL (8.5-10.1); Carbon Dioxide 26 mmol/L (21.0-32.0); Chloride 106 mmol/L (98-107); Creatinine,Serum 1.45 mg/dL (0.55-1.02); Estimated Glomerular Filt Rate 35 ml/min (>60); GFR (African American) 43 ML/MIN (>60); Glucose 110 mg/dL (74-106); Potassium 4.1 mmoL/L (3.5-5.1); Sodium 142 mmol/L (136-145)
== END ==
PROVIDERS: Visit Provider Internal Medicine Cardiovascular Disease
DX: E78.2 Mixed hyperlipidemia (principal); G47.33 Obstructive sleep apnea (adult) (pediatric); I11.0 Hypertensive heart disease with heart failure; I25.10 Atherosclerotic heart disease of native coronary artery without angina pectoris; I25.5 Ischemic cardiomyopathy; I50.20 Unspecified systolic (congestive) heart failure; I50.22 Chronic systolic (congestive) heart failure; R94.31 Abnormal electrocardiogram [ECG] [EKG]
CPT/HCPCS: 36415; 80048

== ENCOUNTER → 2020-01-29 12:20 | Outpatient (CLI) | payer MEDICARE, SELFPAY ==
[2020-01-29 15:07] LABS: Alanine Aminotransferase 14 U/L (12-78); Alkaline Phosphatase 103 U/L (38-126); Aspartate Amino Transferase 28 U/L (14-36); Bilirubin,Direct 0.4 mg/dl (0.0-0.4); Bilirubin,Indirect 0.3 mg/dL (0.0-0.9); Bilirubin,Total 0.7 mg/dl (0.2-1.3); Bilirubin,Unconjugated 0.3 mg/dL (0.0-1.1); Chol/HDL Ratio 3.4 (1-3.5); Cholesterol 205 mg/dl (140-200); HDL Cholesterol 60 mg/dl (40-60); Total Protein,Serum 6.7 g/dl (6.3-8.2); Triglycerides 154 mg/dl (30-150); VLDL Cholesterol 31 mg/dL (0-40)
[2020-01-29 15:19] LABS: Direct LDL Cholesterol 104.27 mg/dL (100-129)
== END ==
PROVIDERS: Visit Provider Urology
DX: E78.2 Mixed hyperlipidemia (principal); I11.0 Hypertensive heart disease with heart failure; I25.10 Atherosclerotic heart disease of native coronary artery without angina pectoris
CPT/HCPCS: 36415; 80061; 80076

== ENCOUNTER → 2020-02-23 13:07 | Outpatient (CLI) | payer MEDICARE, SELFPAY ==
--- NOTE | 2020-02-23 13:26 | XR_ITS ---
PROCEDURE: XR CHEST 2V CLINICAL HISTORY: COUGH, COPD COMPARISON: CXR1VP XR chest portable from 01/11/2019 CXR2V XR chest 2V from 01/12/2019 XR CHEST PORTABLE from 08/19/2019 FINDINGS: There is cardiomegaly without CHF. Left subclavian approach pacemaker remains in place with electrodes projecting over right atrium and right ventricle. The lungs are clear without infiltrates, suspicious nodules, or pleural effusions. No acute bony abnormalities. There are old healed fractures of the posterior right 6th 7th 8th and 9th ribs. IMPRESSION: No acute findings. Dictated by: Rickie John 02/23/2020 13:42 Electronically signed by Rickie John in [place] 02/23/2020 13:42
[2020-02-23 13:32] LABS: Basophils % 0.2 % (0.1-2.0); Eosinophils # 0.2 K/mm3 (0.0-0.4); Eosinophils % 1.5 % (0.1-12.0); Hematocrit 33.4 % (37.0-47.0); Hemoglobin 10.8 g/dL (12.2-16.2); Lymphocytes # 1.5 K/mm3 (0.7-4.5); Lymphocytes % 13.9 % (10-50); Mean Corpuscular HGB Conc 32.3 g/dL (31.8-35.4); Mean Corpuscular Hemoglobin 27.1 pg (27.0-31.2); Mean Corpuscular Volume 83.9 fl (81-99); Mean Platelet Volume 8.9 fl (7.4-10.4); Monocytes # 0.6 K/mm3 (0.1-1.0); Monocytes % 5.5 % (1.7-9.3); Neutrophils # 8.8 K/mm3 (1.8-7.8); Neutrophils % 78.9 % (37.0-80.0); Platelet Count 249 K/mm3 (142-424); Red Blood Count 3.98 M/mm3 (4.20-5.40); Red Cell Distribution Width 15.5 % (11.5-17.5); White Blood Count 11.1 K/mm3 (4.8-10.8)
[2020-02-23 14:49] LABS: Chloride 105 mmol/L (98-107)
[2020-02-23 14:50] LABS: Potassium 5.7 mmoL/L (3.5-5.1); Sodium 138 mmol/L (136-145)
[2020-02-23 14:52] LABS: Alanine Aminotransferase 17 U/L (12-78); Albumin Level 3.7 g/dl (3.5-5.0); Albumin/Globulin Ratio 1.4 (1.1-1.8); Alkaline Phosphatase 121 U/L (38-126); Anion Gap 10.7 mEq/L (5-15); Aspartate Amino Transferase 25 U/L (14-36); Bilirubin,Total 0.8 mg/dl (0.2-1.3); Blood Urea Nitrogen 27 mg/dl (7-17); Carbon Dioxide 28 mmol/L (22.0-30.0); Estimated Glomerular Filt Rate 26 ml/min (>60); GFR (African American) 31 ML/MIN (>60); Globulin 2.6 g/dL (1.3-3.2); Total Protein,Serum 6.3 g/dl (6.3-8.2)
[2020-02-23 14:58] LABS: Calcium 9.6 mg/dl (8.4-10.2)
[2020-02-23 15:20] LABS: Glucose 107 mg/dl (74-100)
== END ==
PROVIDERS: PCP Internal Medicine Adolescent Medicine; Visit Provider Internal Medicine Adolescent Medicine
DX: R05 Cough (principal); J44.1 Chronic obstructive pulmonary disease with (acute) exacerbation
CPT/HCPCS: 36415; 71046; 80053; 85025

== ENCOUNTER → 2020-05-25 10:41 | Outpatient (CLI) | payer MEDICARE, SELFPAY ==
--- NOTE | 2020-05-25 11:21 | XR_ITS ---
PROCEDURE: XR FOOT RT MIN 3V CLINICAL INDICATION: RT FOOT PAIN,H/O GOUT, COMPARISON: No exams were available for comparison FINDINGS: No fracture or dislocation. No lytic or blastic change. There is normal mineralization. There are mild osteoarthritic changes the 1st metatarsophalangeal joint and talonavicular joint Other findings:None. IMPRESSION: No acute findings. Dictated by: Ebenezer Schofield MD 05/25/2020 14:20 Electronically signed by Ebenezer Schofield MD in [place] 05/25/2020 14:22
--- NOTE | 2020-05-25 11:21 | XR_ITS ---
PROCEDURE: XR FOOT LT MIN 3V CLINICAL INDICATION: LT FOOT PAIN,H/O OF GOUT COMPARISON: FTR3 FOOT-RT-3 VIEWS from 10/31/2017 [id number] XR foot LT min 3V from 12/01/2018 FINDINGS: There are osteoarthritic changes at the 1st metatarsophalangeal joint with bony hypertrophic changes at that region. There is some soft tissue swelling medially at that area with faint increased density of the soft tissues. Osteoarthritis also noted at the talonavicular and navicular cuneiform and tarsal metatarsal junction dorsally. No definite bony lytic process evident. IMPRESSION: Degenerative changes Dictated by: Ebenezer Schofield MD 05/25/2020 14:08 Electronically signed by Ebenezer Schofield MD in [place] 05/25/2020 14:08
[2020-05-25 13:46] LABS: Basophils # 0.2 K/mm3 (0-0.2); Basophils % 1.7 % (0.1-2.0); Eosinophils # 0.1 K/mm3 (0.0-0.4); Eosinophils % 1.2 % (0.1-12.0); Hematocrit 34.6 % (37.0-47.0); Hemoglobin 10.5 g/dL (12.2-16.2); Lymphocytes # 1.5 K/mm3 (0.7-4.5); Lymphocytes % 15.4 % (10-50); Mean Corpuscular HGB Conc 30.4 g/dL (31.8-35.4); Mean Corpuscular Hemoglobin 28.2 pg (27.0-31.2); Mean Corpuscular Volume 92.6 fl (81-99); Mean Platelet Volume 11.5 fl (7.4-10.4); Monocytes # 0.5 K/mm3 (0.1-1.0); Monocytes % 4.6 % (1.7-9.3); Neutrophils # 7.5 K/mm3 (1.8-7.8); Platelet Count 287 K/mm3 (142-424); Red Blood Count 3.74 M/mm3 (4.20-5.40); Red Cell Distribution Width 19.4 % (11.5-17.5); White Blood Count 9.7 K/mm3 (4.8-10.8)
[2020-05-25 13:59] LABS: Chloride 112 mmol/L (98-107); Potassium 4.8 mmoL/L (3.5-5.1); Sodium 139 mmol/L (136-145)
[2020-05-25 14:01] LABS: Blood Urea Nitrogen 43 mg/dl (7-17); Estimated Glomerular Filt Rate 23 ml/min (>60); GFR (African American) 28 ML/MIN (>60)
[2020-05-25 14:02] LABS: Anion Gap 11.8 mEq/L (5-15); Calcium 9.5 mg/dl (8.4-10.2); Carbon Dioxide 20 mmol/L (22.0-30.0); Glucose 124 mg/dl (74-100); Uric Acid 13.2 mg/dl (2.5-6.2)
[2020-05-25 14:09] LABS: C-Reactive Protein 16.1 mg/L (0-4)
[2020-05-25 14:33] LABS: Thyroid Stimulating Hormone 1.54 uIU/mL (0.465-4.68)
[2020-05-25 15:09] LABS: Erythrocyte Sedimentation Rate > 140 mm/hr (0-30)
[2020-05-27 17:15] LABS: RA Latex Turbid. <10.0 IU/mL (0.0-13.9)
== END ==
LOC: LAB.CARL 10:42 → RAD 11:15
PROVIDERS: PCP Nurse Practitioner Family; Visit Provider Nurse Practitioner Family
DX: M79.672 Pain in left foot (principal); M79.671 Pain in right foot; E03.9 Hypothyroidism, unspecified; Z87.39 Personal history of other diseases of the musculoskeletal system and connective tissue
CPT/HCPCS: 36415; 73630; 80048; 84443; 84550; 85025; 85651; 86140; 86431

== ENCOUNTER → 2020-06-15 11:01 | Outpatient (CLI) | payer MEDICARE, SELFPAY ==
[2020-06-15 14:27] LABS: Anion Gap 11.3 mEq/L (5-15); Blood Urea Nitrogen 31 mg/dl (7-17); Calcium 9.4 mg/dl (8.4-10.2); Carbon Dioxide 28 mmol/L (22.0-30.0); Chloride 105 mmol/L (98-107); Estimated Glomerular Filt Rate 44 ml/min (>60); GFR (African American) 53 ML/MIN (>60); Glucose 106 mg/dl (74-100); Potassium 4.3 mmoL/L (3.5-5.1); Sodium 140 mmol/L (136-145); Uric Acid 8.2 mg/dl (2.5-6.2)
[2020-06-15 14:43] LABS: Erythrocyte Sedimentation Rate 24 mm/hr (0-30)
== END ==
PROVIDERS: Visit Provider Nurse Practitioner Family
DX: M10.371 Gout due to renal impairment, right ankle and foot (principal); N18.3 Chronic kidney disease, stage 3 (moderate); R70.0 Elevated erythrocyte sedimentation rate
CPT/HCPCS: 36415; 80048; 84550; 85651

== ENCOUNTER 2020-07-09 10:56 | Observation (INO) | payer MEDICARE, SELFPAY ==
[2020-07-09] VITALS (14 sets, daily range): BP systolic 90–132; BP diastolic 54–68; PULSE 76–97; RESP 14–20; TEMP 36.7–37.6; O2SAT 93–98; BMI 25.4; BMI 24.6
--- NOTE | 2020-07-09 11:00 | CT_ITS ---
PROCEDURE: CT ABDOMEN PELVIS WO CON CLINICAL INDICATION: nausea/vomiting COMPARISON: No exams were available for comparison TECHNIQUE: Axial images obtained with sagittal and coronal reformats. All CT scans at the facility use one or more dose reduction, viz: automated exposure control, ma/kV adjustment per patient size (including targeted exams where dose is matched to indication, i.e. head), or iterative reconstruction technique. FINDINGS: Lower thorax: The lower lung zamora are clear, there is no pleural fluid. There is moderate cardiomegaly with left ventricular prominence. There are cardiac pacemaker electrodes noted in satisfactory position. ABDOMEN: Liver: No masses or biliary dilatation. Gallbladder: Post cholecystectomy Pancreas: No masses or peripancreatic fluid collections. Spleen: unremarkable Adrenals: The spleen is normal size, there are couple of calcified granulomata. Kidneys/ureters: The kidneys are normal in size, there is anterior posterior axis of the right kidney and normal variation. There are no calculi and there is no obstructive uropathy. ABDOMEN & PELVIS: Stomach bowel: The stomach and duodenal sweep appear normal. The small bowel is normal. The appendix appears to be normal in caliber likely containing small amount of inspissated barium from previous contrast study. There are no pericecal inflammatory changes. There is a moderate amount stool and gas seen throughout the colon. There is mild elongation of the sigmoid colon. Peritoneum: There is a small umbilical hernia containing fat only. Lymph nodes: No enlarged lymph nodes apparent. Vasculature: There is diffuse arthrosclerotic calcification of the abdominal aorta but there is no aneurysm. Bones: There are mild multilevel degenerate changes of the lower thoracic and lower lumbar spine. PELVIS: Reproductive: The patient is post hysterectomy Bladder: Urinary bladder is partially filled with urine and appears normal, there is no free fluid in the pelvis. Appendix: See discussion above regarding the appendix IMPRESSION: Chronic and degenerate changes as described above, I see no acute abdominal or pelvic pathology. Dictated by: Dr. Erick Vega MD 07/09/2020 12:28 Dr. Erick Vega MD in [place] 07/09/2020 12:28
--- NOTE | 2020-07-09 11:03 | HMH.EDGENADL ---
ED Disposition Clinical Impression: Vomiting and diarrhea, Dehydration, Hyperglycemia Gout attack Qualifiers: Gout site: multiple sites Gout etiology: unspecified cause Qualified Code(s): M10.9 - Gout, unspecified Leukocytosis Qualifiers: Leukocytosis type: unspecified Qualified Code(s): D72.829 - Elevated white blood cell count, unspecified Disposition: Admitted as Observation Condition on Discharge: Fair Referrals: PCP,No [Primary Care Provider] - - Critical Care Critical Care Time: No Attestation: On 07/09/20, the high probability of a clinically significant, sudden or life threatening deterioration of the following system(s) required my full and direct attention, intervention and personal management. The time I documented below is in addition to time spent performing reported procedures but includes the following listed in this critical care notation. Medical Decision Making - Augustine Inquiry Pt receiving controlled substance: Yes Augustine was queried for this patient: No Reason not queried -: Emergent pt cond-no time Risks and benefits of using a controlled substance: were not discussed with pt by me Vital Signs: 07/09/20 10:57 07/09/20 11:28 07/09/20 11:30 Temperature 99.6 F Temperature Source Oral Pulse Rate [Left Radial] 97 H 96 H 92 H Respiratory Rate 16 20 20 Blood Pressure [Right Arm] 125/59 L 132/65 132/65 Blood Pressure Mean [Right Arm] 81 87 87 Blood Pressure Source [Right Arm] Automatic Cuff Blood Pressure Position [Right Arm] Sitting Sitting Sitting 02 Sat by Pulse Oximetry 98 97 96 Oxygen Delivery Method Room Air Room Air Room Air 07/09/20 11:40 07/09/20 12:00 07/09/20 12:10 Temperature Temperature Source Pulse Rate [Left Radial] 90 83 90 Respiratory Rate 16 20 Blood Pressure [Right Arm] 115/64 112/63 112/65 Blood Pressure Mean [Right Arm] 81 79 80 Blood Pressure Source [Right Arm] Automatic Cuff Blood Pressure Position [Right Arm] Sitting Sitting Sitting 02 Sat by Pulse Oximetry 97 95 96 Oxygen Delivery Method Room Air Room Air Room Air 07/09/20 12:30 07/09/20 13:00 Temperature Temperature Source Pulse Rate [Left Radial] 88 88 Respiratory Rate 20 20 Blood Pressure [Right Arm] 90/54 L 93/54 L Blood Pressure Mean [Right Arm] 66 67 Blood Pressure Source [Right Arm] Automatic Cuff Automatic Cuff Blood Pressure Position [Right Arm] Supine Supine 02 Sat by Pulse Oximetry 94 L 93 L Oxygen Delivery Method Room Air Room Air - Lab Data Lab Results 07/09/20 10:59: WBC 19.6 H, RBC 3.79 L, Hgb 11.0 L, Hct 33.4 L, MCV 88.2, MCH 29.1, MCHC 32.9, RDW 17.9 H, Plt Count 179, MPV 9.7, Neut % (Auto) 88.5 H, Lymph % (Auto) 6.3 L, Moody % (Auto) 4.8, Eos % (Auto) 0.2, Baso % (Auto) 0.1, Neut # (Auto) 17.4 H, Lymph # (Auto) 1.2, [place] # (Auto) 1.0, Eos # (Auto) 0.0, Baso # (Auto) 0.0, Total Counted 100, Neutrophils % (Manual) 88 H, Lymphocytes % (Manual) 9 L, Monocytes % (Manual) 3, Platelet Estimate Normal, RBC Morphology Normal 07/09/20 10:59: Sodium 136, Potassium 3.9, Chloride 101, Carbon Dioxide 27, Anion Gap 11.9, BUN 35 H, Creatinine 1.80 H, Estimated Creat Clear 25, Estimated GFR 27 L, Est GFR ( Amer) 33 L, Glucose 206 H, Calcium 9.6, Total Bilirubin 1.5 H, AST 24, ALT 20, Alkaline Phosphatase 119, Troponin I 0.02, Total Protein 6.6, Albumin 3.6, Globulin 3.0, Albumin/Globulin Ratio 1.2, Amylase 126 H, Lipase 67, TSH 1.97 07/09/20 11:05: Urine Color Yellow, Urine Appearance Clear, Urine pH 5.5, Ur Specific Marion 1.020, Urine Protein Negative, Urine Glucose (UA) Negative, Urine Ketones Negative, Urine Blood Negative, Urine Nitrate Negative, Urine Bilirubin Negative, Urine Urobilinogen 0.2, Ur Leukocyte Esterase Negative, Urine RBC None, Urine WBC 3-5, Ur Squamous Epith Cells Occasional, Urine Bacteria 1+ 07/09/20 11:40: Chlamy pneumoniae PCR Not detected, Adenovirus (PCR) Not detected, B. pertussis DNA (PCR) Not detected, Coronavirus OC43 (PCR) Not detected, Coronavirus HKU1 (
[2020-07-09 11:21] LABS: Microscopic, Urine URINE MICROSCOPIC (MICROSCOPIC)
[2020-07-09 11:22] LABS: Appearance,Urine CLEAR (Clear); Bilirubin,Urine Negative (Negative); Blood, Urine Negative (Negative); Color,Urine YELLOW (Yellow); Glucose,Urine (UA) Negative (Negative); Ketones,Urine Negative (Negative); Leukocyte Esterase,Urine Negative (Negative); Nitrate,Urine Negative (Negative); PH,Urine 5.5 (5.0-8.5); Protein,Urine Negative (Negative); Urobilinogen,Urine 0.2 EU/dl (0.2)
--- NOTE | 2020-07-09 11:23 | ECG_ITS ---
APPROVED REPORT Exam: Resting ECG HR:91 bpm ECG Measurements Heart Rate 91 AXES WV 148 P 47 QRSd 136 QRS 239 QT 418 T 33 QTc 514 <Conclusion> Electronic ventricular pacemaker Electronically signed by : Familia Dumont, 07/09/2020 20:54:37
[2020-07-09 11:25] LABS: Chloride 101 mmol/L (98-107); Potassium 3.9 mmoL/L (3.5-5.1); Sodium 136 mmol/L (136-145)
[2020-07-09 11:26] LABS: Basophils % 0.1 % (0.1-2.0); Eosinophils % 0.2 % (0.1-12.0); Hematocrit 33.4 % (37.0-47.0); Lymphocytes # 1.2 K/mm3 (0.7-4.5); Lymphocytes % 6.3 % (10-50); Mean Corpuscular HGB Conc 32.9 g/dL (31.8-35.4); Mean Corpuscular Hemoglobin 29.1 pg (27.0-31.2); Mean Corpuscular Volume 88.2 fl (81-99); Mean Platelet Volume 9.7 fl (7.4-10.4); Monocytes % 4.8 % (1.7-9.3); Neutrophils # 17.4 K/mm3 (1.8-7.8); Neutrophils % 88.5 % (37.0-80.0); Platelet Count 179 K/mm3 (142-424); Red Blood Count 3.79 M/mm3 (4.20-5.40); Red Cell Distribution Width 17.9 % (11.5-17.5); White Blood Count 19.6 K/mm3 (4.8-10.8)
[2020-07-09 11:27] LABS: Amylase 126 U/L (30-110); Blood Urea Nitrogen 35 mg/dl (7-17); Creatinine Clearance Estimated 25 mL/min (50-200); Estimated Glomerular Filt Rate 27 ml/min (>60); GFR (African American) 33 ML/MIN (>60)
[2020-07-09 11:28] LABS: Alanine Aminotransferase 20 U/L (12-78); Albumin Level 3.6 g/dl (3.5-5.0); Albumin/Globulin Ratio 1.2 (1.1-1.8); Alkaline Phosphatase 119 U/L (38-126); Anion Gap 11.9 mEq/L (5-15); Aspartate Amino Transferase 24 U/L (14-36); Bilirubin,Total 1.5 mg/dl (0.2-1.3); Calcium 9.6 mg/dl (8.4-10.2); Carbon Dioxide 27 mmol/L (22.0-30.0); Glucose 206 mg/dl (74-100); Lipase 67 U/L (23-300); Total Protein,Serum 6.6 g/dl (6.3-8.2)
[2020-07-09 11:29] LABS: MANUAL DIFFERENTIAL MANUAL DIFFERENTIAL (MANUAL DIFF)
[2020-07-09 11:32] LABS: Bacteria,Urine 1+ /lpf; Squamous Epithelial Cell,Urine Occasional #/hpf (0-5)
[2020-07-09 11:40] LABS: Troponin I 0.02 ng/ml (0.00-0.034)
--- NOTE | 2020-07-09 11:42 | PC.NURSE ---
CT IS GONNA BE WITHOUT DUE TO BLOOD WORK
[2020-07-09 11:46] LABS: Lymphocytes % 9 % (10-50); Monocytes % 3 % (2-9); Neutrophils % 88 % (42-76); Platelet Estimate Normal; RBC Morphology Normal; Total Cells Counted 100
--- NOTE | 2020-07-09 11:48 | PC.NURSE ---
PT GOING TO CT
[2020-07-09 11:49] LABS: Adenovirus,PCR Not Detected (NotDetected); Bordetella Pertussis Not Detected (NotDetected); Chlamydophila Pneumoniae, PCR Not Detected (NotDetected); Coronavirus 19, PCR Not Detected (NotDetected); Coronavirus 229E Not Detected (NotDetected); Coronavirus NL63 Not Detected (NotDetected); Coronavirus OC43 Not Detected (NotDetected); Coronovirus HKU1,PCR Not Detected (NotDetected); Human Metapneumovirus Not Detected (NotDetected); Influenza A, PCR Not Detected (NotDetected); Influenza AH1, 2009 Not Detected (NotDetected); Influenza AH1, PCR Not Detected (NotDetected); Influenza AH3,PCR Not Detected (NotDetected); Influenza B, PCR Not Detected (NotDetected); Mycoplasma Pneumoniae, PCR Not Detected (NotDetected); Parainfluenza 1, PCR Not Detected (NotDetected); Parainfluenza 2, PCR Not Detected (NotDetected); Parainfluenza 3, PCR Not Detected (NotDetected); Parainfluenza 4, PCR Not Detected (NotDetected); Respiratory Syncytial Virus Not Detected (NotDetected); Rhinovirus/Enterovirus Not Detected (NotDetected)
[2020-07-09 11:59] LABS: Thyroid Stimulating Hormone 1.97 uIU/mL (0.465-4.68)
--- NOTE | 2020-07-09 13:08 | PC.NURSE ---
dr norm tony [facility]
--- NOTE | 2020-07-09 13:13 | PC.NURSE ---
DR RAMIREZ SPEAKING TO DR WATSON HE HAS AGREED TO ADMIT PT
--- NOTE | 2020-07-09 14:39 | PC.NURSE ---
PT GONE UPSTAIRS TO MED SURG FLOOR
--- NOTE | 2020-07-09 14:53 | PC.NURSE ---
I spoke with patients daughter Emily about patients home meds, she states she will bring them in when she comes
[2020-07-09 14:59] LABS: Uric Acid 8.7 mg/dl (2.5-6.2)
[2020-07-09 15:04] LABS: C-Reactive Protein 168.1 mg/L (0-4)
[2020-07-09 15:16] LABS: Erythrocyte Sedimentation Rate > 140 mm/hr (0-30)
[2020-07-09 16:28] LABS: POC Glucose,Bedside 204 (70-110)
--- NOTE | 2020-07-09 18:52 | PC.NURSE ---
PATIENT A&O X4, LUNGS CLEAR, PULSES EQUAL. PATIENT CALLED OUT TO USE RESTROOM, THIS RN ENCOURAGED PATIENT TO USE A BEDPAN, PATIENT STATED THAT SHE DID NOT THINK SHE WILL BE ABLE TO VOID IN IT. THIS RN ALONG WITH PATIENT'S DAUGHTER HELPED PATIENT TO USE BEDSIDE COMMODE, PATIENT IS IN EXTREME PAIN IN RIGHT KNEE, EDEMA AND BRUISING NOTED. PATIENT WAS A 2X ASSIST. THIS RN ENCOURAGED PATIENT TO USE BEDPAN FOR TONITE. PATIENT AGREED. NO OTHER CONCERNS AT THIS TIME.
[2020-07-09 21:25] LABS: POC Glucose,Bedside 252 (70-110)
--- NOTE | 2020-07-10 02:28 | PC.NURSE ---
A&OX4. PT HAS TOLERATED ROOM AIR WELL THROUGHOUT SHIFT. RESPIRATIONS REGULAR AND UNLABORED. NO COUGH NOTED. HEART RATE REGULAR. +2 PULSES NOTED THROUGHOUT. DIMINIISHED LUNG SOUNDS NOTED IN BLL. NO EDEMA NOTED EXCEPT IN R KNEE. BRUISING NOTED TO BILATERAL ARMS. HAND GIFT SHOP ASSISTANT EQUAL. ACTIVE BOWEL SOUNDS HEARD IN ALL 4 QUADRANTS. SOFT AND NONTENDER ABDOMEN. NO BM THUS FAR. PT MOVES INDEPENDENTLY IN BED. NO COMPLAINTS OF N/V/D THUS FAR. PT HAS REMAINED IN CONTACT ENTERIC PRECAUTIONS THROUGHOUT SHIFT IN CASE OF CDIFF. WILL TRY TO OBTAIN STOOL SAMPLE IF PT GOES THIS SHIFT. PT HAS RESTED WELL THROUGHOUT SHIFT. PT HAS REMAINED AFEBRILE. NS INFUSING AT 75ML/HR. PT IS CURRENTLY LYING IN BED WITH CALL LIGHT WITHIN REACH. BED IN LOWEST POSITION. VSS. NO CONCERNS AT THIS TIME. WILL CONTINUE TO MONITOR.
[2020-07-10 03:55] VITALS: BP 122/65; PULSE 82; RESP 18; TEMP 37.1; O2SAT 95
[2020-07-10 05:00] VITALS: BMI 22.9
[2020-07-10 06:13] LABS: POC Glucose,Bedside 154 (70-110)
[2020-07-10 07:31] VITALS: BP 108/53; PULSE 75; RESP 18; TEMP 36.5; O2SAT 98
[2020-07-10 07:31] LABS: Basophils % 0.1 % (0.1-2.0); Eosinophils # 0.1 K/mm3 (0.0-0.4); Eosinophils % 0.4 % (0.1-12.0); Hematocrit 28.5 % (37.0-47.0); Lymphocytes # 0.6 K/mm3 (0.7-4.5); Lymphocytes % 3.3 % (10-50); Mean Corpuscular HGB Conc 31.7 g/dL (31.8-35.4); Mean Corpuscular Volume 88.4 fl (81-99); Mean Platelet Volume 9.6 fl (7.4-10.4); Monocytes # 0.5 K/mm3 (0.1-1.0); Monocytes % 2.7 % (1.7-9.3); Neutrophils % 93.6 % (37.0-80.0); Platelet Count 153 K/mm3 (142-424); Red Blood Count 3.23 M/mm3 (4.20-5.40); Red Cell Distribution Width 17.7 % (11.5-17.5); White Blood Count 19.2 K/mm3 (4.8-10.8)
[2020-07-10 07:32] LABS: MANUAL DIFFERENTIAL MANUAL DIFFERENTIAL (MANUAL DIFF)
[2020-07-10 07:34] LABS: Anion Gap 11.4 mEq/L (5-15); Blood Urea Nitrogen 40 mg/dl (7-17); Carbon Dioxide 24 mmol/L (22.0-30.0); Chloride 103 mmol/L (98-107); Creatinine Clearance Estimated 22 mL/min (50-200); Estimated Glomerular Filt Rate 26 ml/min (>60); GFR (African American) 31 ML/MIN (>60); Glucose 140 mg/dl (74-100); Potassium 4.4 mmoL/L (3.5-5.1); Sodium 134 mmol/L (136-145)
[2020-07-10 08:00] LABS: Acanthocytes 1+; Anisocytosis 1+; Lymphocytes % 11 % (10-50); Monocytes % 2 % (2-9); Neutrophils % 87 % (42-76); Platelet Estimate Normal; Poikilocytosis 1+; Total Cells Counted 100
--- NOTE | 2020-07-10 08:33 | HMH.HP ---
*Admission Date: 07/09/20 *Chief complaint: Gouty arthritis flare, vomiting with diarrhea *History of present illness: 75-year-old white female with history of gouty arthritis, who has had some flares recently and apparently 2 weeks ago was started on allopurinol therapy. Unfortunately over the last week or so she is felt very poorly, increasing joint swelling in the right foot, right knee and right elbow, also began to have significant abdominal cramping, accompanied with watery diarrhea without blood or fever, and some vomiting. Came to the emergency department yesterday. Found to have leukocytosis, dehydration, acute kidney injury and significant gouty arthritis flares in her foot, knee and right elbow. Admitted to hospital for IV steroids, IV fluids and reevaluation of gout therapy [facility] History I have reviewed the patient's past medical history: Yes Medical History: Reports:: Anxiety, Atherosclerotic Heart Disease, Cardiomyopathy, Congestive Heart Failure, Chronic Obstructive Pulmonary Disease (COPD), Coronary Artery Disease, Hyperlipidemia, Hypertension, MRSA, Renal Insufficiency, Seizures, Urinary Tract Infection Denies:: Cancer, Diabetes Mellitus Type 1, Diabetes Mellitus Type 2, Internal Pacemaker, Lung Disease *Have you ever received a pneumonia vaccine?: Yes *Have you received a flu vaccine this season?: Yes Other Medical History: Reports: Arthritis, Thyroid Disease Laterality Cases: Left: Other Other Surgeries: Yes: No Previous Surgery, Appendectomy, Cardiac Catheterization, Cholecystectomy, Coronary Stent, , Hysterectomy-Total, Other. No: Pacemaker Amputation: No Fractures: No - *Social History Last grade of school completed: High school graduate Smoking Status: Never smoker Alcohol Intake: never Alcohol Intake Frequency:: other Substance Use Type: denies use *Occupational Status:: retired Housing: house Household Members: spouse *Travel in the last 8 weeks: None - Psychiatric History Pschychiatric History:: Reports:: Anxiety Family Hx:: Cancer, Heart Attack Review of Systems - Review of Systems Review of systems:: pertinent systems reviewed and negative unless documented below This morning patient feels better. Continues to deny cardiopulmonary symptoms. Notes that her GI symptoms are improved with no diarrhea overnight, no vomiting and tolerating clear liquids well. Denies neurologic symptoms. Reports that she has no skin rash. Reports that her joints are less swollen. Otherwise complete review of systems negative. [facility] Home Medications Medication Instructions Recorded Confirmed Type aspirin 81 mg tablet,delayed 81 mg PO HS 12/03/17 07/09/20 History release levothyroxine 50 mcg capsule 50 mcg PO DAILY cap 11/06/18 07/09/20 History indomethacin 50 mg capsule 50 mg PO ONCE PRN cap 07/20/19 07/09/20 History potassium chloride 20 mEq 20 meq PO BID tab 07/20/19 07/09/20 History tablet,extended release ticagrelor 90 mg tablet 90 mg PO BID #180 tab 07/20/19 07/09/20 Rx fluoxetine 20 mg capsule 20 mg PO DAILY #30 cap 02/22/20 07/09/20 Rx omeprazole 20 mg capsule,delayed 20 mg PO BID #180 cap 06/20/20 07/09/20 Rx release Atorvastatin Calcium [Lipitor 80mg 80 mg PO DAILY 07/09/20 07/09/20 History Tablet] Furosemide [Furosemide 40MG tAB] 40 mg PO DAILY 07/09/20 07/09/20 History Losartan Potassium [Cozaar 25mg 25 mg PO DAILY 07/09/20 07/09/20 History Tablets] allopurinoL [Allopurinol 100mg 100 mg PO DAILY 07/09/20 07/09/20 History tablet] carvediloL [Carvedilol 25mg Tab] 37.5 mg PO BID 07/09/20 07/09/20 History Allergies Allergy/AdvReac Type Severity Reaction Status Date / Time Penicillins [PENICILLINS] Allergy Unknown I-HIVES Verified 05/06/20 11:19 promethazine [From Phenergan] AdvReac Intermediate Shakiness Verified 05/06/20 11:19 Exam Vital signs and Labs for Last 24 Hours: Temp Pulse Resp BP Pulse Ox 97.7 F 75 18 108/53 L 98 07/10/20 07
--- NOTE | 2020-07-10 09:40 | P.CONPHA_ITS ---
[facility] VTE Monitoring - Patient Demographics Admission date: 07/09/20 Report Date: 07/10/20 Time: 09:41 Allergies/Adverse Reactions: Patient Allergies Penicillins [PENICILLINS] Allergy (Unknown, Verified 05/06/20 11:19) I-HIVES promethazine [From Phenergan] Adverse Reaction (Intermediate, Verified 05/06/20 11:19) Shakiness Height: 1.55 m Weight: 55.111 kg Patient Problems: Current Active Problems Gout attack (Acute) Vomiting and diarrhea (Acute) Dehydration (Acute) Leukocytosis (Acute) Hyperglycemia (Acute) Acute kidney injury (Acute) - VTE Risk Labs: VTE Related Lab Results Hgb 9.0 g/dL (12.2-16.2) L D 07/10/20 07:13 Hct 28.5 % (37.0-47.0) L 07/10/20 07:13 Plt Count 153 K/mm3 (142-424) 07/10/20 07:13 BUN 40 mg/dl (7-17) H 07/10/20 07:13 Creatinine 1.90 mg/dl (0.52-1.04) H 07/10/20 07:13 Estimated Creat Clear 22 mL/min (50-200) 07/10/20 07:13 VTE Score: 10 VTE Risk Level: Moderate Risk - Prophylaxis VTE Prophylaxis Ordered?: Yes Types of VTE Prophylaxis: TEDS Knee High Location of Applied Device: Bilateral Lower Extremeties
--- NOTE | 2020-07-10 09:42 | HMH.PHAINT ---
HOME MEDICATIONS RECONCILED FROM RX BOTTLES AND FILL HISTORY.
--- NOTE | 2020-07-10 10:57 | PC.NURSE ---
obtained stool sample and sent to lab. Aprox 30mL liquid stool.
[2020-07-10 10:58] LABS: Adenovirus F 40/41, stool Not Detected (NotDetected); Astrovirus Not Detected (NotDetected); Campylobacter Not Detected (NotDetected); Clostridium Difficile A/B, PCR Not Detected (NotDetected); Cryptosporidium Not Detected (NotDetected); Cyclospora Cayetanesis Not Detected (NotDetected); Entamoeba histolytica Not Detected (NotDetected); Enteroaggregative E coli Not Detected (NotDetected); Enteropathogenic E coli Not Detected (NotDetected); Enterotoxigenic E coli Not Detected (NotDetected); Giardia lamblia Not Detected (NotDetected); Norovirus Not Detected (NotDetected); Plesimonas Shigalloides, PCR Not Detected (NotDetected); Rotavirus A Not Detected (NotDetected); Salmonella, PCR Not Detected (NotDetected); Sapovirus Not Detected (NotDetected); Shiga-like toxin E coli Not Detected (NotDetected); Shigella Enterovasive E coli Not Detected (NotDetected); Vibrio Cholerae Not Detected (NotDetected); Vibrio, PCR Not Detected (NotDetected); Yersinia Entercolitica, PCR Not Detected (NotDetected)
[2020-07-10 11:30] LABS: POC Glucose,Bedside 187 (70-110)
[2020-07-10 15:22] VITALS: BP 98/55; PULSE 77; RESP 18; TEMP 36.9; O2SAT 95
[2020-07-10 16:46] LABS: POC Glucose,Bedside 218 (70-110)
--- NOTE | 2020-07-10 17:15 | PC.NURSE ---
Pt has done well this shift. Gets OOB with standby assist to BSC. Has had 1 liquid BM today. Stool negative for Cdiff and pt taken out of isolation. Appetite is decreased. No N/V. Solumedrol resulted in hyperglycemia which required SSI coverage. VSS. No other issues noted.
[2020-07-10 19:33] VITALS: BP 106/60; PULSE 82; RESP 18; TEMP 36.6; O2SAT 94
[2020-07-10 20:30] LABS: POC Glucose,Bedside 207 (70-110)
--- NOTE | 2020-07-11 03:08 | PC.NURSE ---
A&OX4. PT TOLERATING RA WELL THIS SHIFT. PT HAS SLEPT T/O MAJORITY OF SHIFT. PT HAS GOTTEN UP TO BEDSIDE COMMODE WITH STANDBY ASSIST. PT HAS HAD NO BM THUS FAR THIS SHIFT. NO C/O NA/VO. PT ONLY C/O SLIGHT PAIN IN R KNEE, WHICH IS SLIGHTLY RED AND WARM TO TOUCH. PT HAS NO OTHER C/O THUS FAR. VSS WILL CONTINUE TO MONITOR.
[2020-07-11 04:00] VITALS: BP 135/76; PULSE 100; RESP 22; TEMP 36.9; O2SAT 98
[2020-07-11 05:00] VITALS: BMI 25.0
[2020-07-11 06:37] LABS: Eosinophils % 0.1 % (0.1-12.0); Hematocrit 26.6 % (37.0-47.0); Hemoglobin 8.6 g/dL (12.2-16.2); Lymphocytes # 0.4 K/mm3 (0.7-4.5); Lymphocytes % 1.7 % (10-50); Mean Corpuscular HGB Conc 32.3 g/dL (31.8-35.4); Mean Corpuscular Hemoglobin 28.8 pg (27.0-31.2); Mean Corpuscular Volume 89.3 fl (81-99); Mean Platelet Volume 10.1 fl (7.4-10.4); Monocytes # 0.6 K/mm3 (0.1-1.0); Monocytes % 2.7 % (1.7-9.3); Neutrophils # 20.6 K/mm3 (1.8-7.8); Neutrophils % 95.5 % (37.0-80.0); Platelet Count 162 K/mm3 (142-424); Red Blood Count 2.98 M/mm3 (4.20-5.40); Red Cell Distribution Width 17.8 % (11.5-17.5); White Blood Count 21.5 K/mm3 (4.8-10.8)
[2020-07-11 06:37] LABS: POC Glucose,Bedside 209 (70-110)
[2020-07-11 06:38] LABS: MANUAL DIFFERENTIAL MANUAL DIFFERENTIAL (MANUAL DIFF)
[2020-07-11 06:42] LABS: Chloride 110 mmol/L (98-107); Potassium 4.6 mmoL/L (3.5-5.1); Sodium 135 mmol/L (136-145)
[2020-07-11 06:45] LABS: Alanine Aminotransferase 16 U/L (12-78); Albumin Level 2.7 g/dl (3.5-5.0); Albumin/Globulin Ratio 0.9 (1.1-1.8); Alkaline Phosphatase 100 U/L (38-126); Anion Gap 10.6 mEq/L (5-15); Aspartate Amino Transferase 26 U/L (14-36); Bilirubin,Total 0.6 mg/dl (0.2-1.3); Blood Urea Nitrogen 43 mg/dl (7-17); Carbon Dioxide 19 mmol/L (22.0-30.0); Creatinine Clearance Estimated 26 mL/min (50-200); Estimated Glomerular Filt Rate 27 ml/min (>60); GFR (African American) 33 ML/MIN (>60); Globulin 2.9 g/dL (1.3-3.2); Glucose 198 mg/dl (74-100); Total Protein,Serum 5.6 g/dl (6.3-8.2)
[2020-07-11 07:41] LABS: Lymphocytes % 1 % (10-50); Monocytes % 1 % (2-9); Neutrophils % 98 % (42-76); Platelet Estimate Normal; RBC Morphology Normal; Total Cells Counted 100
[2020-07-11 08:00] VITALS: BP 126/82; PULSE 111; RESP 20; TEMP 37; O2SAT 97
--- NOTE | 2020-07-11 08:03 | HMH.DCSUM ---
General - General Admission date:: 07/09/20 Discharge date: 07/11/20 HPI HPI: 75-year-old white female with history of gouty arthritis, who has had some flares recently and apparently 2 weeks ago was started on allopurinol therapy. Unfortunately over the last week or so she is felt very poorly, increasing joint swelling in the right foot, right knee and right elbow, also began to have significant abdominal cramping, accompanied with watery diarrhea without blood or fever, and some vomiting. Came to the emergency department yesterday. Found to have leukocytosis, dehydration, acute kidney injury and significant gouty arthritis flares in her foot, knee and right elbow. Admitted to hospital for IV steroids, IV fluids and reevaluation of gout therapy Hospital Course Hospital Course: Patient was admitted, IV steroids were used to treat significant gout. Diarrhea resolved, questionable medication side effect. Patient remained with a leukocytosis-probably from prednisone, but symptomatically vastly improved. Diet was advanced. This morning she was doing well except for some minimal right knee redness and swelling but wished to go home and felt that she was ambulatory and was safe to be discharged. No fevers, normal bowel and bladder function. Good p.o. intake. Plan will be to be discharged. We will try once daily colchicine, much lower dose of prednisone and follow her up in our office in 48 hours. I will order labs for that morning and she will come to the office later in the afternoon to review labs and follow medication affect. Hyperglycemia in the hospital was noted, A1c however was normal, I think this is a prednisone effect, watch carefully in the office. Objective Vital signs: Temp Pulse Resp BP Pulse Ox 98.5 F 100 H 22 135/76 98 07/11/20 04:00 07/11/20 04:00 07/11/20 04:00 07/11/20 04:00 07/11/20 04:00 no acute distress - *Routine HEENT Exam Head: Present: normocephalic Eye: Present: EOMI, PERRL ENT: Present: mucous membranes moist - *Routine Neck Exam Present: supple - *Routine Respiratory Exam Present: CTA bilaterally - *Routine Cardiovascular Exam Present: RRR - *Routine Abdominal Exam Present: soft, normoactive bowel sounds. Absent: tenderness - *Routine Extremities Exam Absent: cyanosis, clubbing, edema Comments: Right knee minimally red and swollen. Vastly improved. Other joints have normalized - *Routine Skin Exam Present: warm. Absent: rash - Detailed Eye Exam Eyelids: Bilateral normal inspection Results Labs on day of discharge: Labs from last 24 hours 07/11/20 07/11/20 07/11/20 06:15 06:15 06:14 WBC 21.5 H* RBC 2.98 L Hgb 8.6 L Hct 26.6 L MCV 89.3 MCH 28.8 MCHC 32.3 RDW 17.8 H Plt Count 162 MPV 10.1 Neut % (Auto) 95.5 H Lymph % (Auto) 1.7 L [place] % (Auto) 2.7 Eos % (Auto) 0.1 Baso % (Auto) 0.0 L Neut # (Auto) 20.6 H Lymph # (Auto) 0.4 L [place] # (Auto) 0.6 Eos # (Auto) 0.0 Baso # (Auto) 0.0 Total Counted 100 Neutrophils % (Manual) 98 H Lymphocytes % (Manual) 1 L Monocytes % (Manual) 1 L Platelet Estimate Normal RBC Morphology Normal Sodium 135 L Potassium 4.6 Chloride 110 H Carbon Dioxide 19 L D Anion Gap 10.6 BUN 43 H Creatinine 1.80 H Estimated Creat Clear 26 Estimated GFR 27 L Est GFR ( Amer) 33 L Glucose 198 H D POC Glucose 209 H Hemoglobin A1c Calcium 8.0 L D Total Bilirubin 0.6 AST 26 ALT 16 Alkaline Phosphatase 100 Total Protein 5.6 L Albumin 2.7 L Globulin 2.9 Albumin/Globulin Ratio 0.9 L Stl Aeromonas (PCR) Stl C. cayetanensis PCR Stool Rotavirus (PCR) Stl Adenov F 40/41 PCR Stool Astrovirus (PCR) Stool Campylobacter PCR Stl C.difficile Tox PCR Stool Cryptosporidium PCR Stl E.coli Shiga Tox PCR Stool E coli O157 PCR Stl En
--- NOTE | 2020-07-11 08:55 | HMH.PHAINT ---
DISCHARGE COUNSELING COMPLETED ON PATIENT. NEW PRESCRIPTIONS INCLUDE COLCRYS AND PREDNISONE. THESE PRESCRIPTIONS WERE SENT TO [facility]. PATIENT IS TO CONTINUE ALL OTHER HOME MEDICATIONS WITH THE EXCEPTION OF LASIX, POTASSIUM, AND ALLOPURINOL. PATIENT VERBALIZED UNDERSTANDING AND HAD NO QUESTIONS AT THIS TIME. -JUANITA SERRATO, [place]
== END 2020-07-11 10:38 | disposition home or self-care (01) ==
LOC: ER 13:18 → 2ND 14:57
PROVIDERS: Internal Medicine Adolescent Medicine; Admitting Provider Family Medicine; Emergency Provider Emergency Medicine; PCP Internal Medicine Adolescent Medicine; Visit Provider Internal Medicine Adolescent Medicine
DX: T50.4X5A Adverse effect of drugs affecting uric acid metabolism, initial encounter (principal); M1A.9XX0 Chronic gout, unspecified, without tophus (tophi); E86.0 Dehydration; I25.10 Atherosclerotic heart disease of native coronary artery without angina pectoris; I50.9 Heart failure, unspecified; I11.0 Hypertensive heart disease with heart failure; E78.5 Hyperlipidemia, unspecified; J44.9 Chronic obstructive pulmonary disease, unspecified; Z79.899 Other long term (current) drug therapy; N17.9 Acute kidney failure, unspecified; Z79.02 Long term (current) use of antithrombotics/antiplatelets; Z95.5 Presence of coronary angioplasty implant and graft; Z88.0 Allergy status to penicillin; Z88.8 Allergy status to other drugs, medicaments and biological substances; R73.9 Hyperglycemia, unspecified; Z95.810 Presence of automatic (implantable) cardiac defibrillator; R07.9 Chest pain, unspecified
CPT/HCPCS: 36415; 74176; 80048; 80053; 81001; 82150; 82962; 83036; 83690; 84443; 84484; 84550; 85007; 85025; 85651; 86140; 87506; 87581; 87633; 87798; 93005; 96365; 96375; 96376; 99284; G0378; J2405

== ENCOUNTER → 2020-07-14 09:33 | Outpatient (CLI) | payer MEDICARE, SELFPAY ==
[2020-07-14 12:12] LABS: Basophils % 0.2 % (0.1-2.0); Eosinophils # 0.1 K/mm3 (0.0-0.4); Eosinophils % 0.6 % (0.1-12.0); Hematocrit 30.6 % (37.0-47.0); Hemoglobin 9.6 g/dL (12.2-16.2); Lymphocytes # 0.5 K/mm3 (0.7-4.5); Lymphocytes % 4.4 % (10-50); Mean Corpuscular HGB Conc 31.5 g/dL (31.8-35.4); Mean Corpuscular Hemoglobin 28.4 pg (27.0-31.2); Mean Corpuscular Volume 90.1 fl (81-99); Mean Platelet Volume 9.1 fl (7.4-10.4); Monocytes # 0.4 K/mm3 (0.1-1.0); Monocytes % 3.8 % (1.7-9.3); Neutrophils # 10.7 K/mm3 (1.8-7.8); Platelet Count 183 K/mm3 (142-424); Red Blood Count 3.39 M/mm3 (4.20-5.40); White Blood Count 11.7 K/mm3 (4.8-10.8)
[2020-07-14 12:15] LABS: MANUAL DIFFERENTIAL MANUAL DIFFERENTIAL (MANUAL DIFF)
[2020-07-14 12:17] LABS: Anion Gap 12.7 mEq/L (5-15); Blood Urea Nitrogen 28 mg/dl (7-17); Calcium 8.9 mg/dl (8.4-10.2); Carbon Dioxide 21 mmol/L (22.0-30.0); Chloride 108 mmol/L (98-107); Estimated Glomerular Filt Rate 54 ml/min (>60); GFR (African American) 65 ML/MIN (>60); Glucose 147 mg/dl (74-100); Potassium 4.7 mmoL/L (3.5-5.1); Sodium 137 mmol/L (136-145); Uric Acid 6.9 mg/dl (2.5-6.2)
[2020-07-14 12:38] LABS: Erythrocyte Sedimentation Rate > 140 mm/hr (0-30)
[2020-07-14 12:40] LABS: Lymphocytes % 3 % (10-50); Monocytes % 3 % (2-9); Neutrophils % 94 % (42-76); Total Cells Counted 100
[2020-07-14 12:41] LABS: Platelet Estimate Normal; RBC Morphology Normal
== END ==
PROVIDERS: PCP Nurse Practitioner Family; Visit Provider Nurse Practitioner Family
DX: I50.20 Unspecified systolic (congestive) heart failure (principal); M10.9 Gout, unspecified
CPT/HCPCS: 36415; 80048; 84550; 85007; 85025; 85651

== ENCOUNTER → 2020-08-12 09:09 | Outpatient (CLI) | payer MEDICARE, SELFPAY ==
[2020-08-12 13:47] LABS: Chloride 105 mmol/L (98-107); Potassium 4.3 mmoL/L (3.5-5.1); Sodium 139 mmol/L (136-145)
[2020-08-12 13:50] LABS: Anion Gap 12.3 mEq/L (5-15); Blood Urea Nitrogen 14 mg/dl (7-17); Calcium 9.3 mg/dl (8.4-10.2); Carbon Dioxide 26 mmol/L (22.0-30.0); Estimated Glomerular Filt Rate 44 ml/min (>60); GFR (African American) 53 ML/MIN (>60); Glucose 113 mg/dl (74-100)
[2020-08-12 14:01] LABS: NT Pro Brain Natriuretic Pep. 6580 pg/mL (0-450)
== END ==
PROVIDERS: Visit Provider Internal Medicine Cardiovascular Disease
DX: E78.5 Hyperlipidemia, unspecified (principal); G47.33 Obstructive sleep apnea (adult) (pediatric); I11.9 Hypertensive heart disease without heart failure; I25.10 Atherosclerotic heart disease of native coronary artery without angina pectoris; I25.5 Ischemic cardiomyopathy; I42.9 Cardiomyopathy, unspecified; I50.20 Unspecified systolic (congestive) heart failure; I50.22 Chronic systolic (congestive) heart failure; R94.31 Abnormal electrocardiogram [ECG] [EKG]; Z95.810 Presence of automatic (implantable) cardiac defibrillator
CPT/HCPCS: 36415; 80048; 83880

== ENCOUNTER → 2020-08-26 09:29 | Outpatient (CLI) | payer MEDICARE, SELFPAY ==
[2020-08-26 13:59] LABS: Chloride 104 mmol/L (98-107); Potassium 4.3 mmoL/L (3.5-5.1); Sodium 141 mmol/L (136-145)
[2020-08-26 14:02] LABS: Anion Gap 12.3 mEq/L (5-15); Blood Urea Nitrogen 26 mg/dl (7-17); Carbon Dioxide 29 mmol/L (22.0-30.0); Estimated Glomerular Filt Rate 34 ml/min (>60); GFR (African American) 41 ML/MIN (>60)
[2020-08-26 14:03] LABS: Calcium 9.4 mg/dl (8.4-10.2); Glucose 119 mg/dl (74-100)
== END ==
PROVIDERS: Visit Provider Physician Assistant
DX: Z79.899 Other long term (current) drug therapy (principal)
CPT/HCPCS: 36415; 80048

== ENCOUNTER → 2020-09-30 11:38 | Outpatient (CLI) | payer MEDICARE, SELFPAY ==
[2020-09-30 14:55] LABS: Chloride 104 mmol/L (98-107); Potassium 4.6 mmoL/L (3.5-5.1); Sodium 139 mmol/L (136-145)
[2020-09-30 14:58] LABS: Anion Gap 13.6 mEq/L (5-15); Blood Urea Nitrogen 25 mg/dl (7-17); Carbon Dioxide 26 mmol/L (22.0-30.0); Estimated Glomerular Filt Rate 34 ml/min (>60); GFR (African American) 41 ML/MIN (>60); Glucose 113 mg/dl (74-100)
== END ==
PROVIDERS: Visit Provider Urology
DX: I11.9 Hypertensive heart disease without heart failure (principal); R06.00 Dyspnea, unspecified
CPT/HCPCS: 36415; 80048

== ENCOUNTER → 2020-12-09 11:44 | Outpatient (CLI) | payer MEDICARE, SELFPAY ==
[2020-12-09 14:02] LABS: Chloride 102 mmol/L (98-107); Potassium 4.8 mmoL/L (3.5-5.1); Sodium 139 mmol/L (136-145)
[2020-12-09 14:05] LABS: Alanine Aminotransferase 11 U/L (12-78); Albumin Level 3.7 g/dl (3.5-5.0); Albumin/Globulin Ratio 1.2 (1.1-1.8); Alkaline Phosphatase 125 U/L (38-126); Anion Gap 11.8 mEq/L (5-15); Aspartate Amino Transferase 25 U/L (14-36); Bilirubin,Total 0.7 mg/dl (0.2-1.3); Blood Urea Nitrogen 34 mg/dl (7-17); Carbon Dioxide 30 mmol/L (22.0-30.0); Cholesterol 150 mg/dl (140-200); Estimated Glomerular Filt Rate 29 ml/min (>60); GFR (African American) 35 ML/MIN (>60); Total Protein,Serum 6.7 g/dl (6.3-8.2); Triglycerides 137 mg/dl (30-150); VLDL Cholesterol 27 mg/dL (0-40)
[2020-12-09 14:06] LABS: Calcium 9.9 mg/dl (8.4-10.2); Chol/HDL Ratio 3.5 (1-3.5); Glucose 121 mg/dl (74-100); HDL Cholesterol 43 mg/dl (40-60)
[2020-12-09 14:17] LABS: Direct LDL Cholesterol 67.36 mg/dL (100-129)
[2020-12-09 14:30] LABS: Basophils # 0.1 K/mm3 (0-0.2); Basophils % 0.5 % (0.1-2.0); Eosinophils # 0.1 K/mm3 (0.0-0.4); Eosinophils % 1.3 % (0.1-12.0); Hemoglobin 10.7 g/dL (12.2-16.2); Lymphocytes # 1.8 K/mm3 (0.7-4.5); Lymphocytes % 17.4 % (10-50); Mean Corpuscular HGB Conc 32.3 g/dL (31.8-35.4); Mean Corpuscular Hemoglobin 26.4 pg (27.0-31.2); Mean Corpuscular Volume 81.7 fl (81-99); Mean Platelet Volume 9.4 fl (7.4-10.4); Monocytes # 0.6 K/mm3 (0.1-1.0); Monocytes % 6.1 % (1.7-9.3); Neutrophils # 7.7 K/mm3 (1.8-7.8); Neutrophils % 74.7 % (37.0-80.0); Platelet Count 262 K/mm3 (142-424); Red Blood Count 4.04 M/mm3 (4.20-5.40); Red Cell Distribution Width 17.4 % (11.5-17.5); White Blood Count 10.3 K/mm3 (4.8-10.8)
[2020-12-09 14:36] LABS: Thyroid Stimulating Hormone 3.73 uIU/mL (0.465-4.68)
[2020-12-09 17:08] LABS: Hemoglobin A1C 6.4 % (4.0-6.0)
[2020-12-09 19:44] LABS: Uric Acid 7.4 mg/dl (2.5-6.2)
[2020-12-09 20:32] LABS: Vitamin B12 320 pg/mL (239-931)
== END ==
PROVIDERS: Visit Provider Nurse Practitioner Family
DX: E78.5 Hyperlipidemia, unspecified (principal); E03.9 Hypothyroidism, unspecified; E53.8 Deficiency of other specified B group vitamins; R73.9 Hyperglycemia, unspecified; M79.672 Pain in left foot; M79.89 Other specified soft tissue disorders
CPT/HCPCS: 36415; 80053; 80061; 82607; 83036; 84443; 84550; 85025

== ENCOUNTER → 2021-01-26 10:51 | Outpatient (CLI) | payer MEDICARE, SELFPAY ==
[2021-01-26 14:43] LABS: Chloride 108 mmol/L (98-107)
[2021-01-26 14:46] LABS: Anion Gap 12.2 mEq/L (5-15); Blood Urea Nitrogen 32 mg/dl (7-17); Calcium 9.9 mg/dl (8.4-10.2); Carbon Dioxide 27 mmol/L (22.0-30.0); Estimated Glomerular Filt Rate 34 ml/min (>60); GFR (African American) 41 ML/MIN (>60); Glucose 119 mg/dl (74-100); Potassium 5.2 mmoL/L (3.5-5.1); Sodium 142 mmol/L (136-145)
== END ==
PROVIDERS: Visit Provider Internal Medicine Cardiovascular Disease
DX: E78.5 Hyperlipidemia, unspecified (principal); G47.33 Obstructive sleep apnea (adult) (pediatric); I11.9 Hypertensive heart disease without heart failure; I25.10 Atherosclerotic heart disease of native coronary artery without angina pectoris; I95.9 Hypotension, unspecified; R06.00 Dyspnea, unspecified; R53.83 Other fatigue; Z95.810 Presence of automatic (implantable) cardiac defibrillator
CPT/HCPCS: 36415; 80048

== ENCOUNTER → 2021-04-17 09:39 | Outpatient (CLI) | payer MEDICARE, SELFPAY ==
[2021-04-17 13:42] LABS: Basophils # 0.1 K/mm3 (0-0.2); Basophils % 0.6 % (0.1-2.0); Eosinophils # 0.3 K/mm3 (0.0-0.4); Eosinophils % 3.3 % (0.1-12.0); Hematocrit 31.1 % (37.0-47.0); Hemoglobin 10.2 g/dL (12.2-16.2); Lymphocytes # 1.7 K/mm3 (0.7-4.5); Lymphocytes % 20.1 % (10-50); Mean Corpuscular HGB Conc 32.9 g/dL (31.8-35.4); Mean Corpuscular Hemoglobin 27.5 pg (27.0-31.2); Mean Corpuscular Volume 83.5 fl (81-99); Mean Platelet Volume 9.3 fl (7.4-10.4); Monocytes # 0.6 K/mm3 (0.1-1.0); Monocytes % 6.4 % (1.7-9.3); Neutrophils % 69.6 % (37.0-80.0); Platelet Count 217 K/mm3 (142-424); Red Blood Count 3.72 M/mm3 (4.20-5.40); Red Cell Distribution Width 17.1 % (11.5-17.5); White Blood Count 8.6 K/mm3 (4.8-10.8)
[2021-04-17 13:55] LABS: Alanine Aminotransferase 15 U/L (12-78); Albumin Level 3.6 g/dl (3.5-5.0); Alkaline Phosphatase 121 U/L (38-126); Anion Gap 10.5 mEq/L (5-15); Aspartate Amino Transferase 26 U/L (14-36); Bilirubin,Direct 0.4 mg/dl (0.0-0.4); Bilirubin,Indirect 0.3 mg/dL (0.0-0.9); Bilirubin,Total 0.7 mg/dl (0.2-1.3); Bilirubin,Unconjugated 0.3 mg/dL (0.0-1.1); Blood Urea Nitrogen 27 mg/dl (7-17); Calcium 9.1 mg/dl (8.4-10.2); Carbon Dioxide 24 mmol/L (22.0-30.0); Chloride 110 mmol/L (98-107); Chol/HDL Ratio 4.5 (1-3.5); Cholesterol 167 mg/dl (140-200); Estimated Glomerular Filt Rate 34 ml/min (>60); GFR (African American) 41 ML/MIN (>60); Glucose 109 mg/dl (74-100); HDL Cholesterol 37 mg/dl (40-60); Potassium 4.5 mmoL/L (3.5-5.1); Sodium 140 mmol/L (136-145); Total Protein,Serum 6.1 g/dl (6.3-8.2); Triglycerides 169 mg/dl (30-150); VLDL Cholesterol 34 mg/dL (0-40)
[2021-04-17 14:07] LABS: Direct LDL Cholesterol 76.01 mg/dL (100-129)
== END ==
PROVIDERS: Visit Provider Internal Medicine Cardiovascular Disease
DX: E78.5 Hyperlipidemia, unspecified (principal); G47.33 Obstructive sleep apnea (adult) (pediatric); I25.10 Atherosclerotic heart disease of native coronary artery without angina pectoris; I25.5 Ischemic cardiomyopathy; I42.9 Cardiomyopathy, unspecified; I50.20 Unspecified systolic (congestive) heart failure; I50.22 Chronic systolic (congestive) heart failure; R94.31 Abnormal electrocardiogram [ECG] [EKG]; Z95.810 Presence of automatic (implantable) cardiac defibrillator; I11.0 Hypertensive heart disease with heart failure
CPT/HCPCS: 36415; 80048; 80061; 80076; 85025

== ENCOUNTER → 2021-05-16 20:09 | Outpatient (CLI) | payer MEDICARE, SELFPAY ==
[2021-05-16 20:21] LABS: Basophils # 0.1 K/mm3 (0-0.2); Basophils % 0.5 % (0.1-2.0); Eosinophils # 0.3 K/mm3 (0.0-0.4); Hematocrit 32.7 % (37.0-47.0); Hemoglobin 10.8 g/dL (12.2-16.2); Lymphocytes # 2.1 K/mm3 (0.7-4.5); Lymphocytes % 19.7 % (10-50); Mean Corpuscular HGB Conc 33.1 g/dL (31.8-35.4); Mean Corpuscular Hemoglobin 27.6 pg (27.0-31.2); Mean Corpuscular Volume 83.2 fl (81-99); Mean Platelet Volume 9.6 fl (7.4-10.4); Monocytes # 0.7 K/mm3 (0.1-1.0); Monocytes % 6.6 % (1.7-9.3); Neutrophils # 7.6 K/mm3 (1.8-7.8); Neutrophils % 70.3 % (37.0-80.0); Platelet Count 263 K/mm3 (142-424); Red Blood Count 3.93 M/mm3 (4.20-5.40); Red Cell Distribution Width 16.8 % (11.5-17.5); White Blood Count 10.8 K/mm3 (4.8-10.8)
[2021-05-16 21:01] LABS: Alanine Aminotransferase 15 U/L (12-78); Albumin Level 3.8 g/dl (3.5-5.0); Albumin/Globulin Ratio 1.5 (1.1-1.8); Alkaline Phosphatase 134 U/L (38-126); Anion Gap 13.9 mEq/L (5-15); Aspartate Amino Transferase 27 U/L (14-36); Bilirubin,Total 0.7 mg/dl (0.2-1.3); Blood Urea Nitrogen 33 mg/dl (7-17); Calcium 9.3 mg/dl (8.4-10.2); Carbon Dioxide 27 mmol/L (22.0-30.0); Chloride 104 mmol/L (98-107); Chol/HDL Ratio 4.8 (1-3.5); Cholesterol 174 mg/dl (140-200); Estimated Glomerular Filt Rate 29 ml/min (>60); GFR (African American) 35 ML/MIN (>60); Globulin 2.6 g/dL (1.3-3.2); Glucose 96 mg/dl (74-100); HDL Cholesterol 36 mg/dl (40-60); Potassium 4.9 mmoL/L (3.5-5.1); Sodium 140 mmol/L (136-145); Total Protein,Serum 6.4 g/dl (6.3-8.2); Triglycerides 226 mg/dl (30-150); VLDL Cholesterol 45 mg/dL (0-40)
[2021-05-16 21:12] LABS: Direct LDL Cholesterol 77.26 mg/dL (100-129)
[2021-05-16 21:49] LABS: Vitamin B12 326 pg/mL (239-931)
[2021-05-16 22:20] LABS: Free Thyroxine Index 3.2 ug/dL (5.93-13.13); T4 (Thyroxine) 9.6 ug/dl (5.53-11.0); Triiodothryronine (T3) Uptake 33 % (23.5-40.5)
[2021-05-16 22:34] LABS: Thyroid Stimulating Hormone 1.99 uIU/mL (0.465-4.68)
== END ==
PROVIDERS: Visit Provider Internal Medicine Adolescent Medicine
DX: E03.9 Hypothyroidism, unspecified (principal); E78.5 Hyperlipidemia, unspecified
CPT/HCPCS: 80053; 80061; 82607; 84436; 84443; 84479; 85025

== ENCOUNTER → 2022-01-16 06:57 | Outpatient (CLI) | payer MEDICARE, SELFPAY ==
--- NOTE | 2022-01-16 | CA_ITS ---
APPROVED REPORT Exam: Pharmacologic Technologist: Steffi Goddard, Ht: 5 ft 0 in Wt: 138 lbs BSA: 1.59 m2 Rhythm: NSR WITH VENTRICULAR PACED RHYTHM, PVC Medical History Medical History: HTN, Hyperlipidemia Medications: Omeprazole,,,,, Levothyroxine,,,,, Aspirin,,,,, Allopurinol,,,,, Atorvastatin,,,,, Carvedilol,,,,, Aldactone,,,,, Fluoxetine,,,,, INdomethacin,,,,, Furosemide,,,,, Allergies: PENICILLIN, PROMETHAZINE Stress Test Details Test: LEXISCAN HR Resting HR: 71 bpm Max Heart Rate (APMHR): 144.769397 bpm Max HR Achieved: 91 bpm Target HR (85% APMHR): 122.789233 bpm % of APMHR: 63.19 Recovery HR: 76 bpm BP Resting BP: 133/77 mmHg Max BP: 133/77 mmHg Recovery BP: 118.0/71.0 mmHg ECG Resting ECG: NSR WITH VENTRICULAR PACED RHYTHM, PVC Clinical Exercise duration: 04:01 min Highest Stage Achieved: Stress ECG Conclusion PT HAS SOA, NAUSEA, MALAISE. NO CP. OCCASIONAL PVC. NO SIGNIFICANT CHANGES. NON DIAGNOSTIC LEXISCAN STRESS. MYOVIEW IMAGES REPORTED SEPARATELY. Test Summary REST 04:07 . . 71 . 133/ 77 . . Stage 1 01:00 . . 90 . . . . Stage 2 01:00 . . 88 . 104/ 62 . . Stage 3 01:00 . . 86 . 114/ 68 . . Stage 4 01:00 . . 84 . 122/ 69 . . Stage 4 01:01 . . 84 . 122/ 69 . Stop exercise at 04:01 RECOVERY 01:00 . . 74 . . . . RECOVERY 02:00 . . 79 . . . . RECOVERY 03:00 . . 78 . . . . RECOVERY 04:00 . . 79 . . . . RECOVERY 05:00 . . 77 . 116/ 66 . . RECOVERY 06:00 . . 76 . 118/ 71 . . RECOVERY 07:00 . . 76 . 118/ 71 . . RECOVERY 08:00 . . 76 . 128/ 66 . . RECOVERY 08:36 . . 78 . 128/ 66 . . Electronically signed by : Donovan Whitfield MD 01/17/2022 11:39:21
--- NOTE | 2022-01-16 06:57 | NM_ITS ---
APPROVED REPORT Exam: Nuclear Stress Test Indication: Chest pain, Abnormal EKG, High cholesterol, Family history, CAD Patient Location: Outpatient Stress Tech: Steffi Goddard NM Tech:Ashley Montes, ARRT, RT (R)(N) Ht: 5 ft 1 in Wt: 133 lbs Bra Size: 36A HR: 71 bpm BP: 133/77 mmHg BSA: 1.59 m2 BMI: 25.1 History: Chest pain, Abnormal EKG, High cholesterol, Family history, CAD Procedure: Patient received a 0.4 mg of intravenous Lexiscan, resting heart rate 71 bpm, resting blood pressure 133/77 mmHg, with Lexiscan maximum heart rate achived was 91 bpm which is Less than 85 % of the maximum predicted heart rate and blood pressure was 133/77 mmHg. With Lexiscan, patient denied any complaint of chest pain. Electrocardiogram Resting electrocardiogram showed electronically paced rhythm, with Lexiscan there is less than 1.[address] segment depression noted from the baseline EKG. The EKG portion of the Lexiscan is nondiagnostic. Cardiac Stress and Resting SPECT Images: Cardiac Stress and Resting SPECT images were obtained using technetium 99m Myoview 30.5 mCi stress and 10.35 mCi at rest. Gated SPECT for analysis of segmental wall motion and calculation of ejection fraction also done. Cardiac stress and resting SPECT images show reversible ischemia involving the anterolateral wall, computer derived ejection fraction is 38% with moderate anterolateral wall hypokinesis, right ventricle is normal size and contractility. Conclusion: 1. The EKG portion of the Lexiscan is nondiagnostic. 2. Scintigraphic evidence of reversible ischemia involving the anterolateral wall, compared right ejection fraction is 38% with segmental wall motion abnormality described above, right ventricle is normal size and contractility. 3. Abnormal Lexiscan Myoview study. Electronically signed by : Donovan Whitfield MD 01/17/2022 17:34:40
--- NOTE | 2022-01-16 09:12 | HMH.ITSHM ---
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 []SPIRONOLACTONE OMEPRAZOLE LEVOTHYROXINE INDOMETHACIN FUROSEMIDE FLUOXETINE CARVEDILOL ATORVASTATIN ASA ALLPURINOL
== END ==
PROVIDERS: PCP Internal Medicine Adolescent Medicine; Visit Provider Internal Medicine Cardiovascular Disease
DX: E78.2 Mixed hyperlipidemia (principal); G47.33 Obstructive sleep apnea (adult) (pediatric); I11.0 Hypertensive heart disease with heart failure; I25.10 Atherosclerotic heart disease of native coronary artery without angina pectoris; I25.5 Ischemic cardiomyopathy; I50.20 Unspecified systolic (congestive) heart failure; I50.22 Chronic systolic (congestive) heart failure; R07.89 Other chest pain; R94.31 Abnormal electrocardiogram [ECG] [EKG]; Z95.810 Presence of automatic (implantable) cardiac defibrillator
CPT/HCPCS: 78452; 93017; A9502; J0280; J2785

== ENCOUNTER → 2022-01-23 11:13 | Outpatient (CLI) | payer MEDICARE, SELFPAY ==
[2022-01-23 13:33] LABS: Basophils # 0.1 K/mm3 (0-0.2); Basophils % 0.8 % (0.1-2.0); Eosinophils # 0.5 K/mm3 (0.0-0.4); Eosinophils % 4.9 % (0.1-12.0); Hematocrit 35.8 % (37.0-47.0); Hemoglobin 11.2 g/dL (12.2-16.2); Lymphocytes # 2.4 K/mm3 (0.7-4.5); Lymphocytes % 26.4 % (10-50); Mean Corpuscular HGB Conc 31.4 g/dL (31.8-35.4); Mean Corpuscular Hemoglobin 26.6 pg (27.0-31.2); Mean Corpuscular Volume 84.7 fl (81-99); Mean Platelet Volume 10.1 fl (7.4-10.4); Monocytes # 0.5 K/mm3 (0.1-1.0); Monocytes % 5.6 % (1.7-9.3); Neutrophils # 5.7 K/mm3 (1.8-7.8); Neutrophils % 62.3 % (37.0-80.0); Platelet Count 235 K/mm3 (142-424); Red Blood Count 4.22 M/mm3 (4.20-5.40); Red Cell Distribution Width 17.9 % (11.5-17.5); White Blood Count 9.1 K/mm3 (4.8-10.8)
[2022-01-23 13:34] LABS: Chloride 106 mmol/L (98-107); Potassium 4.6 mmoL/L (3.5-5.1); Sodium 136 mmol/L (136-145)
[2022-01-23 13:37] LABS: Anion Gap 10.6 mEq/L (5-15); Blood Urea Nitrogen 24 mg/dl (7-17); Carbon Dioxide 24 mmol/L (22.0-30.0); Estimated Glomerular Filt Rate 37 ml/min (>60); GFR (African American) 44 ML/MIN (>60)
[2022-01-23 13:38] LABS: Calcium 8.8 mg/dl (8.4-10.2); Glucose 105 mg/dl (74-100)
== END ==
PROVIDERS: Visit Provider Internal Medicine Cardiovascular Disease
DX: Z01.812 Encounter for preprocedural laboratory examination; Z11.52 Encounter for screening for COVID-19; I25.118 Atherosclerotic heart disease of native coronary artery with other forms of angina pectoris; I25.5 Ischemic cardiomyopathy; I11.0 Hypertensive heart disease with heart failure; I50.20 Unspecified systolic (congestive) heart failure; I50.22 Chronic systolic (congestive) heart failure; R94.30 Abnormal result of cardiovascular function study, unspecified; R94.31 Abnormal electrocardiogram [ECG] [EKG]; E78.2 Mixed hyperlipidemia; Z95.810 Presence of automatic (implantable) cardiac defibrillator
CPT/HCPCS: 36415; 80048; 85025; C9803; U0003; U0005

== ENCOUNTER 2022-01-25 08:38 | Day surgery (SDC) | payer MEDICARE, SELFPAY ==
[2022-01-25] VITALS (15 sets, daily range): BP systolic 123–164; BP diastolic 66–95; PULSE 64–75; RESP 18–20; TEMP 36.9; O2SAT 92–99; BMI 26.4
--- NOTE | 2022-01-25 | IR_ITS ---
APPROVED REPORT Patient Location: Outpatient Improvement Engineer: TRUDY Arellano RT (R) PROCEDURES Left heart catheterization Left ventriculogram Selective coronary angiogram INDICATION High risk abnormal Myoview, Known ischemic heart disease, Informed consent was obtained prior to the procedure. COMPLICATIONS None Estimated Blood Loss: Less than 10 mls TECHNIQUE One percent lidocaine was used to anesthetize the right groin. The right femoral artery was accessed via the Seldinger technique. A 4-Macedonian sheath was placed in the right femoral artery. The JL-4 and JR-4 catheter was also used to perform left heart catheterization left ventriculogram and selective coronary angiogram. At the end of the procedure the patient was transferred to the post-op holding area in stable condition for arterial sheath removal. ANGIOGRAPHIC RESULTS The left main artery Normal The left anterior descending artery Is proximally normal followed by mid vessel stent which is widely patent free of in-stent restenosis with excellent proximal distal transitioning. The remaining LAD is widely patent The circumflex artery Nondominant normal The right coronary artery Large and dominant with extensive proximal calcification which all appears to be extravascular. There is a long mid vessel 30 to 40% nonflow limiting stenosis The REY ventriculogram reveals Severe LV dilatation with ejection fraction of 30% The left ventricular end-diastolic pressure 25 mmHg IMPRESSION Stable coronary disease as described above Dilated ventricle severe reduced ejection fraction accompanied by elevated LVEDP PLAN 1. Medical management for ischemic heart disease with standard therapy for systolic heart failure 2. Follow the cardiac resynchronization therapy heart logic program to better assess intravascular volume status 3. Aggressive risk factor modification Electronically signed by : Ifeanyi Lord MD 01/25/2022 10:24:17
== END 2022-01-25 13:34 | disposition home or self-care (01) ==
LOC: CATHLAB 08:39
PROVIDERS: PCP Internal Medicine Adolescent Medicine; Visit Provider Internal Medicine
DX: I25.118 Atherosclerotic heart disease of native coronary artery with other forms of angina pectoris (principal); R07.9 Chest pain, unspecified; R94.39 Abnormal result of other cardiovascular function study; Z79.899 Other long term (current) drug therapy; I25.5 Ischemic cardiomyopathy; I50.22 Chronic systolic (congestive) heart failure; I11.0 Hypertensive heart disease with heart failure; Z95.810 Presence of automatic (implantable) cardiac defibrillator
CPT/HCPCS: 93458; 99152; C1725; C1769; J1644; Q9967

== ENCOUNTER → 2022-07-26 17:45 | Outpatient (CLI) | payer MEDICARE, SELFPAY ==
[2022-07-26 18:49] LABS: Basophils # 0.1 K/mm3 (0-0.2); Basophils % 0.6 % (0.1-2.0); Eosinophils # 0.4 K/mm3 (0.0-0.4); Eosinophils % 3.9 % (0.1-12.0); Hematocrit 38.9 % (37.0-47.0); Hemoglobin 12.1 g/dL (12.2-16.2); Lymphocytes # 2.3 K/mm3 (0.7-4.5); Lymphocytes % 22.7 % (10-50); Mean Corpuscular HGB Conc 31.2 g/dL (31.8-35.4); Mean Corpuscular Hemoglobin 26.5 pg (27.0-31.2); Mean Corpuscular Volume 84.9 fl (81-99); Mean Platelet Volume 9.8 fl (7.4-10.4); Monocytes # 0.6 K/mm3 (0.1-1.0); Monocytes % 5.7 % (1.7-9.3); Neutrophils # 6.9 K/mm3 (1.8-7.8); Platelet Count 326 K/mm3 (142-424); Red Blood Count 4.59 M/mm3 (4.20-5.40); Red Cell Distribution Width 17.8 % (11.5-17.5); White Blood Count 10.3 K/mm3 (4.8-10.8)
[2022-07-26 19:49] LABS: Alanine Aminotransferase 20 U/L (12-78); Albumin/Globulin Ratio 1.5 (1.1-1.8); Alkaline Phosphatase 189 U/L (38-126); Anion Gap 11.6 mEq/L (5-15); Aspartate Amino Transferase 33 U/L (14-36); Bilirubin,Total 0.4 mg/dl (0.2-1.3); Blood Urea Nitrogen 34 mg/dl (7-17); Calcium 9.6 mg/dl (8.4-10.2); Carbon Dioxide 25 mmol/L (22.0-30.0); Chloride 104 mmol/L (98-107); Chol/HDL Ratio 5.2 (1-3.5); Cholesterol 197 mg/dl (140-200); Estimated Glomerular Filt Rate 27 ml/min (>60); GFR (African American) 33 ML/MIN (>60); Globulin 2.7 g/dL (1.3-3.2); Glucose 112 mg/dl (74-100); HDL Cholesterol 38 mg/dl (40-60); Potassium 4.6 mmoL/L (3.5-5.1); Sodium 136 mmol/L (136-145); Total Protein,Serum 6.7 g/dl (6.3-8.2); Triglycerides 278 mg/dl (30-150); VLDL Cholesterol 56 mg/dL (0-40)
[2022-07-26 20:19] LABS: Thyroid Stimulating Hormone 1.94 uIU/mL (0.465-4.68)
[2022-07-26 21:41] LABS: Vitamin B12 285 pg/mL (239-931)
[2022-07-28 07:59] LABS: Direct LDL Cholesterol 105 mg/dL (100-129)
== END ==
PROVIDERS: PCP Internal Medicine Adolescent Medicine; Visit Provider Internal Medicine Adolescent Medicine
DX: I25.5 Ischemic cardiomyopathy (principal); I10 Essential (primary) hypertension; Z79.899 Other long term (current) drug therapy
CPT/HCPCS: 80053; 80061; 82607; 84443; 85025

== ENCOUNTER → 2023-01-01 21:04 | Outpatient (CLI) | payer MEDICARE, SELFPAY | LOC: LAB 01-04 01:20 → LAB.DROPOF 01-09 08:19 | PROVIDERS: PCP Family Medicine; Visit Provider Family Medicine | DX: N39.0 Urinary tract infection, site not specified (principal) | CPT/HCPCS: 87086 ==

== ENCOUNTER 2023-01-06 12:41 | Observation (INO) | payer MEDICARE, SELFPAY ==
[2023-01-06] VITALS (7 sets, daily range): BP systolic 113–138; BP diastolic 61–84; PULSE 72–87; RESP 16–20; TEMP 36.3–37; O2SAT 95–98; BMI 26.0
--- NOTE | 2023-01-06 13:05 | EXP.UTC ---
Discharge Plan Disposition Patient Disposition: Still a Patient Condition: Fair Prescriptions Prescriptions: No Action spironolactone 25 mg tablet 25 mg PO Q OTHER DAY Rx Instructions: Take on Sat, Sat, and saturday furosemide 20 mg tablet 20 mg PO DAILY 90 Days Qty: 90 1RF fluoxetine 40 mg capsule 40 mg PO DAILY 90 Days Qty: 90 1RF levothyroxine 50 mcg capsule 50 mcg PO DAILY 90 Days Qty: 90 1RF allopurinol 100 mg tablet 100 mg PO DAILY 90 Days Qty: 90 1RF omeprazole 20 mg capsule,delayed release(DR/EC) 20 mg PO DAILY aspirin [Adult Low Dose Aspirin] 81 mg tablet,delayed release (DR/EC) 81 mg PO HS Jardiance 10 mg tablet 10 mg PO DAILY Qty: 90 3RF atorvastatin 80 mg tablet 80 mg PO DAILY Qty: 90 2RF carvedilol 25 mg tablet 25 mg PO BID Qty: 60 5RF sulfamethoxazole-trimethoprim 800-160 mg tablet 1 tab PO BID losartan 25 mg tablet 25 mg PO DAILY aripiprazole [Abilify] 10 mg tablet 10 mg PO DAILY Referrals Follow up/Referrals: Pacheco Delgado MD [Primary Care Provider] - See instructions Clinical Impressions Clinical Impression: Pain, pelvic, female Discharge ED Provider: Eric Bass [facility] General Stated complaint: Vagina pain Time Seen by Provider: 01/06/23 13:05 History of Present Illness Provider Complaint: She states that for the past 4 to 5 days she has been having left sided groin pain that radiates to her left hip and pelvic area. She denies any known injury. She saw her pcp when this first started. She was treated with an antibiotic for a uti, but she states that it is not helping her symptoms. She denies any urinary symptoms. She denies any redness or swelling of the area. Related Data Home Medications Medication Instructions Recorded Confirmed aspirin 81 mg tablet,delayed 81 mg PO [facility] 12/03/17 01/06/23 release (Adult Low Dose Aspirin) spironolactone 25 mg tablet 25 mg PO Q OTHER DAY Fluid 07/26/22 01/06/23 omeprazole 20 mg capsule,delayed 20 mg PO DAILY GERD 01/01/23 01/06/23 release aripiprazole 10 mg tablet (Abilify) 10 mg PO DAILY . 01/06/23 01/06/23 losartan 25 mg tablet 25 mg PO DAILY High blood pressure 01/06/23 01/06/23 sulfamethoxazole 800 1 tab PO BID abx 01/06/23 01/06/23 mg-trimethoprim 160 mg tablet Previous Rx's Medication Instructions Recorded atorvastatin 80 mg tablet 80 mg PO DAILY Cholesterol #90 tabs 04/19/22 carvedilol 25 mg tablet 25 mg PO BID BLOOD PRESSURE #60 06/18/22 tabs furosemide 20 mg tablet 20 mg PO DAILY edema 90 days #90 07/26/22 tabs allopurinol 100 mg tablet 100 mg PO DAILY GOUT 90 days #90 09/17/22 tabs fluoxetine 40 mg capsule 40 mg PO DAILY depression 90 days 09/17/22 #90 caps levothyroxine 50 mcg capsule 50 mcg PO DAILY THYROID 90 days 09/17/22 #90 caps empagliflozin 10 mg tablet 10 mg PO DAILY DM #90 tabs 09/28/22 (Jardiance) Allergies Allergy/AdvReac Type Severity Reaction Status Date / Time Penicillins [PENICILLINS] Allergy Unknown I-HIVES Verified 01/06/23 13:37 promethazine [From Phenergan] AdvReac Intermediate Shakiness Verified 01/06/23 13:37 prednisone AdvReac immunosuppr Verified 01/06/23 13:37 ession PFSH PFSH Disclaimer: The information contained in this section may have been updated after the patient was seen, as this information can be updated by other users. Medical History Abnormal EKG Chest pain Diarrhea Nausea with vomiting NYHA class 3 heart failure with reduced ejection fraction Surgical History AICD (automatic cardioverter/defibrillator) present H/O heart artery stent History of appendectomy History of History of cholecystectomy History of hysterectomy Previous back surgery Family History Grandmother Coronary artery
[2023-01-06 13:15] LABS: Apearance,Urine Clear (Clear); Color,Urine Yellow (Yellow); Glucose,Urine (UA) Negative (Negative); Ketones,Urine Negative (Negative); PH,Urine 5.5 (5.0-8.5); Protein,Urine Negative (Negative); Specific Gravity, Urine 1.015 (1.005-1.030)
[2023-01-06 13:16] LABS: Bilirubin,Urine Negative (Negative); Blood, Urine Negative (Negative); UTC Leukocyte Esterase,Urine Negative (Negative); UTC Nitrate,Urine Negative (Negative); Urobilinogen,Urine 0.2 EU/dl (0.2)
--- NOTE | 2023-01-06 14:53 | HMH.EDGENADL ---
Discharge Plan Disposition Patient Disposition: Admitted as Observation Condition: Fair Clinical Impressions Clinical Impression: Acute hyperkalemia, ARIES (acute kidney injury), Fracture of pubic ramus Discharge ED Provider: Eric Bass General Adult HPI General Chief complaint: Extremity Injury, Lower Stated complaint: Vagina pain Time Seen by Provider: 01/06/23 14:54 Mode of Arrival: Ambulatory Source of Information: Patient Limitations: No Limitations Description of Symptoms (Recalled from ER Triage Doc. by RN): pain in left leg that travels to groin. There is pressure and feels like something is falling out. History of Present Illness HPI narrative: The patient is sent from the urgent treatment center. She has a 1 week history of pain that she identifies as being in her left inguinal and groin area into her vagina. When she stands it feels like something is going to fall out. Denies urinary symptoms, vomiting, diarrhea, constipation, bleeding. She has had chills, but no fever. She saw her primary care provider, Dr. Delgado, on Saturday and was started on antibiotic which has not changed her symptoms. She has had a prior total hysterectomy. Related Data Home Medications Medication Instructions Recorded Confirmed aspirin 81 mg tablet,delayed 81 mg PO [facility] 12/03/17 01/06/23 release (Adult Low Dose Aspirin) spironolactone 25 mg tablet 25 mg PO Q OTHER DAY Fluid 07/26/22 01/06/23 omeprazole 20 mg capsule,delayed 20 mg PO DAILY GERD 01/01/23 01/06/23 release aripiprazole 10 mg tablet (Abilify) 10 mg PO DAILY . 01/06/23 01/06/23 losartan 25 mg tablet 25 mg PO DAILY High blood pressure 01/06/23 01/06/23 sulfamethoxazole 800 1 tab PO BID abx 01/06/23 01/06/23 mg-trimethoprim 160 mg tablet Previous Rx's Medication Instructions Recorded atorvastatin 80 mg tablet 80 mg PO DAILY Cholesterol #90 tabs 04/19/22 carvedilol 25 mg tablet 25 mg PO BID BLOOD PRESSURE #60 06/18/22 tabs furosemide 20 mg tablet 20 mg PO DAILY edema 90 days #90 07/26/22 tabs allopurinol 100 mg tablet 100 mg PO DAILY GOUT 90 days #90 09/17/22 tabs fluoxetine 40 mg capsule 40 mg PO DAILY depression 90 days 09/17/22 #90 caps levothyroxine 50 mcg capsule 50 mcg PO DAILY THYROID 90 days 09/17/22 #90 caps empagliflozin 10 mg tablet 10 mg PO DAILY DM #90 tabs 09/28/22 (Jardiance) Allergies Allergy/AdvReac Type Severity Reaction Status Date / Time Penicillins [PENICILLINS] Allergy Unknown I-HIVES Verified 01/06/23 13:37 promethazine [From Phenergan] AdvReac Intermediate Shakiness Verified 01/06/23 13:37 prednisone AdvReac immunosuppr Verified 01/06/23 13:37 ession PFSH [facility] Disclaimer: The information contained in this section may have been updated after the patient was seen, as this information can be updated by other users. Medical History Abnormal EKG Chest pain Diarrhea Nausea with vomiting NYHA class 3 heart failure with reduced ejection fraction Surgical History AICD (automatic cardioverter/defibrillator) present H/O heart artery stent History of appendectomy History of History of cholecystectomy History of hysterectomy Previous back surgery Family History Grandmother Coronary artery disease Mother Hypertension Father Hypertension Social History Smoking Status: Never smoker second hand exposure: No alcohol intake: never substance use type: denies use current occupational status: retired Travel in the last 8 weeks: Inside the [place] household members: spouse housing: house current occupational exposures/hazards: No caffeine: Yes ROS Obtained: Yes Systems reviewed as appropriate & no additional complaints except as documented Constitutio
[2023-01-06 15:07] LABS: Basophils # 0.1 K/mm3 (0-0.2); Basophils % 0.7 % (0.1-2.0); Eosinophils # 0.3 K/mm3 (0.0-0.4); Eosinophils % 2.3 % (0.1-12.0); Hematocrit 36.2 % (37.0-47.0); Hemoglobin 11.5 g/dL (12.2-16.2); Lymphocytes # 1.8 K/mm3 (0.7-4.5); Lymphocytes % 14.2 % (10-50); Mean Corpuscular HGB Conc 31.7 g/dL (31.8-35.4); Mean Corpuscular Hemoglobin 25.1 pg (27.0-31.2); Mean Corpuscular Volume 79.2 fl (81-99); Mean Platelet Volume 8.7 fl (7.4-10.4); Monocytes # 0.6 K/mm3 (0.1-1.0); Monocytes % 4.5 % (1.7-9.3); Neutrophils % 78.4 % (37.0-80.0); Platelet Count 318 K/mm3 (142-424); Red Blood Count 4.58 M/mm3 (4.20-5.40); Red Cell Distribution Width 18.8 % (11.5-17.5); White Blood Count 12.7 K/mm3 (4.8-10.8)
[2023-01-06 15:09] LABS: Chloride 106 mmol/L (98-107); Sodium 137 mmol/L (136-145)
[2023-01-06 15:11] LABS: Alanine Aminotransferase 26 U/L (12-78); Aspartate Amino Transferase 56 U/L (14-36); Blood Urea Nitrogen 45 mg/dl (7-17); Creatinine Clearance Estimated 14 mL/min (50-200); Estimated Glomerular Filt Rate 14 ml/min (>60); GFR (African American) 16 ML/MIN (>60)
[2023-01-06 15:12] LABS: Albumin Level 4.3 g/dl (3.5-5.0); Albumin/Globulin Ratio 1.3 (1.1-1.8); Alkaline Phosphatase 170 U/L (38-126); Anion Gap 13.1 mEq/L (5-15); Bilirubin,Total 0.6 mg/dl (0.2-1.3); Calcium 9.3 mg/dl (8.4-10.2); Carbon Dioxide 24 mmol/L (22.0-30.0); Globulin 3.3 g/dL (1.3-3.2); Glucose 112 mg/dl (74-100); Total Protein,Serum 7.6 g/dl (6.3-8.2)
--- NOTE | 2023-01-06 15:14 | XR_ITS ---
PROCEDURE INFORMATION: Exam: XR Pelvis Exam date and time: 01/06/2023 3:31 PM Age: 77 years old Clinical indication: Injury or trauma; Fall; Blunt trauma (contusions or hematomas); Left; Pelvic region and vagina; Additional info: Fell, pain in pelvic area TECHNIQUE: Imaging protocol: Radiologic exam of the pelvis. Views: 1 or 2 view. COMPARISON: CT ABDOMEN PELVIS WO CON 07/09/2020 11:54 AM FINDINGS: Bones/joints: There is an acute minimally displaced fracture involving the left superior pubic ramus near the puboacetabular junction. There is also a hairline fracture of the left inferior pubic ramus. Remaining osseous structures appear intact. Soft tissues: Unremarkable. IMPRESSION: Acute fractures involving the left superior and inferior pubic ramus.
--- NOTE | 2023-01-06 15:16 | PC.NURSE ---
this nurse and Dr. Bass at bedside for pelvic exam at this time. pt tolerated well
[2023-01-06 15:17] LABS: Potassium 6.1 mmoL/L (3.5-5.1)
[2023-01-06 15:32] LABS: Magnesium 2.3 mg/dl (1.6-2.3)
--- NOTE | 2023-01-06 15:42 | PC.NURSE ---
LOKI HOLLAND speaking with hospitalist
--- NOTE | 2023-01-06 15:50 | PC.NURSE ---
spoke with miguel in pharmacy for order for D5 with 150meq of sodium bicarb to run over 6 hours
--- NOTE | 2023-01-06 15:50 | PC.NURSE ---
ortho senior coldfusion developer paged per ER request
--- NOTE | 2023-01-06 15:51 | PC.NURSE ---
notified bath house attendant of admission
--- NOTE | 2023-01-06 15:59 | ECG_ITS ---
APPROVED REPORT Exam: Resting ECG HR:71 bpm ECG Measurements Heart Rate 71 AXES ID 152 P 57 QRSd 159 QRS 165 QT 476 T 16 QTc 498 Conclusion ELECTRONIC VENTRICULAR PACEMAKER ABNORMAL RHYTHM ECG UNCONFIRMED REPORT Electronically signed by : David Lewis MD 01/07/2023 19:50:59
--- NOTE | 2023-01-06 16:07 | PC.NURSE ---
DR RAMIREZ SPEAKING WITH DR MICHAELS
[2023-01-06 16:10] LABS: Coronavirus 19, PCR Not Detected (NotDetected); Influenza A, PCR Not Detected (NotDetected); Influenza B, PCR Not Detected (NotDetected)
[2023-01-06 16:23] LABS: NT Pro Brain Natriuretic Pep. 202 pg/mL (0-450)
[2023-01-06 16:29] LABS: Troponin I < 0.01 ng/ml (0.00-0.034)
--- NOTE | 2023-01-06 16:58 | EXP.HP ---
History of Present Illness *Admission Date: 01/06/23 *Reason for visit:: Chief complaint: Pelvic pain *History of present illness: This is a 77-year-old female who presents to [facility] emergency department at the request of urgent treatment center for pelvic pain over 6 days. She is accompanied by her daughter Kezia who she designates as her POA. Her past medical history is significant for heart failure with reduced ejection fraction secondary to ischemic cardiomyopathy, AICD, degenerative disc disease lumbar spine, coronary artery disease, chronic kidney disease stage IIIb, mood disorder and hypothyroidism. She reports that she was in her usual state of health sitting in her recliner at home when she saw a snake in her house she jumped up fell and experienced pelvic pain. She remained at home taking 2 Aleve daily to assist with the pain. Her pain is characterized as throbbing, constant and occasionally sharp. It is rated as greater than 5 on a 1-10 pain scale. It is not improving. She is unable to complete her activities of daily living. She reports her pain did not improve so she sought care at an urgent treatment center and subsequently referred to the ED. In the ED plain x-ray of the pelvis identified superior and inferior pubic ramus fracture on the left. Her laboratory evaluation was concerning for a BUN of 45 and a creatinine of 3.3 with her usual creatinine baseline 1.5. In January 2022 she saw her sap technical developer and the left heart cath identified an ejection fraction of 30%. [facility] Medical History (Updated 01/06/23 @ 17:21 by Max Alcantar MD) CAD (coronary artery disease) Chronic HFrEF (heart failure with reduced ejection fraction) Chronic kidney disease, stage 3b Degenerative joint disease (DJD) of lumbar spine Depression Gout HLD (hyperlipidemia) Hypothyroidism Microcytic anemia NADIA (obstructive sleep apnea) Vitamin B12 deficiency Surgical History (Updated 01/06/23 @ 17:14 by Max Alcantar MD) AICD (automatic cardioverter/defibrillator) present H/O heart artery stent History of appendectomy History of History of cholecystectomy History of hysterectomy Previous back surgery Family History (Updated 01/06/23 @ 17:15 by Max Alcantar MD) Grandmother Coronary artery disease Mother Hypertension Father Hypertension Kidney disease Social History Smoking Status: Never smoker second hand exposure: No alcohol intake: never substance use type: denies use current occupational status: retired Travel in the last 8 weeks: Inside the [place] household members: spouse housing: house current occupational exposures/hazards: No caffeine: Yes Review of Systems Review of Systems Review of systems:: pertinent systems reviewed and negative unless documented below Constitutional Constitutional: Denies headache(s) and Denies weakness ENT Ears, Nose, Mouth, and Throat: Denies dizziness and Denies headache(s) *Cardiovascular Cardiovascular: Denies chest pain, Denies dyspnea and Denies palpitations *Respiratory Respiratory: Denies dyspnea *Gastrointestinal Gastrointestinal: Denies diarrhea, Denies nausea and Denies vomiting *Musculoskeletal Musculoskeletal: Denies numbness Comments: Pelvic pain *Neurologic Neurologic: Denies dizziness, Denies headache(s), Denies numbness and Denies weakness Endocrine Endocrine: Denies palpitations Meds Home Medications and Allergies Home Medications Medication Instructions Recorded Confirmed Type aspirin 81 mg tablet,delayed 81 mg PO [facility] 12/03/17 01/06/23 History release (Adult Low Dose Aspirin) atorvastatin 80 mg tablet 80 mg PO DAILY Cholesterol #90 tabs 04/19/22 01/06/23 Rx carvedilol 25 mg tablet 25 mg PO BID BLOOD PRESSURE #60 06/18/22 01/06/23 Rx tabs furosemide 20 mg tablet 20 mg PO DAILY edema 90 days #90 07/26/22 01/06/23 Rx
--- NOTE | 2023-01-06 17:01 | PC.NURSE ---
report called to VIJAY De Guzman
--- NOTE | 2023-01-06 17:59 | PC.NURSE ---
pt refused Arias insertion
--- NOTE | 2023-01-06 18:00 | PC.NURSE ---
pt has been admitted to the floor. She is alert and oriented. Denies any pain unless she is ambulating. Family @ bedside.
[2023-01-06 20:24] LABS: Chloride 105 mmol/L (98-107); Potassium 4.5 mmoL/L (3.5-5.1); Sodium 138 mmol/L (136-145)
[2023-01-06 20:27] LABS: Anion Gap 12.5 mEq/L (5-15); Blood Urea Nitrogen 46 mg/dl (7-17); Carbon Dioxide 25 mmol/L (22.0-30.0); Creatinine Clearance Estimated 14 mL/min (50-200); Estimated Glomerular Filt Rate 14 ml/min (>60); GFR (African American) 16 ML/MIN (>60)
[2023-01-06 20:28] LABS: Calcium 8.7 mg/dl (8.4-10.2); Glucose 168 mg/dl (74-100)
[2023-01-06 20:45] LABS: Iron 39 ug/dL (37-170)
[2023-01-06 20:54] LABS: Total Iron Binding Capacity 347 ug/dL (265-497)
[2023-01-06 21:47] LABS: Vitamin B12 257 pg/mL (239-931)
[2023-01-07] VITALS (7 sets, daily range): BP systolic 100–122; BP diastolic 48–79; PULSE 68–84; RESP 16–18; TEMP 36.6–36.9; O2SAT 94–99; BMI 28.7
--- NOTE | 2023-01-07 06:06 | PC.NURSE ---
a&ox4. room air. iv fluids. complained of pain in left hip when ambulating, denied any pain meds. dicussed with patient the pain meds ordered if needed.
--- NOTE | 2023-01-07 08:11 | HMH.PHAINT1 ---
Pharmacy Intervention Comments: medication reconciliation completed using external fill history
[2023-01-07 08:23] LABS: Anion Gap 11.3 mEq/L (5-15); Blood Urea Nitrogen 51 mg/dl (7-17); Calcium 8.1 mg/dl (8.4-10.2); Carbon Dioxide 27 mmol/L (22.0-30.0); Chloride 102 mmol/L (98-107); Creatinine Clearance Estimated 18 mL/min (50-200); Estimated Glomerular Filt Rate 16 ml/min (>60); GFR (African American) 19 ML/MIN (>60); Glucose 87 mg/dl (74-100); Magnesium 2.1 mg/dl (1.6-2.3); Phosphorous 4.1 mg/dl (2.5-4.5); Potassium 5.3 mmoL/L (3.5-5.1); Sodium 135 mmol/L (136-145)
--- NOTE | 2023-01-07 08:36 | EXP.PN ---
Subjective *Date: 01/07/23 *Time: 10:40 Interval history: Date of service January 07, 2023 The patient reports no acute events through the night. She is breathing better. She reports adequate pain control. Orthopedics is due to see the patient. We have reviewed and discussed her laboratory studies. I have personally interpreted her labs as follows: Electrolytes with a sodium 138, potassium 4.5 which is improved, chloride 105, carbon dioxide 25, normal anion gap, BUN 46, creatinine downward trend at 2.9. Her glucose has remained under 180. Her iron studies identify deficiency. Her B12 level is low at 257. Exam Data for Last 24 hours Vital signs and Labs for Last 24 Hours: Temp Pulse Resp BP Pulse Ox 98.4 F 74 18 103/48 L 95 01/07/23 08:00 01/07/23 08:00 01/07/23 08:00 01/07/23 08:00 01/07/23 08:00 Laboratory Results - last 24 hr 01/06/23 13:14: Urine Color Yellow, Urine Appearance Clear, Urine pH 5.5, Ur Specific [place] 1.015, Urine Protein Negative, Urine Glucose (UA) Negative, Urine Ketones Negative, Urine Blood Negative, Urine Nitrate Negative, Urine Bilirubin Negative, Urine Urobilinogen 0.2, Ur Leukocyte Esterase Negative 01/06/23 14:25: WBC 12.7 H, RBC 4.58, Hgb 11.5 L, Hct 36.2 L, MCV 79.2 L, MCH 25.1 L, MCHC 31.7 L, RDW 18.8 H, Plt Count 318, MPV 8.7, Neut % (Auto) 78.4, Lymph % (Auto) 14.2, [place] % (Auto) 4.5, Eos % (Auto) 2.3, Baso % (Auto) 0.7, Neut # (Auto) 10.0 H, Lymph # (Auto) 1.8, [place] # (Auto) 0.6, Eos # (Auto) 0.3, Baso # (Auto) 0.1 01/06/23 14:25: Sodium 137, Potassium 6.1 H*, Chloride 106, Carbon Dioxide 24, Anion Gap 13.1, BUN 45 H, Creatinine 3.30 H, Estimated Creat Clear 14, Estimated GFR 14 L*, Est GFR ( Amer) 16 L*, Glucose 112 H, Calcium 9.3, Total Bilirubin 0.6, AST 56 H, ALT 26, Alkaline Phosphatase 170 H, Total Protein 7.6, Albumin 4.3, Globulin 3.3 H, Albumin/Globulin Ratio 1.3 01/06/23 14:25: Magnesium 2.3 01/06/23 14:25: Troponin I < 0.01, NT-Pro-B Natriuret Pep 202 01/06/23 16:02: SARS-CoV-2 (PCR) Not detected, Influenza A Untype (PCR) Not detected, Influenza Type B (PCR) Not detected 01/06/23 20:07: Iron 39, TIBC 347, Iron Saturation 11.66496 L, Vitamin B12 257 01/06/23 20:07: Sodium 138, Potassium 4.5 D, Chloride 105, Carbon Dioxide 25, Anion Gap 12.5, BUN 46 H, Creatinine 3.30 H, Estimated Creat Clear 14, Estimated GFR 14 L*, Est GFR ( Amer) 16 L*, Glucose 168 H D, Calcium 8.7 01/07/23 06:09: Sodium 135 L, Potassium 5.3 H, Chloride 102, Carbon Dioxide 27, Anion Gap 11.3, BUN 51 H, Creatinine 2.90 H, Estimated Creat Clear 18, Estimated GFR 16 L*, Est GFR ( Amer) 19 L*, Glucose 87 D, Calcium 8.1 L, Phosphorus 4.1, Magnesium 2.1 I & O for Last 24 hours: Intake & Output 01/04/23 01/05/23 01/06/23 01/07/23 23:59 23:59 23:59 23:59 Intake Total 240 / 1340 1100 / 1100 Output Total 500 / 500 0 / 0 Balance -260 / 840 1100 / 1100 Weight 62.596 kg 69.031 kg Constitutional Constitutional: no acute distress, chronically ill appearing and cooperative *Routine HEENT Exam Head: Present normocephalic Eye: Present EOMI and PERRL ENT: Present mucous membranes moist *Routine Neck Exam Neck: Present supple; Absent lymphadenopathy *Routine Respiratory Exam Respiratory: Present CTA bilaterally, normal respiratory effort and symmetric chest movement *Routine Cardiovascular Exam Cardiovascular: Present RRR and murmur *Routine Abdominal Exam Abdominal: Present soft and normoactive bowel sounds; Absent tenderness *Routine Extremities Exam Extremities: Present pulses intact and normal capillary refill; Absent cyanosis, clubbing or edema Comments: Pelvic rim tenderness *Routine Skin Exam Skin: Present warm; Absent rash *Routine Neurological Exam Neurological: Present alert, oriented X3, moving all extremities, normal tone, vision grossly intact, hearing grossly intact and normal speech Routine Psychiatric Exam Psychiatric: Present normal affect, normal thought process, scoop operator
--- NOTE | 2023-01-07 09:47 | HMH.PTEV ---
Physical Therapy Evaluation Rehab PT IP Evaluation Start: 01/06/23 17:23 Freq: ONCE Status: Active Protocol: Document 01/07/23 09:43 PHORNE (Rec: 01/07/23 09:47 PHORNE [id number]) Subjective/History History History 77 yowf adm to [facility] after ground level fall at home with resulting L sup/inf pubic rami fxs, ARIES, and hyperkalemia. She is generally independent with all mobility at baseline without an AD. She does have a RW and BSC at home is necessary. She plans to d/c to her daughter's home, who is available for 24 hr assist. Subjective Subjective She c/o pain in the L LE with WBing activity. Rehab PT IP Eval Objective Appearance Patient Behavior Appropriate Patient Orientation Person,Place,Time Difficulty following instructions none Speech Pattern Clear Ambulation Patient Able to Ambulate Yes Ambulation Observation IP General Gait Pattern Observation Antalgic Gait Ambulation Distance (feet) 15 Ambulation Assistive Device Rolling Walker Ambulation Ability Contact Guard/Hand Hold Balance Ability to Arise Able, uses arms to help Sitting Balance Steady, safe Standing Balance Steady, wide stance Dynamic Sitting Balance Ability Good Dynamic Standing Balance Ability Fair Transfers Bed Transfer Ability Contact Guard/Hand Hold Chair Transfer Ability Contact Guard/Hand Hold Sit to Stand Bed Transfer Ability Contact Guard/Hand Hold Sit to Stand Chair Transfer Ability Contact Guard/Hand Hold ROM All Extremities PT ROM Status WFL MMT All Extremities PT MMT WFL Abnormal MMT Grade L LE grossly 3/5 Rehab PT IP prob,goals,plan Problems Date of Evaluation: 01/07/23 PT IP Problems Bed Mobility,Transfers,Gait Rehab Potential Rehab Potential Good Plan PT Intervention Plan Bed Mobility,Transfers,Gait, Therapeutic Exercise PT Plan Frequency BID Duration LOS Discharge Goals Bed Transfer Ability Supervision/Stand by Sit to Stand Chair Transfer Ability Supervision/Stand by Ambulation Assistive Device Rolling Walker Ambulation Distance (feet) 20 Discharge Plan PT Discharge Plan Pt is appropriate to return home with family assist once
--- NOTE | 2023-01-07 09:54 | HMH.OTEV ---
OT Inpatient Evaluation Rehab OT IP Evaluation Start: 01/06/23 17:23 Freq: ONCE Status: Active Protocol: Document 01/07/23 09:48 SHERRELLBREANNA (Rec: 01/07/23 09:53 MARIA GUADALUPEJENN [id number]) Rehab OT IP Assessment Subjective History This is a 77-year-old female who presents to [facility] emergency department at the request of urgent treatment center for pelvic pain over 6 days. She is accompanied by her daughter Kezia who she designates as her POA. Her past medical history is significant for heart failure with reduced ejection fraction secondary to ischemic cardiomyopathy, AICD , degenerative disc disease lumbar spine, coronary artery disease, chronic kidney disease stage IIIb, mood disorder and hypothyroidism. She reports that she was in her usual state of health sitting in her recliner at home when she saw a snake in her house she jumped up fell and experienced pelvic pain. She remained at home taking 2 Aleve daily to assist with the pain. Her pain is characterized as throbbing, constant and occasionally sharp. It is rated as greater than 5 on a 1-10 pain scale. It is not improving. She is unable to complete her activities of daily living. She reports her pain did not improve so she sought care at an urgent treatment center and subsequently referred to the ED. In the ED plain x-ray of the pelvis identified superior and inferior pubic ramus fracture on the left. Her laboratory evaluation was concerning for a BUN of 45 and a creatinine of 3.3 with her usual creatinine baseline 1.5.
--- NOTE | 2023-01-07 10:00 | EXP.ORTH.CON ---
History of Present Illness *Admission Date: 01/06/23 *Reason for visit:: Left pubic rami fractures *History of present illness: Ms. Arevalo is a 77-year-old female patient admitted to the acute inpatient service after presenting to the [facility] emergency department with pelvic pain for approximately 1 week. This morning the patient is sitting up comfortably in a chair at the bedside and her daughter Kezia is present. She states that approximately 1 week ago she was sitting in a chair reading late at night, when she believes that she saw a snake in her house, causing her to jump up and fall onto her left side. She reports that she had immediate left-sided pelvic pain at that time but did not immediately seek treatment. She states that she has been able to ambulate with the use of a walker and has been taking Aleve at home for her pain. She states that her pain is relieved with rest and worse with weightbearing and activity. When her pain failed to improve, she presented to the [facility] urgent care for further evaluation. Today the patient continues to report left hip pain but states it is well controlled with as needed pain medication and rest. She has been ambulating with the use of a walker and states that she has been managing this well. No history of any distal tingling/numbness. At baseline she states that she lives in her own home and typically ambulates without the use of any walking aids. She denies any antecedent hip pain. Her past medical history significant for heart failure, ischemic cardiomyopathy, AICD, degenerative disc disease, coronary artery disease, chronic kidney disease, mood disorder, and hypothyroidism. She denies any other symptoms or concerns at this time. [facility] Disclaimer: The information contained in this section may have been updated after the patient was seen, as this information can be updated by other users. 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 Depression Gout HLD (hyperlipidemia) Hypothyroidism Microcytic anemia NADIA (obstructive sleep apnea) Vitamin B12 deficiency Surgical History AICD (automatic cardioverter/defibrillator) present H/O heart artery stent History of appendectomy History of History of cholecystectomy History of hysterectomy Previous back surgery Family History Grandmother Coronary artery disease Mother Hypertension Father Hypertension Kidney disease Social History Smoking Status: Never smoker second hand exposure: No alcohol intake: never substance use type: denies use current occupational status: retired Travel in the last 8 weeks: Inside the [place] household members: spouse housing: house current occupational exposures/hazards: No caffeine: Yes Review of Systems Constitutional Constitutional: Denies headache(s) and Denies weakness ENT Ears, Nose, Mouth, and Throat: Denies dizziness and Denies headache(s) *Musculoskeletal Musculoskeletal: Denies numbness *Neurologic Neurologic: Denies dizziness, Denies headache(s), Denies numbness and Denies weakness Meds Home Medications and Allergies Home Medications Medication Instructions Recorded Confirmed Type aspirin 81 mg tablet,delayed 81 mg PO [facility] health 12/03/17 01/06/23 History release (Adult Low Dose Aspirin) atorvastatin 80 mg tablet 80 mg PO DAILY Cholesterol #90 tabs 04/19/22 01/06/23 Rx carvedilol 25 mg tablet 25 mg PO BID BLOOD PRESSURE #60 06/18/22 01/06/23 Rx tabs spironolactone 25 mg tablet 25 mg PO Q OTHER DAY Fluid 07/26/22 01/06/23 History al
[2023-01-07 10:02] LABS: INR 0.95 (0.9-1.1); Prothrombin Time 10.3 seconds (10.1-12.5)
[2023-01-07 10:05] LABS: Basophils # 0.1 K/mm3 (0-0.2); Eosinophils # 0.3 K/mm3 (0.0-0.4); Eosinophils % 3.3 % (0.1-12.0); Hematocrit 34.7 % (37.0-47.0); Hemoglobin 11.1 g/dL (12.2-16.2); Lymphocytes % 21.6 % (10-50); Mean Corpuscular HGB Conc 32.1 g/dL (31.8-35.4); Mean Corpuscular Hemoglobin 25.3 pg (27.0-31.2); Mean Platelet Volume 8.3 fl (7.4-10.4); Monocytes # 0.6 K/mm3 (0.1-1.0); Monocytes % 6.5 % (1.7-9.3); Neutrophils # 6.3 K/mm3 (1.8-7.8); Neutrophils % 67.6 % (37.0-80.0); Platelet Count 280 K/mm3 (142-424); White Blood Count 9.3 K/mm3 (4.8-10.8)
[2023-01-07 11:21] LABS: Hemoglobin A1C 6.9 % (4.0-6.0)
--- NOTE | 2023-01-07 11:34 | CT_ITS ---
FINAL REPORT TECHNIQUE: Axial images through the pelvis were performed by computed tomography. This study was performed with techniques to keep radiation doses as low as reasonably achievable (ALARA). Individualized dose reduction techniques using automated exposure control or adjustment of mA and/or kV according to the patient's size were employed. CLINICAL HISTORY: left pubic rami fractures FINDINGS: There are acute fractures of the left superior and inferior pubic rami. No additional fractures are identified. There is degenerative disease of the hips and sacroiliac joints bilaterally. There is enlargement of the obturator muscles on the left, likely represents a hematoma. There remaining soft tissues are without acute abnormality. IMPRESSION: Fractures of the left superior and inferior pubic rami. Presumed hematoma of the left obturator muscles. Reviewed, Interpreted and Dictated by Agueda Patel MD Transcribed by Loly Bhatt Authenticated and [facility]
--- NOTE | 2023-01-07 13:24 | PC.NURSE ---
PT IS SITTING UP IN THE CHAIR. ALERT AND ORIENTED X4. AMBULATES WELL WITH WALKER AND STANDBY ASSIST. PARTICIPATES WITH PHYSICAL THERAPY. TOLERATED SHOWER THIS SHIFT. MEDICATED PER MAR FOR DISCOMFORT. LUNG SOUNDS CLEAR. ABDOMEN SOFT/NON TENDER WITH ACTIVE BOWEL SOUNDS. WILL CONTINUE TO MONITOR.
--- NOTE | 2023-01-07 14:43 | CARE MANAGER ---
Addendum entered by Danna Carbajal RN 01/08/23 15:54: [facility] will start services on 01/10/23 Addendum entered by Ashley Cortes RN 01/08/23 15:33: Referral faxed to [facility]. Original Note: Met with patient to discuss discharge planning needs. Patient plans to discharge to daughter's home with services. Patient is planned for discharge home tomorrow, Patient choice signed and I will fax referral to [facility].
--- NOTE | 2023-01-07 17:28 | CA_ITS ---
APPROVED REPORT EXAM: Comprehensive 2D, Doppler, and color-flow Echocardiogram Belly Roller: Gianna Medina RDCS Ht: 5 ft 1 in Wt: 152lbs BSA: 1.68 BP: 116/73 mmHg Indications: CM,AICD,CAD 2D Dimensions LVOT 1.85 cm (M/F) 1.5-2.5 M-Mode Dimensions RVDd 2.78 cm (0.9-2.6) LA Diam 3.96 cm (1.9-4.0) LVDd 4.55 cm (3.5-5.7) Ao Diam 2.91 cm (2.0-3.7) LVDs 3.10 cm (3.5-5.7) IVSd 0.72 cm (0.6-1.1) PWd 0.97 cm (0.6-1.1) EF (Teich) 60.10% FS 31.90% EDV (Teich) 94.90 mL ESV (Teich) 37.90 mL LV Diastology E Decel Time 160.00 (160-240 msec) E/A Ratio 0.8 MED E' 5.80 (< 7 cm/sec) E'/MED E' Ratio 13.02 (>14) LAT E' 5.10 (<10 cm/sec) E/LAT E' Ratio 14.80 (>14) Mitral Valve MV E Max Abdelrahman. 76.00 (40-130 cm/s) MV A Velocity 91.00 (40-130 cm/s) E/A Ratio 0.83 MV Decel. Time 160.00 (160-240 ms) MV PHT 47.00 ms Left Ventricle Left atrium is mildly enlarged, left ventricle is normal size mild concentric left ventricular hypertrophy, estimated ejection fraction 50% with no obvious regional wall motion abnormality, grade 1 diastolic dysfunction seen without tissue Doppler evidence of raise left atrial pressure. Right Ventricle Right atrium and right ventricular normal size and contractility, AICD lead seen in right ventricle. Aortic Valve Aortic valve is minimally thickened and fibrosed there is no aortic stenosis aortic insufficiency. Mitral Valve Mitral valve is grossly normal, there is trace mitral regurgitation. Tricuspid Valve Tricuspid valve grossly normal, there is trace tricuspid regurgitation, tricuspid regurgitation jet plus is inadequate for calculation of the right ventricular systolic pressure. Pulmonic Valve Pulmonic valve is poorly visualized. Great Vessels Aortic root is normal size. Inferior vena cava normal 7 normal inspiratory collapse. Pericardium No significant pericardial effusion noted. Conclusion 1. Mildly enlarged left atrium, normal left ventricular size, mild concentric left ventricular hypertrophy, estimated ejection fraction 50% with no regional wall motion abnormality, grade 1 diastolic dysfunction seen without tissue Doppler evidence of raise left atrial pressure. 2. Trace mitral and tricuspid regurgitation. 3. No significant pericardial effusion noted. 4. Inferior vena cava is normal size with normal inspiratory collapse. Electronically signed by : Donovan Whitfield MD 01/07/2023 17:03:34
[2023-01-08] VITALS: BP 110/38; PULSE 72; RESP 16; TEMP 36.6; O2SAT 91
[2023-01-08 04:00] VITALS: BP 122/60; PULSE 72; RESP 16; TEMP 36.5; O2SAT 94; BMI 30.2
--- NOTE | 2023-01-08 04:41 | PC.NURSE ---
Pt. is aox 4 and needs stand by assist times one with her walker. No changes noted.
[2023-01-08 07:04] LABS: Chloride 106 mmol/L (98-107); Sodium 138 mmol/L (136-145)
[2023-01-08 07:05] LABS: Potassium 5.1 mmoL/L (3.5-5.1)
[2023-01-08 07:08] LABS: Anion Gap 9.1 mEq/L (5-15); Blood Urea Nitrogen 41 mg/dl (7-17); Calcium 8.2 mg/dl (8.4-10.2); Carbon Dioxide 28 mmol/L (22.0-30.0); Creatinine Clearance Estimated 19 mL/min (50-200); Estimated Glomerular Filt Rate 16 ml/min (>60); GFR (African American) 19 ML/MIN (>60); Glucose 103 mg/dl (74-100)
[2023-01-08 07:10] LABS: Basophils # 0.1 K/mm3 (0-0.2); Basophils % 0.8 % (0.1-2.0); Eosinophils # 0.3 K/mm3 (0.0-0.4); Eosinophils % 3.9 % (0.1-12.0); Hematocrit 32.2 % (37.0-47.0); Hemoglobin 10.3 g/dL (12.2-16.2); Lymphocytes % 25.3 % (10-50); Mean Corpuscular HGB Conc 31.9 g/dL (31.8-35.4); Mean Corpuscular Hemoglobin 25.7 pg (27.0-31.2); Mean Corpuscular Volume 80.4 fl (81-99); Mean Platelet Volume 8.8 fl (7.4-10.4); Monocytes # 0.6 K/mm3 (0.1-1.0); Monocytes % 7.2 % (1.7-9.3); Neutrophils # 5.1 K/mm3 (1.8-7.8); Neutrophils % 62.8 % (37.0-80.0); Platelet Count 258 K/mm3 (142-424); Red Cell Distribution Width 18.9 % (11.5-17.5); White Blood Count 8.1 K/mm3 (4.8-10.8)
[2023-01-08 08:00] VITALS: BP 116/61; PULSE 80; RESP 18; TEMP 36.5; O2SAT 100
--- NOTE | 2023-01-08 09:26 | EXP.PN ---
Subjective *Date: 01/08/23 *Time: 09:26 Interval history: Date of service 01/08/2023 The patient reports improved pain control. She reports evaluations by PT and OT. Nursing staff report that she remains afebrile with stable vital signs and saturating appropriately on room air. We have reviewed and discussed her morning labs. I have personally interpreted her laboratory studies as follows: CBC with a normal white blood cell count which is improved, hemoglobin 10.3 which is stable, hematocrit of 32, platelet count 258. Her electrolytes identify sodium 138, potassium 5.1, chloride 106, CO2 28, BUN 41, creatinine 2.9 which has remained the same to yesterday. Her hemoglobin A1c is 6.9%. I have personally interpreted her echo with an EF of 50% and grade 1 diastolic dysfunction. Exam Data for Last 24 hours Vital signs and Labs for Last 24 Hours: Temp Pulse Resp BP Pulse Ox 97.7 F 80 18 116/61 100 01/08/23 08:00 01/08/23 08:00 01/08/23 08:00 01/08/23 08:00 01/08/23 08:00 Laboratory Results - last 24 hr 01/07/23 09:40: WBC 9.3 D, RBC 4.40, Hgb 11.1 L, Hct 34.7 L, MCV 79.0 L, MCH 25.3 L, MCHC 32.1, RDW 19.0 H, Plt Count 280, MPV 8.3, Neut % (Auto) 67.6, Lymph % (Auto) 21.6, Runnels % (Auto) 6.5, Eos % (Auto) 3.3, Baso % (Auto) 1.0, Neut # (Auto) 6.3, Lymph # (Auto) 2.0, Runnels # (Auto) 0.6, Eos # (Auto) 0.3, Baso # (Auto) 0.1 01/07/23 09:40: PT 10.3, INR 0.95 01/07/23 09:40: Hemoglobin A1c 6.9 H 01/08/23 06:10: WBC 8.1, RBC 4.00 L, Hgb 10.3 L, Hct 32.2 L, MCV 80.4 L, MCH 25.7 L, MCHC 31.9, RDW 18.9 H, Plt Count 258, MPV 8.8, Neut % (Auto) 62.8, Lymph % (Auto) 25.3, Runnels % (Auto) 7.2, Eos % (Auto) 3.9, Baso % (Auto) 0.8, Neut # (Auto) 5.1, Lymph # (Auto) 2.0, Runnels # (Auto) 0.6, Eos # (Auto) 0.3, Baso # (Auto) 0.1 01/08/23 06:10: Sodium 138, Potassium 5.1, Chloride 106, Carbon Dioxide 28, Anion Gap 9.1, BUN 41 H, Creatinine 2.90 H, Estimated Creat Clear 19, Estimated GFR 16 L*, Est GFR ( Amer) 19 L*, Glucose 103 H, Calcium 8.2 L I & O for Last 24 hours: Intake & Output 01/05/23 01/06/23 01/07/23 01/08/23 23:59 23:59 23:59 23:59 Intake Total 240 / 1340 3789 / 3789 1140 / 1140 Output Total 500 / 500 0 / 0 0 / 0 Balance -260 / 840 3789 / 3789 1140 / 1140 Weight 62.596 kg 69 kg 72.484 kg Microbiology Reports for the Last 24 Hours: Microbiology 01/06/23 13:06 Urine,Clean Catch Urine Culture - Preliminary NO GROWTH AFTER 24 HOURS Constitutional Constitutional: no acute distress, chronically ill appearing and cooperative *Routine HEENT Exam Head: Present normocephalic Eye: Present EOMI and PERRL ENT: Present mucous membranes moist *Routine Neck Exam Neck: Present supple; Absent lymphadenopathy *Routine Respiratory Exam Respiratory: Present CTA bilaterally, normal respiratory effort and symmetric chest movement *Routine Cardiovascular Exam Cardiovascular: Present RRR and murmur *Routine Abdominal Exam Abdominal: Present soft and normoactive bowel sounds; Absent tenderness *Routine Extremities Exam Extremities: Present pulses intact and normal capillary refill; Absent cyanosis, clubbing or edema Comments: Pelvic rim tenderness *Routine Skin Exam Skin: Present warm; Absent rash *Routine Neurological Exam Neurological: Present alert, oriented X3, moving all extremities, normal tone, vision grossly intact, hearing grossly intact and normal speech Routine Psychiatric Exam Psychiatric: Present normal affect, normal thought process, cooperative, good insight and good judgment Assessment and Plan *Assessment and plan (1) ARIES (acute kidney injury): Status: Acute Category: Medical Code(s): N17.9 - Acute kidney failure, unspecified (2) Fracture of pubic ramus: Status: Acute Qualifiers: Encounter type: initial encounter Fracture type: closed Laterality: left Qualified Code(s): S32.592A - Other specified fracture of left pubis, initial encount
--- NOTE | 2023-01-08 09:45 | EXP.ORTH.PN ---
Subjective *Date: 01/08/23 *Time: 07:20 Interval history: Ms. Arevalo is a 77-year-old female patient admitted to the acute inpatient service with left superior and inferior pubic rami fractures. This morning the patient is sitting up comfortably in a chair at the bedside. She continues to report left hip/groin pain but states it is well controlled with as needed pain medication and rest. She has been ambulating weightbearing as tolerated with use of a walker and assistance from physical therapy. No history of any distal tingling/numbness. She reports that she has been eating and drinking well and denies any episodes of nausea or vomiting. She denies any other symptoms or concerns at this time. Ortho Exam (Inpt) Vital signs and Labs for Last 24 Hours: Temp Pulse Resp BP Pulse Ox 97.7 F 80 18 116/61 100 01/08/23 08:00 01/08/23 08:00 01/08/23 08:00 01/08/23 08:00 01/08/23 08:00 Laboratory Results - last 24 hr 01/07/23 09:40: WBC 9.3 D, RBC 4.40, Hgb 11.1 L, Hct 34.7 L, MCV 79.0 L, MCH 25.3 L, MCHC 32.1, RDW 19.0 H, Plt Count 280, MPV 8.3, Neut % (Auto) 67.6, Lymph % (Auto) 21.6, Woodford % (Auto) 6.5, Eos % (Auto) 3.3, Baso % (Auto) 1.0, Neut # (Auto) 6.3, Lymph # (Auto) 2.0, [place]ford # (Auto) 0.6, Eos # (Auto) 0.3, Baso # (Auto) 0.1 01/07/23 09:40: PT 10.3, INR 0.95 01/07/23 09:40: Hemoglobin A1c 6.9 H 01/08/23 06:10: WBC 8.1, RBC 4.00 L, Hgb 10.3 L, Hct 32.2 L, MCV 80.4 L, MCH 25.7 L, MCHC 31.9, RDW 18.9 H, Plt Count 258, MPV 8.8, Neut % (Auto) 62.8, Lymph % (Auto) 25.3, [place]ford % (Auto) 7.2, Eos % (Auto) 3.9, Baso % (Auto) 0.8, Neut # (Auto) 5.1, Lymph # (Auto) 2.0, [place] # (Auto) 0.6, Eos # (Auto) 0.3, Baso # (Auto) 0.1 01/08/23 06:10: Sodium 138, Potassium 5.1, Chloride 106, Carbon Dioxide 28, Anion Gap 9.1, BUN 41 H, Creatinine 2.90 H, Estimated Creat Clear 19, Estimated GFR 16 L*, Est GFR ( Amer) 19 L*, Glucose 103 H, Calcium 8.2 L I & O for Labs for Last 24 Hours: Intake & Output 01/05/23 01/06/23 01/07/23 01/08/23 23:59 23:59 23:59 23:59 Intake Total 240 / 1340 3789 / 3789 1140 / 1140 Output Total 500 / 500 0 / 0 0 / 0 Balance -260 / 840 3789 / 3789 1140 / 1140 Weight 138 lb 0.009 oz 152 lb 1.903 oz 159 lb 12.8 oz Microbiology Reports for the Last 24 Hours: Microbiology 01/06/23 13:06 Urine,Clean Catch Urine Culture - Preliminary NO GROWTH AFTER 24 HOURS Head: Present normocephalic and atraumatic Eyes: Present as per HPI ENT: Present normal exam Neck: Present normal inspection, full ROM and trachea midline; Absent lymphadenopathy Respiratory: Present normal respiratory effort, able to speak in complete sentences and symmetric chest movement; Absent accessory muscle use Cardiac: Present Reg Rate and Rhythm GI: Present soft; Absent tenderness Comment:: Upon examination of the lower extremities: The limb lengths are grossly equal. Upon examination of the left hip: The skin is intact. No lacerations, abrasions, wounds, ecchymosis, or erythema noted. The anterior hip is mildly tender to palpation. Attempted movements of the left hip are somewhat painful. Thigh and calf are soft and nontender; Homans' sign is negative. No clinical evidence of DVT or compartment syndrome noted. Posterior tibial pulse 1+; capillary refill is brisk. Sensation to light touch is grossly intact throughout. Patient is active mobilizing the foot, ankle, and toes. Diagnostic imaging: CT scan of the pelvis performed at [facility] on 01/07/2023 reviewed along with radiologist report and compared to previous imaging. CT of the pelvis redemonstrates minimally displaced left superior and inferior pubic rami fractures. Radiologist report is as follows: FINDINGS: There are acute fractures of the left superior and inferior pubic rami. No additional fractures are identified. There is degenerative disease of the hips and sacroiliac joints bilaterally. There is enlargement of the o
[2023-01-08 12:00] VITALS: BP 124/56; PULSE 68; RESP 20; TEMP 36.5; O2SAT 96
--- NOTE | 2023-01-08 14:46 | PC.NURSE ---
Pt is alert and oriented x4. She was up to the chair for most of this shift and tolerated well. She ambulated to the bathroom with a walker and standby assist. Intense pain reported with ambulation. PRN pain med administered x1 with favorable results. Appetite has been good. IV to RFA was infiltrated this am. New IV placed to LFA and fluids increased to 150 mls/hr per mar. She denies any complaints at this time. Call light is within reach.
[2023-01-08 14:48] LABS: Chloride 107 mmol/L (98-107); Sodium 136 mmol/L (136-145)
[2023-01-08 14:49] LABS: Potassium 5.8 mmoL/L (3.5-5.1)
[2023-01-08 14:51] LABS: Blood Urea Nitrogen 41 mg/dl (7-17); Creatinine Clearance Estimated 22 mL/min (50-200); Estimated Glomerular Filt Rate 20 ml/min (>60); GFR (African American) 24 ML/MIN (>60)
[2023-01-08 14:52] LABS: Anion Gap 11.8 mEq/L (5-15); Calcium 8.5 mg/dl (8.4-10.2); Carbon Dioxide 23 mmol/L (22.0-30.0); Glucose 152 mg/dl (74-100)
--- NOTE | 2023-01-08 15:23 | EXP.DC.SUM ---
General Admission date:: 01/06/23 Discharge date: 01/08/23 HPI HPI HPI: Ms. Arevalo is a 77-year-old female patient admitted to the acute inpatient service after presenting to the [facility] emergency department with pelvic pain for approximately 1 week. This morning the patient is sitting up comfortably in a chair at the bedside and her daughter Kezia is present. She states that approximately 1 week ago she was sitting in a chair reading late at night, when she believes that she saw a snake in her house, causing her to jump up and fall onto her left side. She reports that she had immediate left-sided pelvic pain at that time but did not immediately seek treatment. She states that she has been able to ambulate with the use of a walker and has been taking Aleve at home for her pain. She states that her pain is relieved with rest and worse with weightbearing and activity. When her pain failed to improve, she presented to the [facility] urgent care for further evaluation. Today the patient continues to report left hip pain but states it is well controlled with as needed pain medication and rest. She has been ambulating with the use of a walker and states that she has been managing this well. No history of any distal tingling/numbness. At baseline she states that she lives in her own home and typically ambulates without the use of any walking aids. She denies any antecedent hip pain. Her past medical history significant for heart failure, ischemic cardiomyopathy, AICD, degenerative disc disease, coronary artery disease, chronic kidney disease, mood disorder, and hypothyroidism. She denies any other symptoms or concerns at this time. Hospital Course Hospital Course Hospital Course: The patient was admitted to the medical unit with orthopedic consultation. She was started on IV fluid resuscitation and her hyperkalemia was treated with Lokelma therapy. Her Jardiance and spironolactone were held. Her BMP was trended and identified improved results. Her creatinine improved. Her usual creatinine is 1.8 and on discharge her creatinine was 2.4. Her daughter Oksana remained at her bedside throughout her stay. Orthopedic recommended non-operative conservative management. PT and OT evaluated the patient and recommended home with ongoing PT OT evaluations. With her history of chronic heart failure with reduced ejection fraction an echo was acquired that identified an ejection fraction of 50% with grade 1 diastolic dysfunction. On discharge we are recommending that she continue to hold her Jardiance and spironolactone therapy until follow-up with her PCP to have further conversations about her medication intervention. For her microcytic anemia iron replacement therapy was added. Vitamin B12 deficiency was noted as well and she received daily B12 injections. She identified improvement and inquired about discharge to her daughter's home. We have recommended ongoing B12 replacement therapy, a BMP with her PCP follow-up and to consider discontinuing her Jardiance therapy and spironolactone therapy. We recommend monthly BMP evaluations until her creatinine stabilizes. She understands the importance of avoiding all NSAID therapy and will be discharged with a short course of hydrocodone until her pelvic fracture heals. Exam Data for Last 24 hours Vital signs and Labs for Last 24 Hours: Temp Pulse Resp BP Pulse Ox 97.7 F 68 20 124/56 L 96 01/08/23 12:00 01/08/23 12:00 01/08/23 12:00 01/08/23 12:00 01/08/23 12:00 Laboratory Results - last 24 hr 01/08/23 06:10: WBC 8.1, RBC 4.00 L, Hgb 10.3 L, Hct 32.2 L, MCV 80.4 L, MCH 25.7 L, MCHC 31.9, RDW 18.9 H, Plt Count 258, MPV 8.8, Neut % (Auto) 62.8, Lymph % (Auto) 25.3, Person % (Auto) 7.2, Eos % (Auto) 3.9, Baso % (Auto) 0.8, Neut # (Auto) 5.1, Lymph # (Auto) 2.0, Person # (Auto) 0.6, Eos # (Auto) 0.3, Baso # (Auto) 0.1 01/08/23 06:10: Sodium 138, Potassium 5.1, Chlor
--- NOTE | 2023-01-08 15:45 | HMH.PHAINT1 ---
Pharmacy Intervention Comments: Discussed discharge medications with patient. Patient verbalized understanding and had no questions at this time.
--- NOTE | 2023-01-08 16:41 | PC.NURSE ---
Pt would benefit from a walker due to gait and mobility issues
== END 2023-01-08 16:35 | disposition home health service (06) ==
LOC: UTC 12:47 → ER 14:15 → 2ND 15:57
PROVIDERS: Nurse Practitioner Family; Admitting Provider Family Medicine; Emergency Provider Emergency Medicine; PCP Family Medicine; Visit Provider Family Medicine
DX: S32.512A Fracture of superior rim of left pubis, initial encounter for closed fracture (principal); N17.9 Acute kidney failure, unspecified; I50.22 Chronic systolic (congestive) heart failure; I25.118 Atherosclerotic heart disease of native coronary artery with other forms of angina pectoris; E87.5 Hyperkalemia; N18.32 Chronic kidney disease, stage 3b; E53.8 Deficiency of other specified B group vitamins; D50.9 Iron deficiency anemia, unspecified; E03.9 Hypothyroidism, unspecified; I25.5 Ischemic cardiomyopathy; I13.0 Hypertensive heart and chronic kidney disease with heart failure and stage 1 through stage 4 chronic kidney disease, or unspecified chronic kidney disease; W07.XXXA Fall from chair, initial encounter; Y92.019 Unspecified place in single-family (private) house as the place of occurrence of the external cause; Z20.822 Contact with and (suspected) exposure to COVID-19; N39.0 Urinary tract infection, site not specified; E11.9 Type 2 diabetes mellitus without complications; Z95.810 Presence of automatic (implantable) cardiac defibrillator
CPT/HCPCS: G0378; 36415; 72170; 72192; 80048; 80053; 81003; 82607; 83036; 83540; 83550; 83735; 83880; 84100; 84145; 84484; 85025; 85610; 87086; 93005; 93306; 97116; 97162; 97165; 97530; 99285; C9803; U0003; U0005

== ENCOUNTER → 2023-01-11 21:45 | Outpatient (CLI) | payer MEDICARE, SELFPAY ==
[2023-01-11 17:47] LABS: Basophils # 0.1 K/mm3 (0-0.2); Basophils % 0.6 % (0.1-2.0); Eosinophils # 0.4 K/mm3 (0.0-0.4); Eosinophils % 3.3 % (0.1-12.0); Hematocrit 38.2 % (37.0-47.0); Hemoglobin 11.9 g/dL (12.2-16.2); Lymphocytes % 18.8 % (10-50); Mean Corpuscular HGB Conc 31.2 g/dL (31.8-35.4); Mean Corpuscular Hemoglobin 25.8 pg (27.0-31.2); Mean Corpuscular Volume 82.6 fl (81-99); Mean Platelet Volume 9.5 fl (7.4-10.4); Monocytes # 0.6 K/mm3 (0.1-1.0); Monocytes % 5.7 % (1.7-9.3); Neutrophils # 7.6 K/mm3 (1.8-7.8); Neutrophils % 71.6 % (37.0-80.0); Platelet Count 276 K/mm3 (142-424); Red Blood Count 4.63 M/mm3 (4.20-5.40); Red Cell Distribution Width 18.8 % (11.5-17.5); White Blood Count 10.6 K/mm3 (4.8-10.8)
[2023-01-11 18:02] LABS: Anion Gap 10.6 mEq/L (5-15); Blood Urea Nitrogen 44 mg/dl (7-17); Calcium 9.5 mg/dl (8.4-10.2); Carbon Dioxide 27 mmol/L (22.0-30.0); Chloride 107 mmol/L (98-107); Estimated Glomerular Filt Rate 23 ml/min (>60); GFR (African American) 28 ML/MIN (>60); Glucose 103 mg/dl (74-100); Potassium 5.6 mmoL/L (3.5-5.1); Sodium 139 mmol/L (136-145)
== END ==
PROVIDERS: PCP Family Medicine; Visit Provider Family Medicine
DX: N17.9 Acute kidney failure, unspecified (principal); D50.9 Iron deficiency anemia, unspecified
CPT/HCPCS: 80048; 85025

== ENCOUNTER → 2023-01-30 15:10 | Outpatient (CLI) | payer MEDICARE, SELFPAY ==
[2023-01-30 16:15] LABS: Basophils # 0.1 K/mm3 (0-0.2); Basophils % 0.6 % (0.1-2.0); Eosinophils # 0.3 K/mm3 (0.0-0.4); Eosinophils % 3.2 % (0.1-12.0); Hematocrit 31.1 % (37.0-47.0); Hemoglobin 9.9 g/dL (12.2-16.2); Lymphocytes # 2.1 K/mm3 (0.7-4.5); Mean Corpuscular HGB Conc 31.8 g/dL (31.8-35.4); Mean Corpuscular Hemoglobin 25.7 pg (27.0-31.2); Mean Platelet Volume 8.7 fl (7.4-10.4); Monocytes # 0.6 K/mm3 (0.1-1.0); Monocytes % 7.1 % (1.7-9.3); Neutrophils # 5.1 K/mm3 (1.8-7.8); Neutrophils % 63.1 % (37.0-80.0); Platelet Count 334 K/mm3 (142-424); Red Blood Count 3.84 M/mm3 (4.20-5.40); Red Cell Distribution Width 18.6 % (11.5-17.5)
[2023-01-30 17:47] LABS: Anion Gap 11.4 mEq/L (5-15); Blood Urea Nitrogen 47 mg/dl (7-17); Calcium 8.8 mg/dl (8.4-10.2); Carbon Dioxide 27 mmol/L (22.0-30.0); Chloride 104 mmol/L (98-107); Estimated Glomerular Filt Rate 34 ml/min (>60); GFR (African American) 41 ML/MIN (>60); Glucose 122 mg/dl (74-100); Potassium 4.4 mmoL/L (3.5-5.1); Sodium 138 mmol/L (136-145)
== END ==
PROVIDERS: PCP Family Medicine; Visit Provider Family Medicine
DX: I25.10 Atherosclerotic heart disease of native coronary artery without angina pectoris (principal); I10 Essential (primary) hypertension
CPT/HCPCS: 80048; 85025

== ENCOUNTER → 2023-03-05 20:10 | Outpatient (CLI) | payer MEDICARE, SELFPAY ==
[2023-03-05 20:53] LABS: Basophils # 0.1 K/mm3 (0-0.2); Basophils % 0.5 % (0.1-2.0); Eosinophils # 0.2 K/mm3 (0.0-0.4); Hematocrit 33.8 % (37.0-47.0); Hemoglobin 10.8 g/dL (12.2-16.2); Lymphocytes # 1.9 K/mm3 (0.7-4.5); Lymphocytes % 17.3 % (10-50); Mean Corpuscular HGB Conc 31.8 g/dL (31.8-35.4); Mean Corpuscular Hemoglobin 26.2 pg (27.0-31.2); Mean Corpuscular Volume 82.6 fl (81-99); Monocytes # 0.6 K/mm3 (0.1-1.0); Monocytes % 5.4 % (1.7-9.3); Neutrophils % 74.7 % (37.0-80.0); Platelet Count 256 K/mm3 (142-424); Red Cell Distribution Width 19.3 % (11.5-17.5); White Blood Count 10.7 K/mm3 (4.8-10.8)
[2023-03-05 21:07] LABS: Blood Urea Nitrogen 25 mg/dl (7-17); Calcium 9.1 mg/dl (8.4-10.2); Carbon Dioxide 23 mmol/L (22.0-30.0); Chloride 108 mmol/L (98-107); Estimated Glomerular Filt Rate 40 ml/min (>60); GFR (African American) 48 ML/MIN (>60); Glucose 114 mg/dl (74-100); Sodium 137 mmol/L (136-145)
== END ==
PROVIDERS: PCP Family Medicine; Visit Provider Family Medicine
DX: F32.A Depression, unspecified (principal); D50.9 Iron deficiency anemia, unspecified
CPT/HCPCS: 80048; 85025

== ENCOUNTER → 2023-06-17 17:09 | Outpatient (CLI) | payer MEDICARE, SELFPAY ==
[2023-06-17 16:16] LABS: Basophils % 0.5 % (0.1-2.0); Eosinophils # 0.3 K/mm3 (0.0-0.4); Eosinophils % 4.2 % (0.1-12.0); Hematocrit 35.1 % (37.0-47.0); Hemoglobin 10.7 g/dL (12.2-16.2); Lymphocytes % 26.8 % (10-50); Mean Corpuscular HGB Conc 30.6 g/dL (31.8-35.4); Mean Corpuscular Hemoglobin 25.7 pg (27.0-31.2); Mean Corpuscular Volume 84.2 fl (81-99); Mean Platelet Volume 9.9 fl (7.4-10.4); Monocytes # 0.5 K/mm3 (0.1-1.0); Monocytes % 6.1 % (1.7-9.3); Neutrophils # 4.6 K/mm3 (1.8-7.8); Neutrophils % 62.5 % (37.0-80.0); Platelet Count 245 K/mm3 (142-424); Red Blood Count 4.17 M/mm3 (4.20-5.40); Red Cell Distribution Width 16.5 % (11.5-17.5); Reticulocyte % (Auto) 1.4 % (0.9-3.2); White Blood Count 7.4 K/mm3 (4.8-10.8)
[2023-06-17 17:09] LABS: Alanine Aminotransferase 19 U/L (12-78); Albumin Level 3.7 g/dl (3.5-5.0); Albumin/Globulin Ratio 1.3 (1.1-1.8); Alkaline Phosphatase 266 U/L (38-126); Anion Gap 10.7 mEq/L (5-15); Aspartate Amino Transferase 28 U/L (14-36); Bilirubin,Total 0.5 mg/dl (0.2-1.3); Blood Urea Nitrogen 25 mg/dl (7-17); Calcium 9.5 mg/dl (8.4-10.2); Carbon Dioxide 23 mmol/L (22.0-30.0); Chloride 112 mmol/L (98-107); Chol/HDL Ratio 3.6 (1-3.5); Cholesterol 167 mg/dl (140-200); Estimated Glomerular Filt Rate 36 ml/min (>60); GFR (African American) 44 ML/MIN (>60); Globulin 2.9 g/dL (1.3-3.2); Glucose 119 mg/dl (74-100); HDL Cholesterol 46 mg/dl (40-60); Potassium 4.7 mmoL/L (3.5-5.1); Sodium 141 mmol/L (136-145); Total Protein,Serum 6.6 g/dl (6.3-8.2); Triglycerides 261 mg/dl (30-150); VLDL Cholesterol 52 mg/dL (0-40)
[2023-06-17 17:20] LABS: Direct LDL Cholesterol 72.22 mg/dL (100-129)
[2023-06-17 17:39] LABS: Thyroid Stimulating Hormone 2.42 uIU/mL (0.465-4.68)
== END ==
PROVIDERS: PCP Family Medicine; Visit Provider Family Medicine
DX: E03.9 Hypothyroidism, unspecified (principal); E78.5 Hyperlipidemia, unspecified; I25.10 Atherosclerotic heart disease of native coronary artery without angina pectoris; N18.32 Chronic kidney disease, stage 3b; E78.2 Mixed hyperlipidemia
CPT/HCPCS: 80053; 80061; 84443; 85025; 85044

== ENCOUNTER → 2023-09-18 10:53 | Outpatient (CLI) | payer MEDICARE, SELFPAY ==
[2023-09-17 16:46] LABS: Albumin Level 3.9 g/dl (3.5-5.0); Anion Gap 14.4 mEq/L (5-15); Blood Urea Nitrogen 20 mg/dl (7-17); Calcium 9.4 mg/dl (8.4-10.2); Carbon Dioxide 25 mmol/L (22.0-30.0); Chloride 104 mmol/L (98-107); Estimated Glomerular Filt Rate 43 ml/min (>60); GFR (African American) 53 ML/MIN (>60); Glucose 126 mg/dl (74-100); Phosphorous 3.6 mg/dl (2.5-4.5); Potassium 4.4 mmoL/L (3.5-5.1); Sodium 139 mmol/L (136-145)
== END ==
PROVIDERS: Visit Provider Nurse Practitioner Family
DX: N18.32 Chronic kidney disease, stage 3b (principal)
CPT/HCPCS: 80069

== ENCOUNTER 2023-12-31 16:43 | Outpatient (CLI) | payer MEDICARE, SELFPAY ==
[2023-12-31 16:45] LABS: Basophils # 0.1 K/mm3 (0-0.2); Basophils % 0.7 % (0.1-2.0); Eosinophils # 0.2 K/mm3 (0.0-0.4); Hematocrit 36.4 % (37.0-47.0); Lymphocytes # 2.1 K/mm3 (0.7-4.5); Lymphocytes % 25.5 % (10-50); Mean Corpuscular HGB Conc 32.9 g/dL (31.8-35.4); Mean Corpuscular Hemoglobin 28.1 pg (27.0-31.2); Mean Corpuscular Volume 85.3 fl (81-99); Mean Platelet Volume 9.9 fl (7.4-10.4); Monocytes # 0.6 K/mm3 (0.1-1.0); Monocytes % 6.7 % (1.7-9.3); Neutrophils # 5.4 K/mm3 (1.8-7.8); Platelet Count 209 K/mm3 (142-424); Red Blood Count 4.27 M/mm3 (4.20-5.40); Red Cell Distribution Width 17.8 % (11.5-17.5); White Blood Count 8.2 K/mm3 (4.8-10.8)
[2023-12-31 16:56] LABS: Alanine Aminotransferase 22 U/L (12-78); Albumin/Globulin Ratio 1.5 (1.1-1.8); Alkaline Phosphatase 150 U/L (38-126); Anion Gap 11.8 mEq/L (5-15); Aspartate Amino Transferase 54 U/L (14-36); Bilirubin,Total 0.7 mg/dl (0.2-1.3); Blood Urea Nitrogen 28 mg/dl (7-17); Calcium 9.7 mg/dl (8.4-10.2); Carbon Dioxide 27 mmol/L (22.0-30.0); Chloride 105 mmol/L (98-107); Chol/HDL Ratio 4.6 (1-3.5); Cholesterol 206 mg/dl (140-200); Estimated Glomerular Filt Rate 34 ml/min (>60); GFR (African American) 41 ML/MIN (>60); Globulin 2.6 g/dL (1.3-3.2); Glucose 126 mg/dl (74-100); HDL Cholesterol 45 mg/dl (40-60); Potassium 4.8 mmoL/L (3.5-5.1); Sodium 139 mmol/L (136-145); Total Protein,Serum 6.6 g/dl (6.3-8.2); Triglycerides 274 mg/dl (30-150); VLDL Cholesterol 55 mg/dL (0-40)
[2023-12-31 17:08] LABS: Direct LDL Cholesterol 82.88 mg/dL (100-129)
[2023-12-31 17:26] LABS: Thyroid Stimulating Hormone 2.38 uIU/mL (0.465-4.68)
[2023-12-31 17:28] LABS: Hemoglobin A1C 6.6 % (4.0-6.0)
== END 2023-12-31 23:59 ==
LOC: LAB.DROPOF 16:43
PROVIDERS: PCP Family Medicine; Visit Provider Family Medicine
DX: I10 Essential (primary) hypertension (principal); E78.5 Hyperlipidemia, unspecified; R73.9 Hyperglycemia, unspecified; E03.9 Hypothyroidism, unspecified
CPT/HCPCS: 80053; 80061; 83036; 84443; 85025

== ENCOUNTER 2024-01-14 19:46 | Outpatient (CLI) | payer MEDICARE, SELFPAY ==
[2024-01-14 16:55] LABS: Anion Gap 9.7 mEq/L (5-15); Blood Urea Nitrogen 25 mg/dl (7-17); Calcium 9.9 mg/dl (8.4-10.2); Carbon Dioxide 25 mmol/L (22.0-30.0); Chloride 108 mmol/L (98-107); Estimated Glomerular Filt Rate 40 ml/min (>60); GFR (African American) 48 ML/MIN (>60); Glucose 134 mg/dl (74-100); Potassium 4.7 mmoL/L (3.5-5.1); Sodium 138 mmol/L (136-145)
== END 2024-01-14 23:59 ==
PROVIDERS: PCP Family Medicine; Visit Provider Family Medicine
DX: N18.4 Chronic kidney disease, stage 4 (severe) (principal)
CPT/HCPCS: 80048

== ENCOUNTER 2024-04-23 14:34 | Outpatient (CLI) | payer MEDICARE, SELFPAY ==
[2024-04-23 14:57] LABS: Basophils % 0.5 % (0.1-2.0); Eosinophils # 0.2 K/mm3 (0.0-0.4); Hematocrit 36.9 % (37.0-47.0); Hemoglobin 11.6 g/dL (12.2-16.2); Lymphocytes # 2.2 K/mm3 (0.7-4.5); Mean Corpuscular HGB Conc 31.4 g/dL (31.8-35.4); Mean Corpuscular Hemoglobin 27.3 pg (27.0-31.2); Mean Corpuscular Volume 86.9 fl (81-99); Mean Platelet Volume 9.2 fl (7.4-10.4); Monocytes # 0.4 K/mm3 (0.1-1.0); Monocytes % 5.3 % (1.7-9.3); Neutrophils # 5.3 K/mm3 (1.8-7.8); Neutrophils % 65.1 % (37.0-80.0); Platelet Count 190 K/mm3 (142-424); Red Blood Count 4.25 M/mm3 (4.20-5.40); White Blood Count 8.2 K/mm3 (4.8-10.8)
[2024-04-23 17:52] LABS: Alanine Aminotransferase 25 U/L (12-78); Albumin Level 3.9 g/dl (3.5-5.0); Alkaline Phosphatase 159 U/L (38-126); Anion Gap 13.5 mEq/L (5-15); Aspartate Amino Transferase 33 U/L (14-36); Bilirubin,Direct 0.2 mg/dl (0.0-0.4); Bilirubin,Indirect 0.6 mg/dL (0.0-0.9); Bilirubin,Total 0.8 mg/dl (0.2-1.3); Bilirubin,Unconjugated 0.6 mg/dL (0.0-1.1); Blood Urea Nitrogen 28 mg/dl (7-17); Calcium 9.7 mg/dl (8.4-10.2); Carbon Dioxide 25 mmol/L (22.0-30.0); Chloride 106 mmol/L (98-107); Chol/HDL Ratio 3.1 (1-3.5); Cholesterol 160 mg/dl (140-200); Estimated Glomerular Filt Rate 29 ml/min (>60); GFR (African American) 35 ML/MIN (>60); Glucose 115 mg/dl (74-100); HDL Cholesterol 52 mg/dl (40-60); Magnesium 1.4 mg/dl (1.6-2.3); Potassium 4.5 mmoL/L (3.5-5.1); Sodium 140 mmol/L (136-145); Total Protein,Serum 6.6 g/dl (6.3-8.2); Triglycerides 202 mg/dl (30-150); VLDL Cholesterol 40 mg/dL (0-40)
[2024-04-23 18:05] LABS: Direct LDL Cholesterol 69.78 mg/dL (100-129)
[2024-04-23 18:11] LABS: Free T4 (Free Thyroxine) 1.17 ng/dl (0.78-2.19)
[2024-04-23 18:24] LABS: Thyroid Stimulating Hormone 3.05 uIU/mL (0.465-4.68)
== END 2024-04-23 23:59 | disposition home or self-care (01) ==
LOC: LAB 14:36
PROVIDERS: PCP Family Medicine; Visit Provider Internal Medicine
DX: I25.118 Atherosclerotic heart disease of native coronary artery with other forms of angina pectoris (principal); Z95.810 Presence of automatic (implantable) cardiac defibrillator; I50.22 Chronic systolic (congestive) heart failure; N18.4 Chronic kidney disease, stage 4 (severe); E78.2 Mixed hyperlipidemia; R53.83 Other fatigue
CPT/HCPCS: 36415; 80048; 80061; 80076; 83735; 84439; 84443; 85025

== ENCOUNTER 2024-05-05 07:47 | Outpatient (CLI) | payer MEDICARE, SELFPAY ==
--- NOTE | 2024-05-05 07:52 | CA_ITS ---
APPROVED REPORT EXAM: Comprehensive 2D, Doppler, and color-flow Echocardiogram Environmental Aide: Meghana Aaron CRT Ht: 5 ft 1 in Wt: 156lbs BSA: 1.70 BP: 127/66 mmHg Indications: Fatigue, CAD, Hyperlipidemia, Cardiomyopathy, CKD, AICD, EF 20% 2018, EF 50% 01/17 2D Dimensions LA Volume 15.20 mL LA Volume Index 8.94 mL/m2 (M/F) 16-34 M-Mode Dimensions RVDd 2.11 cm (0.9-2.6) LA Diam 3.09 cm (1.9-4.0) LVDd 4.20 cm (3.5-5.7) LVDs 3.26 cm (3.5-5.7) IVSd 1.32 cm (0.6-1.1) PWd 1.07 cm (0.6-1.1) EF (Teich) 45.50% FS 22.40% EDV (Teich) 78.60 mL TAPSE 1.58 (<1.7) ESV (Teich) 42.80 mL LV Diastology E Decel Time 150 (160-240 msec) E/A Ratio 0.7 MED A' 6.20 cm/s LAT A' 9.30 cm/s Aortic Valve AO Peak GR. 7.90 mmHg Mitral Valve MV E Max Abdelrahman. 78.0 (40-130 cm/s) MV A Velocity 118.0 (40-130 cm/s) E/A Ratio 0.66 MV PHT 44.0 ms Pulmonary Valve PV Peak Velocity 171.0 (50-150 cm/s) Tricuspid Valve TR P. Velocity 198.00 cm/s RAP Estimate 10.00 mmHg RVSP 25.70 mmHg Left Ventricle The left ventricle is normal size. Left ventricular systolic function is mildly to moderately decreased. There is increased LV wall thickness There is mild to moderate global Transmitral Doppler flow pattern suggests impaired LV relaxation. LVEF is 40% Right Ventricle The right ventricle is normal size. Right ventricle is mildly hypokinetic. There is a device present in the right ventricle. Atria The left atrium size is normal. The right atrium size is normal. The interatrial septum is not well-visualized. Aortic Valve The aortic valve is mildly thickened. There is no aortic valvular stenosis. Mild aortic regurgitation. Mitral Valve The mitral valve leaflets are mildly thickened. No evidence of mitral valve stenosis. Mild mitral regurgitation. Tricuspid Valve The tricuspid valve leaflets are thin and pliable. Trace tricuspid regurgitation. RVSP is normal. Pulmonic Valve The pulmonary valve is grossly normal in structure. Mild pulmonic regurgitation. Great Vessels The aortic root is normal in size. The ascending aorta is normal in size. IVC is normal in size and collapses >50% with inspiration. Pericardium Trivial pericardial effusion. No acute indications of tamponade. Other Information Study Quality: Technically Difficult Conclusion Technically difficult study due to poor acoustic windows. Mild to moderate reduction in LV systolic function (LVEF 40%). Normal RV size with mildly reduced RV function. Mild AI, mild MR Compared to prior study from 12/2022, the LVEF reduction is new. Electronically signed by : Jeannette Jordan MD 05/06/2024 11:35:40
== END 2024-05-05 23:59 | disposition home or self-care (01) ==
LOC: RT 07:47
PROVIDERS: PCP Family Medicine; Visit Provider Internal Medicine
DX: R53.83 Other fatigue (principal); E78.2 Mixed hyperlipidemia; N18.4 Chronic kidney disease, stage 4 (severe); I25.118 Atherosclerotic heart disease of native coronary artery with other forms of angina pectoris; I50.22 Chronic systolic (congestive) heart failure; Z95.810 Presence of automatic (implantable) cardiac defibrillator
CPT/HCPCS: 93306

== ENCOUNTER 2024-05-25 13:34 | Outpatient (CLI) | payer MEDICARE, SELFPAY ==
[2024-05-25 14:02] LABS: Basophils # 0.1 K/mm3 (0-0.2); Eosinophils # 0.2 K/mm3 (0.0-0.4); Eosinophils % 2.5 % (0.1-12.0); Hematocrit 40.5 % (37.0-47.0); Hemoglobin 12.9 g/dL (12.2-16.2); Lymphocytes # 2.3 K/mm3 (0.7-4.5); Lymphocytes % 24.6 % (10-50); Mean Corpuscular HGB Conc 31.8 g/dL (31.8-35.4); Mean Corpuscular Hemoglobin 27.9 pg (27.0-31.2); Mean Corpuscular Volume 87.9 fl (81-99); Mean Platelet Volume 8.7 fl (7.4-10.4); Monocytes # 0.4 K/mm3 (0.1-1.0); Monocytes % 4.4 % (1.7-9.3); Neutrophils # 6.2 K/mm3 (1.8-7.8); Neutrophils % 67.5 % (37.0-80.0); Platelet Count 203 K/mm3 (142-424); White Blood Count 9.3 K/mm3 (4.8-10.8)
[2024-05-25 15:39] LABS: Chloride 106 mmol/L (98-107); Sodium 138 mmol/L (136-145)
[2024-05-25 15:42] LABS: Blood Urea Nitrogen 27 mg/dl (7-17); Estimated Glomerular Filt Rate 36 ml/min (>60); GFR (African American) 44 ML/MIN (>60)
[2024-05-25 15:43] LABS: Calcium 10.1 mg/dl (8.4-10.2); Carbon Dioxide 23 mmol/L (22.0-30.0); Glucose 117 mg/dl (74-100)
== END 2024-05-25 23:59 | disposition home or self-care (01) ==
PROVIDERS: PCP Family Medicine; Visit Provider Internal Medicine
DX: E78.2 Mixed hyperlipidemia (principal); N18.4 Chronic kidney disease, stage 4 (severe); I25.118 Atherosclerotic heart disease of native coronary artery with other forms of angina pectoris; I50.22 Chronic systolic (congestive) heart failure; Z95.810 Presence of automatic (implantable) cardiac defibrillator; R53.83 Other fatigue
CPT/HCPCS: 36415; 80048; 85025

== ENCOUNTER 2024-05-29 19:43 | Outpatient (CLI) | payer MEDICARE, SELFPAY ==
[2024-05-29 20:51] LABS: Anion Gap 9.5 mEq/L (5-15); Blood Urea Nitrogen 28 mg/dl (7-17); Calcium 9.7 mg/dl (8.4-10.2); Carbon Dioxide 27 mmol/L (22.0-30.0); Chloride 109 mmol/L (98-107); Estimated Glomerular Filt Rate 36 ml/min (>60); GFR (African American) 44 ML/MIN (>60); Glucose 119 mg/dl (74-100); Potassium 4.5 mmoL/L (3.5-5.1); Sodium 141 mmol/L (136-145)
== END 2024-05-29 23:59 | disposition home or self-care (01) ==
LOC: LAB.DROPOF 19:45
PROVIDERS: PCP Internal Medicine; Visit Provider Internal Medicine
DX: E87.5 Hyperkalemia (principal)
CPT/HCPCS: 80048

== ENCOUNTER 2024-09-09 13:23 | Outpatient (CLI) | payer MEDICARE, SELFPAY ==
--- NOTE | 2024-09-09 13:26 | CA_ITS ---
APPROVED REPORT EXAM: Limited 2D Echocardiogram Expeller Worker: Glo Seo, RCS, RVS Ht: 5 ft 1 in Wt: 155lbs BSA: 1.69 BP: 158/86 mmHg Indications: CM, AICD, CKD, ex-smoker, CAD, NADIA Echo Enhancing Agent Comments: Technically limited due to patient intolerance to exam 2D Dimensions IVSd 1.16 cm F: 0.6-1.0 LVEF (Visual) 29.80 % PWd 0.92 cm F: 0.6 - 1.0 LVDd 4.60 cm F: 3.9 - 5.3 LVDs 3.96 cm F: 2.2 - 3.5 M-Mode Dimensions LVDd 6.44 cm (3.5-5.7) LVDs 4.95 cm (3.5-5.7) EF (Teich) 45.40% FS 23.10% EDV (Teich) 211.50 mL ESV (Teich) 115.50 mL Other Information Study Quality: Technically Difficult Conclusion This is a limited TTE to evaluate for LVEF and pericardial effusion. Limited windows are obtained. Technically difficult study. The left ventricle is normal in size. There is increased LV wall thickness. There is mild reduction in LV systolic function. The septum is asynchronous. LVEF is 45%. There is a trivial, anterior pericardial effusion present. No echo indications of tamponade. Compared to prior study from 04/2024, the LVEF is slightly improved, but remains reduced. The size and location of the pericardial effusion are overall unchanged. Due to technically difficult study, future evaluations are suggested with administration of ultrasound enhancing agent. Electronically signed by : Jeannette Jordan MD 09/12/2024 00:10:48
[2024-09-09 14:24] LABS: Basophils # 0.1 K/mm3 (0-0.2); Basophils % 0.7 % (0.1-2.0); Eosinophils # 0.2 K/mm3 (0.0-0.4); Eosinophils % 1.8 % (0.1-12.0); Hematocrit 38.9 % (37.0-47.0); Hemoglobin 12.8 g/dL (12.2-16.2); Lymphocytes # 2.1 K/mm3 (0.7-4.5); Lymphocytes % 23.2 % (10-50); Mean Corpuscular HGB Conc 32.9 g/dL (31.8-35.4); Mean Corpuscular Hemoglobin 27.1 pg (27.0-31.2); Mean Corpuscular Volume 82.2 fl (81-99); Mean Platelet Volume 8.5 fl (7.4-10.4); Monocytes # 0.6 K/mm3 (0.1-1.0); Monocytes % 6.3 % (1.7-9.3); Neutrophils # 6.2 K/mm3 (1.8-7.8); Platelet Count 223 K/mm3 (142-424); Red Blood Count 4.73 M/mm3 (4.20-5.40); Red Cell Distribution Width 16.9 % (11.5-17.5); White Blood Count 9.1 K/mm3 (4.8-10.8)
[2024-09-09 14:30] LABS: Albumin Level 4.3 g/dl (3.5-5.0); Chloride 105 mmol/L (98-107)
[2024-09-09 14:31] LABS: Potassium 4.1 mmoL/L (3.5-5.1); Sodium 138 mmol/L (136-145)
[2024-09-09 14:33] LABS: Alanine Aminotransferase 34 U/L (12-78); Anion Gap 8.1 mEq/L (5-15); Aspartate Amino Transferase 47 U/L (14-36); Bilirubin,Unconjugated 0.6 mg/dL (0.0-1.1); Blood Urea Nitrogen 23 mg/dl (7-17); Carbon Dioxide 29 mmol/L (22.0-30.0); Estimated Glomerular Filt Rate 36 ml/min (>60); GFR (African American) 44 ML/MIN (>60); Total Protein,Serum 7.6 g/dl (6.3-8.2)
[2024-09-09 14:34] LABS: Alkaline Phosphatase 141 U/L (38-126); Bilirubin,Direct 0.1 mg/dl (0.0-0.4); Bilirubin,Indirect 0.6 mg/dL (0.0-0.9); Bilirubin,Total 0.7 mg/dl (0.2-1.3); Calcium 9.8 mg/dl (8.4-10.2); Chol/HDL Ratio 4.6 (1-3.5); Cholesterol 225 mg/dl (140-200); Glucose 95 mg/dl (74-100); HDL Cholesterol 49 mg/dl (40-60); Magnesium 1.6 mg/dl (1.6-2.3); Triglycerides 332 mg/dl (30-150); VLDL Cholesterol 66 mg/dL (0-40)
[2024-09-09 14:46] LABS: Direct LDL Cholesterol 85.39 mg/dL (100-129)
[2024-09-09 15:05] LABS: Thyroid Stimulating Hormone 2.49 uIU/mL (0.465-4.68)
[2024-09-09 15:25] LABS: Free T4 (Free Thyroxine) 1.38 ng/dl (0.78-2.19)
== END 2024-09-09 23:59 | disposition home or self-care (01) ==
LOC: RT 13:24
PROVIDERS: PCP Family Medicine; Visit Provider Internal Medicine
DX: I50.22 Chronic systolic (congestive) heart failure (principal); Z95.810 Presence of automatic (implantable) cardiac defibrillator; I25.118 Atherosclerotic heart disease of native coronary artery with other forms of angina pectoris; D50.9 Iron deficiency anemia, unspecified; E03.9 Hypothyroidism, unspecified; N18.4 Chronic kidney disease, stage 4 (severe); E78.2 Mixed hyperlipidemia
CPT/HCPCS: 80048; 80061; 80076; 83735; 84439; 84443; 85025; 93308

== ENCOUNTER 2024-10-01 14:25 | Outpatient (CLI) | payer MEDICARE, SELFPAY ==
--- NOTE | 2024-10-01 14:26 | CA_ITS ---
FINAL REPORT TECHNIQUE: Color Doppler, duplex Doppler and compression sonography of the left lower extremity deep venous systems was performed. CLINICAL HISTORY: s/p fall 2 weeks ago, posterior left knee pain with bending. COMPARISON: None FINDINGS: There is no evidence of deep venous thrombosis from the level of the groin to the calf. The veins are patent and compressible. IMPRESSION: No evidence of deep venous thrombosis left lower extremity. Authenticated and ERN
--- NOTE | 2024-10-01 14:43 | XR_ITS ---
PROCEDURE INFORMATION: Exam: XR Left Knee Exam date and time: 10/01/2024 2:44 PM Age: 79 years old Clinical indication: Pain; Knee; Left; Additional info: Left knee pain TECHNIQUE: Imaging protocol: Radiologic exam of the left knee. Views: 3 views. Total images: 3 COMPARISON: No prior studies available for comparison. FINDINGS: Bones/joints: There are mild degenerative changes of the knee joint, predominantly involving the medial joint compartment. No evidence of acute fracture or dislocation. Soft tissues: Soft tissues are within normal limits. IMPRESSION: 1. There are mild degenerative changes of the knee joint, predominantly involving the medial joint compartment. 2. No evidence of acute fracture or dislocation.
== END 2024-10-01 23:59 | disposition home or self-care (01) ==
LOC: RT 14:26
PROVIDERS: PCP Family Medicine; Visit Provider Family Medicine
DX: M79.605 Pain in left leg (principal)
CPT/HCPCS: 73562; 93971

== ENCOUNTER 2024-10-08 12:48 | Outpatient (CLI) | payer MEDICARE, SELFPAY ==
--- NOTE | 2024-10-08 12:52 | XR_ITS ---
PROCEDURE INFORMATION: Exam: XR Left Knee Exam date and time: 10/08/2024 12:53 PM Age: 79 years old Clinical indication: Pain; Knee; Left; Additional info: Left knee pain TECHNIQUE: Imaging protocol: Radiologic exam of the left knee. Views: 3 views. COMPARISON: CR XR KNEE LT 3V 10/01/2024 2:44 PM FINDINGS: Bones/joints: There is diffuse osseous demineralization. 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 The osseous structures are intact, with no signs of acute fracture, dislocation, or malalignment. There is no evidence of abnormal bone density or destructive lesions. Soft tissues: The soft tissues appear within normal limits. IMPRESSION: At the time of imaging, the study shows no acute osseous abnormalities but does reveal signs of tricompartmental osteoarthritis.
== END 2024-10-08 23:59 | disposition home or self-care (01) ==
LOC: RAD 12:49
PROVIDERS: PCP Family Medicine; Visit Provider Physician Assistant
DX: M25.562 Pain in left knee (principal)
CPT/HCPCS: 73562

== ENCOUNTER 2025-01-14 11:36 | Outpatient (CLI) | payer MEDICARE, SELFPAY ==
--- NOTE | 2025-01-14 | CA_ITS ---
APPROVED REPORT Exam: Pharmacologic Technologist: Ary Gallego Stress Test Details Test: Lexiscan Reason for pharmacologic stress test: physical limitation. HR Resting HR: 81 bpm Max Heart Rate (APMHR): 141.047817 bpm Max HR Achieved: 103 bpm Target HR (85% APMHR): 119.361937 bpm % of APMHR: 73.05 Recovery HR: 92 bpm BP Resting BP: 180.0/94.0 mmHg Max BP: 180.0/94.0 mmHg Recovery BP: 145.0/86.0 mmHg ECG Resting ECG: V-paced Stress ECG Conclusion Symptoms: SOA. Arrhythmias/Ectopy: None. ST-T Changes: None Lexiscan. V-paced. Electronically signed by : Jeannette Jordan MD 01/18/2025 12:58:33
--- NOTE | 2025-01-14 11:41 | NM_ITS ---
APPROVED REPORT Exam: Nuclear Stress Test Indication: SOB, Fatigue, HTN, High cholesterol, CAD, CHF Patient Location: Outpatient Stress Tech: Ary Evans [place] Tech:Isamar Ness TRUDY RT(R)(N) Ht: 5 ft 1 in Wt: 150 lbs Bra Size: C HR: 81 bpm BP: 180/94 mmHg BSA: 1.67 m2 TID: 0.74 BMI: 28.3 History: SOB, Fatigue, HTN, High cholesterol, CAD, CHF Procedure: Patient received 0.0 mg of intravenous Lexiscan, resting heart rate 81 bpm, resting blood pressure 180/94 mmHg, with Lexiscan maximum heart rate achieved was 96 bpm which is % of the maximum predicted heart rate and blood pressure was 161/84 mmHg. With Lexiscan, patient denied any complaint of chest pain. Cardiac Stress and Resting SPECT Images: Cardiac Stress and Resting SPECT images were obtained using technetium 99m Myoview 31.7 mCi stress and 10.17 mCi at rest. Resting and stress imaging in supine and prone positions demonstrate no evidence of fixed or reversible perfusion defects. Gated imaging demonstrates severe reduction of global LV systolic function. LVEF is calculated at 16%. Conclusion: No evidence of fixed or reversible perfusion defects. Gated imaging demonstrates severe reduction of global LV systolic function. LVEF is calculated at 16%. Correlation with new or recent TTE is suggested to confirm reduction in LV function.. Electronically signed by : Jeannette Jordan MD 01/18/2025 12:58:15
[2025-01-14] MEDS: ISOTOPE MYOVIEW (PER STUDY) 1 DOSE IV (14:08)
[2025-01-14] MEDS: REGADENOSON 0.4MG/5ML SYRINGE 0.4 MG IV (14:08)
[2025-01-14] MEDS: SODIUM CHLORIDE 0.9% 10ML SYR (RAD ONLY) 10 ML IV ×2 (14:08)
== END 2025-01-14 23:59 | disposition home or self-care (01) ==
LOC: RAD 11:36
PROVIDERS: PCP Family Medicine; Visit Provider Internal Medicine
DX: I25.118 Atherosclerotic heart disease of native coronary artery with other forms of angina pectoris (principal); I50.22 Chronic systolic (congestive) heart failure; Z95.810 Presence of automatic (implantable) cardiac defibrillator; D50.9 Iron deficiency anemia, unspecified; E03.9 Hypothyroidism, unspecified; N18.4 Chronic kidney disease, stage 4 (severe); E78.2 Mixed hyperlipidemia
CPT/HCPCS: 78452; 93017; 93018; 93306; A9502; J2785

== ENCOUNTER 2025-02-17 13:47 | Outpatient (CLI) | payer MEDICARE, SELFPAY ==
[2025-02-17 14:24] LABS: Basophils # 0.1 K/mm3 (0-0.2); Basophils % 0.5 % (0.1-2.0); Eosinophils # 0.2 K/mm3 (0.0-0.4); Eosinophils % 1.7 % (0.1-12.0); Hematocrit 40.1 % (37.0-47.0); Lymphocytes % 21.6 % (10-50); Mean Corpuscular HGB Conc 32.4 g/dL (31.8-35.4); Mean Corpuscular Hemoglobin 27.2 pg (27.0-31.2); Mean Corpuscular Volume 83.9 fl (81-99); Mean Platelet Volume 11.3 fl (7.4-10.4); Monocytes # 0.8 K/mm3 (0.1-1.0); Monocytes % 8.5 % (1.7-9.3); Neutrophils # 6.3 K/mm3 (1.8-7.8); Neutrophils % 67.3 % (37.0-80.0); Platelet Count 243 K/mm3 (142-424); Red Blood Count 4.78 M/mm3 (4.20-5.40); Red Cell Distribution Width 15.7 % (11.5-17.5); White Blood Count 9.4 K/mm3 (4.8-10.8)
[2025-02-17 14:49] LABS: Albumin Level 4.5 g/dl (3.5-5.0); Chloride 104 mmol/L (98-107); Potassium 4.4 mmoL/L (3.5-5.1); Sodium 140 mmol/L (136-145)
[2025-02-17 14:51] LABS: Blood Urea Nitrogen 29 mg/dl (7-17); Estimated Glomerular Filt Rate 33 ml/min (>60); GFR (African American) 41 ML/MIN (>60)
[2025-02-17 14:52] LABS: Alanine Aminotransferase 32 U/L (12-78); Alkaline Phosphatase 148 U/L (38-126); Anion Gap 13.4 mEq/L (5-15); Aspartate Amino Transferase 48 U/L (14-36); Bilirubin,Direct 0.2 mg/dl (0.0-0.4); Bilirubin,Indirect 0.8 mg/dL (0.0-0.9); Bilirubin,Unconjugated 0.7 mg/dL (0.0-1.1); Calcium 9.9 mg/dl (8.4-10.2); Carbon Dioxide 27 mmol/L (22.0-30.0); Cholesterol 204 mg/dl (140-200); Glucose 115 mg/dl (74-100); Triglycerides 288 mg/dl (30-150); VLDL Cholesterol 58 mg/dL (0-40)
[2025-02-17 14:53] LABS: Chol/HDL Ratio 4.1 (1-3.5); HDL Cholesterol 50 mg/dl (40-60); Magnesium 1.8 mg/dl (1.6-2.3)
[2025-02-17 15:06] LABS: Direct LDL Cholesterol 83.34 mg/dL (100-129)
[2025-02-17 15:21] LABS: Free T4 (Free Thyroxine) 1.64 ng/dl (0.78-2.19)
[2025-02-17 15:36] LABS: Thyroid Stimulating Hormone 3.14 uIU/mL (0.465-4.68)
== END 2025-02-17 23:59 | disposition home or self-care (01) ==
LOC: LAB 13:48
PROVIDERS: PCP Family Medicine; Visit Provider Internal Medicine
DX: E87.5 Hyperkalemia (principal); R53.83 Other fatigue; E78.2 Mixed hyperlipidemia; E03.8 Other specified hypothyroidism; I25.118 Atherosclerotic heart disease of native coronary artery with other forms of angina pectoris; I50.22 Chronic systolic (congestive) heart failure
CPT/HCPCS: 36415; 80048; 80061; 80076; 83735; 84439; 84443; 85025

== ENCOUNTER 2025-08-30 10:28 | Outpatient (CLI) | payer MEDICARE, SELFPAY ==
[2025-08-30 11:38] LABS: Alanine Aminotransferase 38 U/L (12-78); Albumin Level 3.9 g/dl (3.5-5.0); Alkaline Phosphatase 192 U/L (38-126); Aspartate Amino Transferase 57 U/L (14-36); Bilirubin,Direct 0.4 mg/dl (0.0-0.4); Bilirubin,Indirect 0.6 mg/dL (0.0-0.9); Bilirubin,Total 1.0 mg/dl (0.2-1.3); Bilirubin,Unconjugated 0.7 mg/dL (0.0-1.1); Cholesterol 180 mg/dl (140-200); HDL Cholesterol 46 mg/dl (40-60); Total Protein,Serum 6.5 g/dl (6.3-8.2); Triglycerides 247 mg/dl (30-150)
== END 2025-08-30 23:59 | disposition home or self-care (01) ==
LOC: LAB 10:29
PROVIDERS: PCP Family Medicine; Visit Provider Internal Medicine
DX: E87.5 Hyperkalemia (principal); E78.5 Hyperlipidemia, unspecified; E03.9 Hypothyroidism, unspecified; I25.10 Atherosclerotic heart disease of native coronary artery without angina pectoris
CPT/HCPCS: 36415; 80061; 80076